=== PATIENT | male | born 1940 | race Caucasian/White ===

== ENCOUNTER 2016-05-04 07:45 | Inpatient (IN) | payer MEDICARE ==
[2016-05-25] MEDS ORDERED: HEPARIN SODIUM,PORCINE 5,000 UNIT/ML 1 ML VIAL SQ ONE (05:00)
[2016-05-25] MEDS ORDERED: LACTATED RINGERS 1,000 ML IV SCH (06:09)
[2016-05-25] MEDS ORDERED: ONDANSETRON 4 MG/2 ML VIAL IVP ONE ×2 (06:09→14:48)
[2016-05-25] MEDS ORDERED: MIDAZOLAM 2 MG/2 ML VIAL IV PRN (06:09)
[2016-05-25] MEDS ORDERED: LIDOCAINE 1% 20 ML VIAL (10MG/ML) FOR IV START INTRADERMA ONE (11:07)
--- NOTE | 2016-05-25 11:36 | P.GSHP ---
History of Present Illness H&P Date: 05/25/16 Chief Complaint: History of diverticulitis This a 75-year-old male who has a history of perforated diverticulitis. Patient presents today for reversal of colostomy. The patient is aware the risks of surgery including wound infection recurrent colostomy and anastomotic dehiscence. - Constitutional Constitutional: Reports as per HPI Past Medical History Past Medical History: GERD/Reflux, Hyperlipidemia, Hypertension, Myocardial Infarction (OK), Osteoarthritis (OA), Sleep Apnea/CPAP/BIPAP Additional Past Medical History / Comment(s): DIVERTICULITIS. no cpap used. LOST MUCH WEIGHT AFTER HIS SURGERIES. Pleural Effusion Last Myocardial Infarction Date:: 2004 History of Any Multi-Drug Resistant Organisms: None Reported Past Surgical History: Bowel Resection, Coronary Bypass/CABG, Heart Catheterization Additional Past Surgical History / Comment(s): THORACENTESIS IN DECEMBER 2015. Toshia Fundloplication 09/23/2015, 11-04-15 EXPLORATORY LAP"TAKEDOWN OF COLORECTAL ANASTOMOSIS W/END COLOSTOMY". CABG 2004-3 vessel, Past Anesthesia/Blood Transfusion Reactions: No Reported Reaction Past Psychological History: Anxiety Additional Psychological History / Comment(s): pt lives with , currently recieving [facility]. nurse 2 x per week, pt x4 days per week. Smoking Status: Former smoker Past Alcohol Use History: None Reported Additional Past Alcohol Use History / Comment(s): Quit smoking 2014- smoked for 20 yrs 1/2 PPD Past Drug Use History: None Reported - Past Family History Mother Family Medical History: Cancer Additional Family Medical History / Comment(s): . Father Family Medical History: No Reported History Additional Family Medical History / Comment(s): FROM OLD AGE AT 89 Medications and Allergies Home Medications Medication Instructions Recorded Confirmed Type Atorvastatin Calcium [Lipitor] 40 mg PO HS 12/30/14 05/09/16 History Metoprolol Tartrate 25 mg PO BID 12/30/14 05/09/16 History Clopidogrel [Plavix] 75 mg PO DAILY 12/22/15 05/25/16 History Isosorbide Mononitrate ER [Imdur] 30 mg PO QAM 12/22/15 05/09/16 History hydrALAZINE HCL [Apresoline] 50 mg PO TID 12/22/15 05/09/16 History Allergies Allergy/AdvReac Type Severity Reaction Status Date / Time morphine AdvReac Wheezing Verified 05/25/16 11:12 Surgical - Exam Vital Signs Temp Pulse Resp BP Pulse Ox 97 F L 54 L 16 114/54 98 05/25/16 11:18 05/25/16 11:18 05/25/16 11:18 05/25/16 11:18 05/25/16 11:18 - General well developed, no distress - Eyes PERRL - ENT normal pinna - Neck no masses - Respiratory normal expansion - Cardiovascular Rhythm: regular - Abdomen Colostomy in left lower quadrant Abdomen: soft, non tender Assessment and Plan Plan: History of perforated diverticula is. We'll perform reversal of colostomy.
[2016-05-25] MEDS ORDERED: PROPOFOL 10 MG/ML 20 ML VIAL IV ONE (12:18)
[2016-05-25] MEDS ORDERED: ePHEDrine 50 MG/ML 1 ML AMP ONE (12:18)
[2016-05-25] MEDS ORDERED: HYDROmorphone (PF) 1 MG/ML ONE (12:18)
[2016-05-25] MEDS ORDERED: SODIUM CHLORIDE 0.9% 100 ML BAG ONE (12:18)
[2016-05-25] MEDS: ceFAZolin 2 GM in SODIUM CHLORIDE 0.9% 100 ML IVPB ONE ×2 (12:18→15:29)
[2016-05-25] MEDS ORDERED: LIDOCAINE 1% INJ 10MG/ML (20 ML MDV) ONE (12:18)
[2016-05-25] MEDS ORDERED: fentaNYL (PF) 50 MCG/ML 2 ML AMP ONE (12:18)
[2016-05-25] MEDS ORDERED: ceFAZolin 1,000 MG VIAL ONE (12:18)
[2016-05-25] MEDS ORDERED: MIDAZOLAM 2 MG/2 ML VIAL ONE (12:18)
[2016-05-25] MEDS ORDERED: VECURONIUM 10 MG VIAL IV ONE (12:18)
[2016-05-25] MEDS ORDERED: SUCCINYLCHOLINE CHLORIDE 100 MG/5 ML SYR IV ONE (12:18)
[2016-05-25] MEDS ORDERED: LACTATED RINGERS 1,000 ML BAG IV ONE (12:18)
[2016-05-25 12:30] LABS: Basophils # (A) 0.1 k/uL (0-0.2); Basophils % (A) 1 %; CH 31.1; CHCM 34.5; Eosinophils # (A) 0.2 k/uL (0-0.7); Eosinophils % (A) 3 %; HCT 39.5 % (39.0-53.0); Luc # (Auto) 0.11; Luc % (Auto) 2; Lymphocytes # (A) 1.8 k/uL (1.0-4.8); Lymphocytes % (A) 24 %; Mean Platelet Volume 8.4; Monocytes # (A) 0.5 k/uL (0-1.0); Monocytes % (A) 7 %; Neutrophils # (A) 4.7 k/uL (1.3-7.7); Neutrophils % (A) 64 %; RBC 4.35 m/uL (4.30-5.90); RDW 14.8 % (11.5-15.5); WBC 7.4 k/uL (3.8-10.6); WBC (Perox) 7.52
[2016-05-25] MEDS: metroNIDAZOLE-NS PMX 500 MG in SALINE 1 100ML.BAG IVPB ONE ×2 (12:33→15:29)
[2016-05-25 12:40] LABS: Calcium 9.6 mg/dL (8.4-10.2)
[2016-05-25 12:50] LABS: Potassium 4.8 mmol/L (3.5-5.1)
[2016-05-25] MEDS ORDERED: LACTATED RINGERS 1,000 ML IV ONE ×2 (13:09→13:55)
[2016-05-25] MEDS: HYDROmorphone 1 MG/ML 1 ML SYRINGE IVP ONE ×3 (14:36→14:56)
--- NOTE | 2016-05-25 14:45 | P.OP ---
Date of Procedure: 05/25/16 Preoperative Diagnosis: History of perforated diverticulitis Postoperative Diagnosis: History of perforated diverticulitis Parastomal hernia Procedure(s) Performed: Reversal colostomy Repair of parastomal hernia Anesthesia: ROJAS Surgeon: Luke Aguillon Estimated Blood Loss (ml): 100 Pathology: other (Colon) Condition: stable Disposition: PACU Description of Procedure: The patient's placed on the operating room table in the supine position. He received general anesthesia. He was then placed in dorsolithotomy position. His abdomen was prepped and draped usual sterile fashion. The abdomen was entered through the midline incision. There were extensive adhesions. Approximately 30 minutes of operative time used to lyse adhesions. At this point the colostomy was visualized. And then the colon was transected with the ALFONSO stapler at the fascial level. There was a stomal hernia. This was repaired using 0 Ethibond suture. Next the rectal stump was mobilized. It had been previously marked with a 2-0 Prolene. The proximal colon was examined. And then a pursestring device placed across proximal colon. The colon was then opened and the EEA 25 mm anvil was placed in the colon. The pursestring was secured. And then the 25 mm EEA stapler was placed into the anus and passed throughout the rectum. The spike was driven through the rectal staple line. The anvil was then connected to the stapler. The stapler is then fired and then the anvil and stapler withdrawn. There were 2 intact tissue rings on the stapler. Next a hydrocele present used to occlude the proximal colon and then the anastomosis was checked with air insufflation. There is no evidence of extravasation. Another air pressure was used to have the air escaped from the anus. At this point the abdomen was irrigated there is no bleeding seen. The fascia was closed with looped #1 PDS suture. The skin was closed arianne. And then the colostomy was removed by dividing the mucosa and cutaneous junction with the left cautery. The colostomy stump was then withdrawn. A Abigail drains placed in the colostomy site and then the skin was closed arianne. Patient was sent to recovery in stable condition.
[2016-05-25] MEDS ORDERED: METOCLOPRAMIDE 5 MG/ML 2 ML VIAL IVP PRN (14:46)
[2016-05-25] MEDS ORDERED: ONDANSETRON 4 MG/2 ML VIAL IVP PRN (14:46)
[2016-05-25] MEDS ORDERED: hydrALAZINE HCL 20 MG/ML 1 ML VIAL IVP ONE (15:06)
[2016-05-25] MEDS: D5-0.45% NACL WITH KCL 20MEQ/L 1,000 ML IV SCH (19:53)
[2016-05-26] MEDS: HYDROmorphone 1 MG/ML 1 ML SYRINGE IVP PRN ×3 (00:59→08:47)
[2016-05-26] MEDS: D5-0.45% NACL WITH KCL 20MEQ/L 1,000 ML IV SCH ×4 (01:01→23:29)
[2016-05-26 07:31] LABS: Calcium 8.9 mg/dL (8.4-10.2); Potassium 4.9 mmol/L (3.5-5.1)
[2016-05-26 07:57] LABS: Basophils # (A) 0.1 k/uL (0-0.2); Basophils % (A) 1 %; CH 30.7; CHCM 33.6; Eosinophils # (A) 0.1 k/uL (0-0.7); Eosinophils % (A) 1 %; HCT 39.6 % (39.0-53.0); HDW 3.21; HGB 13.2 gm/dL (13.0-17.5); Luc % (Auto) 1; Lymphocytes # (A) 1.3 k/uL (1.0-4.8); Lymphocytes % (A) 11 %; MCH 30.6 pg (25.0-35.0); MCHC 33.2 g/dL (31.0-37.0); Mean Platelet Volume 7.7; Monocytes # (A) 0.5 k/uL (0-1.0); Monocytes % (A) 5 %; Neutrophils # (A) 9.4 k/uL (1.3-7.7); Neutrophils % (A) 82 %; RBC 4.31 m/uL (4.30-5.90); RDW 14.7 % (11.5-15.5); WBC 11.5 k/uL (3.8-10.6); WBC (Perox) 11.37
[2016-05-26] MEDS ORDERED: IPRATROPIUM-ALBUTEROL 3 ML NEB INHALATION PRN (10:29)
[2016-05-26] MEDS ORDERED: LORazepam 2 MG/ML SYRINGE IV PRN (12:21)
--- NOTE | 2016-05-26 12:24 | P.PN ---
Subjective Principal diagnosis: Diverticulitis Patient underwent colostomy reversal yesterday. He is having mild spasm-like pain at times. No bowel function. Denies nausea or vomiting. He is afebrile. White blood cell count 11.5. Objective - Vital Signs Vital signs: Vital Signs Temp 97.3 F L 05/26/16 02:53 Pulse 90 05/26/16 02:53 Resp 16 05/26/16 02:53 BP 157/73 05/26/16 02:53 Pulse Ox 95 05/26/16 02:53 Intake & Output 05/25/16 05/26/16 05/26/16 18:59 06:59 18:59 Intake Total 2900 1125 Output Total 1050 600 Balance 1850 525 Intake: IV 2900 1125 D5-0.45% NaCl with KCl 1125 20Meq/l 1,000 ml @ 125 mls/hr IV .Q8H [facility] Rx#: [id number] Output: Urine 150 600 Estimated Blood Loss 900 - Exam Abdomen: Soft, nondistended, dressing intact, serosanguineous drainage from the ostomy incision site, mild tenderness - Labs CBC & Chem 7: 05/26/16 07:01 05/26/16 07:01 Labs: Abnormal Lab Results - Last 24 Hours (Table) 05/25/16 05/26/16 05/26/16 Range/Units 12:16 07:01 07:01 WBC 11.5 H (3.8-10.6) k/uL Neutrophils # 9.4 H (1.3-7.7) k/uL Chloride 109 H 111 H (98-107) mmol/L Carbon Dioxide 21 L 19 L (22-30) mmol/L BUN 32 H 29 H (9-20) mg/dL Creatinine 2.61 H 2.23 H (0.66-1.25) mg/dL Glucose 135 H (74-99) mg/dL Assessment and Plan (1) Diverticulitis Narrative/Plan: Increase activity level. Change abdominal dressing today. Add Ativan for anxiety and pain purposes. Status: Acute
--- NOTE | 2016-05-26 15:17 | CONS ---
DATE OF CONSULTATION: Bala Velasco is a 75-year-old male who presented to the hospital for reversal of colostomy. He is in the postoperative state and has not had a bowel movement. He does feel some gurgling. He has pain at his abdominal wound site, but otherwise does not have any chest pain. He is slightly short of breath and has required oxygen. His past medical history is positive for gastroesophageal reflux disease, hyperlipidemia, hypertension, coronary artery disease, acute myocardial infarction, obstructive sleep apnea for which he has CPAP, osteoarthritis, coronary artery bypass in 2004, Toshia fundoplication, exploratory laparotomy with takedown of colorectal anastomosis with subsequent end colostomy and diverticulitis. SOCIAL HISTORY: The patient is a former smoker. FAMILY HISTORY: Positive for cancer in his mother. Father of old age at age 89. Medications prior to admission were hydralazine, metoprolol, Imdur, hydrocodone with acetaminophen, Plavix, Lipitor and Xanax. On physical examination, respiratory rate 16, pulse rate 94, temperature 97.7, blood pressure 180/81, O2 sat on room air is 97%. HEENT is unremarkable. Chest reveals decreased breath sounds at the bases. Cardiovascular system reveals an S1 and S2. Abdomen is soft. There is surgical dressing in place. There is trace pedal edema. Labs reveal a white count of 11.5, hemoglobin 13.2. Sodium 140, potassium 4.9, chloride 119, bicarb 19, BUN 29, creatinine 2.23. IMPRESSION: 1. Status post reversal of colostomy. 2. Coronary artery disease with cardiomyopathy. 3. Possible chronic obstructive pulmonary disease. 4. Hypertension. PLAN: At this point in time, continue supplemental oxygen. Keep him on antihypertensive medications. Continue incentive spirometry. Depending on how he does, we shall make further changes to his care.
[2016-05-26] MEDS: ALPRAZolam 0.25 MG TAB PO SCH ×2 (16:03→23:07)
[2016-05-26] MEDS: hydrALAZINE HCL 50 MG TAB PO SCH ×2 (16:04→23:26)
--- NOTE | 2016-05-26 16:54 | CONS ---
DATE OF CONSULTATION: CHIEF COMPLAINT: A 75-year-old white male postoperative for reversal of colostomy. He is feeling better. He is short of breath though and wants something for his breathing. He is requiring oxygen. Normally does not take oxygen at home. He has a past medical history of obstructive sleep apnea for which he takes CPAP, CABG surgery and Toshia, exploratory laparotomy and takedown colorectal anastomosis with subsequent colostomy and diverticulosis. He is a former smoker. Mom had cancer, at old age 89. Medications: 1. Imdur. 2. Metoprolol. 3. Hydralazine. 4. Plavix. 5. Lipitor. 6. Xanax. 7. Hydrocodone. REVIEW OF SYSTEMS: PSYCH: Negative. NEURO: Negative. CARDIAC: Negative. PULMONARY: As mentioned above. GI: As mentioned above. : Negative. VASCULAR: Negative. Immune: Negative. INTEGUMENT: Negative. PHYSICAL EXAMINATION: Blood pressure is high at 170s to 180s/70s to 80s. Temperature 97.7, O2 97% on room air. Chest decreased breath sounds at the bases. CARDIOVASCULAR: S1, S2. ABDOMEN: Soft, nontender. PSYCHIATRIC: Fair mood and affect. NEUROLOGIC: Alert and oriented x3. BUN is 29, creatinine 2.23, potassium 4.9, sodium 140. ASSESSMENT: 1. Status post reversal of colostomy. 2. Coronary artery disease. 3. Cardiomyopathy. 4. Chronic obstructive pulmonary disease. 5. Hypertension. Continue on updraft treatments, antihypertensive medications and incentive spirometry. Home medications are reordered. Updrafts will be given with DuoNeb. Please see further orders.
[2016-05-26] MEDS: ATORVASTATIN 40 MG TAB PO SCH (19:27)
[2016-05-26] MEDS: METOPROLOL TARTRATE 25 MG TAB PO SCH (19:27)
[2016-05-26] MEDS: HEPARIN SODIUM,PORCINE 5,000 UNIT/ML 1 ML VIAL SQ SCH (23:07)
[2016-05-26] MEDS: HYDROcodone/APAP 7.5-325MG 1 EACH TAB PO PRN (23:11)
[2016-05-27] MEDS: HYDROcodone/APAP 7.5-325MG 1 EACH TAB PO PRN ×3 (06:22→17:17)
[2016-05-27 07:27] LABS: Basophils % (A) 0 %; CH 30.7; CHCM 33.4; Eosinophils # (A) 0.4 k/uL (0-0.7); Eosinophils % (A) 4 %; HCT 33.8 % (39.0-53.0); HDW 3.16; HGB 11.1 gm/dL (13.0-17.5); Luc # (Auto) 0.11; Luc % (Auto) 1; Lymphocytes % (A) 11 %; MCH 30.5 pg (25.0-35.0); MCV 92.6 fL (80.0-100.0); Mean Platelet Volume 7.7; Monocytes # (A) 0.5 k/uL (0-1.0); Monocytes % (A) 5 %; Neutrophils % (A) 78 %; RBC 3.65 m/uL (4.30-5.90); RDW 14.6 % (11.5-15.5); WBC (Perox) 9.63
[2016-05-27 07:42] LABS: Calcium 8.8 mg/dL (8.4-10.2); Total Bilirubin 0.5 mg/dL (0.2-1.3); Total Protein 5.1 g/dL (6.3-8.2)
[2016-05-27 07:48] LABS: Potassium 4.6 mmol/L (3.5-5.1)
[2016-05-27] MEDS: ALPRAZolam 0.25 MG TAB PO SCH ×3 (08:28→19:46)
[2016-05-27] MEDS: ISOSORBIDE MONONITRATE ER 30 MG TAB.ER.24H PO SCH (08:28)
[2016-05-27] MEDS: hydrALAZINE HCL 50 MG TAB PO SCH ×3 (08:29→19:46)
[2016-05-27] MEDS: METOPROLOL TARTRATE 25 MG TAB PO SCH ×2 (08:29→19:47)
[2016-05-27] MEDS: HEPARIN SODIUM,PORCINE 5,000 UNIT/ML 1 ML VIAL SQ SCH ×2 (08:29→19:47)
[2016-05-27] MEDS: CLOPIDOGREL 75 MG TAB PO SCH (08:29)
--- NOTE | 2016-05-27 11:20 | P.PN ---
Subjective Principal diagnosis: Diverticulitis Patient doing better today. Spastic pain is improved. He is hungry. No bowel function. White blood cell count is normal. T-max 99 Objective - Vital Signs Vital signs: Vital Signs Temp 99.0 F 05/27/16 07:00 Pulse 66 05/27/16 07:00 Resp 16 05/27/16 08:34 BP 129/66 05/27/16 07:00 Pulse Ox 98 05/27/16 08:34 Intake & Output 05/26/16 05/27/16 05/27/16 18:59 06:59 18:59 Intake Total 1000 1125 Output Total 2550 300 Balance 1000 -1425 -300 Intake: IV 1000 1125 D5-0.45% NaCl with KCl 1000 1125 20Meq/l 1,000 ml @ 125 mls/hr IV .Q8H [facility] Rx#: [id number] Output: Urine 2550 300 Uretheral (Rubio) 2550 300 Other: Voiding Method Indwelling Catheter Indwelling Catheter - Exam Abdomen: Soft, nondistended, mild tenderness, incision clean and dry - Labs CBC & Chem 7: 05/27/16 06:46 05/27/16 06:46 Labs: Abnormal Lab Results - Last 24 Hours (Table) 05/27/16 05/27/16 Range/Units 06:46 06:46 RBC 3.65 L (4.30-5.90) m/uL Hgb 11.1 L (13.0-17.5) gm/dL Hct 33.8 L (39.0-53.0) % Chloride 113 H (98-107) mmol/L Carbon Dioxide 21 L (22-30) mmol/L BUN 21 H (9-20) mg/dL Creatinine 2.10 H (0.66-1.25) mg/dL Glucose 107 H (74-99) mg/dL AST 12 L (17-59) U/L Total Protein 5.1 L (6.3-8.2) g/dL Albumin 2.7 L (3.5-5.0) g/dL Assessment and Plan (1) Diverticulitis Narrative/Plan: Increase activity. Begin clear liquids. Status: Acute
[2016-05-27] MEDS: D5-0.45% NACL WITH KCL 20MEQ/L 1,000 ML IV SCH ×3 (17:17→22:12)
--- NOTE | 2016-05-27 18:59 | PN ---
DATE OF SERVICE: 05/27/2016 He does not complain of shortness of breath. He is using his incentive spirometer as directed. He has had some gurgling, but no bowel movements yet. On physical examination, his blood pressure 142/63, respiratory rate 17, pulse rate of 61, temperature 97. O2 sat on room air is 100%. HEENT is unremarkable. Chest reveals mild prolonged expiration, no clear wheeze. Cardiovascular system reveals an S1 and S2. ABDOMEN: Soft. Bowel sounds are sluggish but heard. There is no edema. Labs reveal a white count of 9, hemoglobin of 11.1. Sodium 141, potassium 4.6, chloride 113, bicarb 21, BUN 21, creatinine of 2.10. IMPRESSION: 1. Status post reversal of colostomy. 2. Coronary artery disease with cardiomyopathy. 3. Chronic obstructive pulmonary disease. 4. Hypertension. Continue incentive spirometry. Increase his activity level. He is off his oxygen, if he does get hypoxic, he may require gentle diuresis. Depending on how he does, we shall make further changes to his care.
[2016-05-27] MEDS: ATORVASTATIN 40 MG TAB PO SCH (19:47)
--- NOTE | 2016-05-27 19:50 | PN ---
75-year-old white male status post colostomy repair, COPD and breathing is much improved since yesterday with the updraft treatments I ordered yesterday. ( ) slowly removed today, as he wants to pee into a regular jar and take his Rubio catheter. I told him I would get it removed. 98% to 100% on room air. Blood pressure is 150s to 120s over 60s. Respiratory rate 16 to 18, pulse is 60s to 70s, temperature 97 to 98. CARDIOVASCULAR: S1 and S2. LUNGS: Transmitted upper airway signs. Decreased breath sounds x4. GI: Soft. Wound appears to be intact. Some mild blood oozing from the wound. HEMATOLOGIC: Negative Homans. ASSESSMENT: 1. Status post colostomy and repair. 2. Chronic obstructive pulmonary disease. Please see further orders on the chart. Rubio catheter will be removed. Medicines reviewed.
[2016-05-28] MEDS: HYDROcodone/APAP 7.5-325MG 1 EACH TAB PO PRN ×3 (07:10→22:59)
[2016-05-28] MEDS: ALPRAZolam 0.25 MG TAB PO SCH ×3 (07:49→21:11)
[2016-05-28] MEDS: ISOSORBIDE MONONITRATE ER 30 MG TAB.ER.24H PO SCH (07:49)
[2016-05-28] MEDS: hydrALAZINE HCL 50 MG TAB PO SCH ×3 (07:49→21:11)
[2016-05-28] MEDS: HEPARIN SODIUM,PORCINE 5,000 UNIT/ML 1 ML VIAL SQ SCH ×2 (07:49→22:56)
[2016-05-28] MEDS: METOPROLOL TARTRATE 25 MG TAB PO SCH ×2 (07:50→21:11)
[2016-05-28] MEDS: D5-0.45% NACL WITH KCL 20MEQ/L 1,000 ML IV SCH ×4 (08:18→23:23)
[2016-05-28] MEDS: CLOPIDOGREL 75 MG TAB PO SCH (10:36)
--- NOTE | 2016-05-28 14:25 | P.PN ---
Subjective 75-year-old being seen on rounds. Currently is resting in bed. Patient currently is denying any dizziness lightheadedness shortness of breath or chest pain. Patient reportedly had a small bowel movement this morning according to the patient. The temp maxed at 99. Patient is postop May 25 a repair of a parastomal hernia with reversal of colostomy done for a perforated diverticulitis Objective - Vital Signs Vital signs: Vital Signs Temp 97.0 F L 05/28/16 13:48 Pulse 61 05/28/16 13:48 Resp 16 05/28/16 13:48 BP 159/72 05/28/16 13:48 Pulse Ox 97 05/28/16 13:48 Intake & Output 05/27/16 05/28/16 05/28/16 18:59 06:59 18:59 Intake Total 1960 1125 1000 Output Total 700 880 500 Balance 1260 245 500 Intake: IV 1000 1125 400 D5-0.45% NaCl with KCl 1000 1125 400 20Meq/l 1,000 ml @ 50 mls /hr IV .Q20H [facility] Rx#: [id number] Oral 960 600 Output: Urine 700 880 500 Uretheral (Rubio) 300 Other: Voiding Method Urinal # Voids 2 # Bowel Movements 1 - Exam Physical exam 75-year-old gentleman resting in bed no postop events noted Lungs diminished at the bases otherwise adequate air movement Heart S1-S2 audible regular Abdomen soft dressing to the surgical site dry. Incontinently urine. No stool. No reports of nausea vomiting bowel tones present Extremities no edema to the upper or lower extremities - Labs CBC & Chem 7: 05/27/16 06:46 05/27/16 06:46 Assessment and Plan Plan: Impression Reversal colostomy with repair of a parastomal hernia done on 05/25/2016 History of perforated diverticulitis COPD stable Hypertension Chronic congestive heart failure systolic dysfunction compensated EF 45-50 on echocardiogram Chronic renal failure stage III Plan Continue postop surgical care per surgical service Increase activity with fall precautions Encourage the use of the incentive spirometer use every 1 hour while awake Resume home meds as appropriate Further recommendations pending DVT and GI prophylaxis The above dictated assessment and findings were discussed with dr marie . Impression and the plan of care have been dictated as directed. Maribel Matias nurse practitioner acting as a scribe for dr marie
[2016-05-28 15:09] VITALS: BMI 21.7
--- NOTE | 2016-05-28 18:02 | P.PN ---
Subjective Principal diagnosis: Diverticulitis Patient is a 75-year-old male with medical history significant for perforated diverticulitis and parastomal hernia status post reversal of colostomy and repair of parastomal hernia, postop day #3. Patient is evaluated on the surgical floor where he sitting on the side of the bed. Patient complains of incisional pain currently rated 7 out of 10. Patient complains of urinary frequency. Denies chills, nausea, vomiting, shortness of breath, or chest pain. Patient denies flatus or bowel movements. Afebrile. No evidence of leukocytosis. Objective - Vital Signs Vital signs: Vital Signs Temp 97.0 F L 05/28/16 13:48 Pulse 61 05/28/16 13:48 Resp 16 05/28/16 13:48 BP 159/72 05/28/16 13:48 Pulse Ox 97 05/28/16 13:48 Intake & Output 05/27/16 05/28/16 05/28/16 18:59 06:59 18:59 Intake Total 1960 1125 1000 Output Total 700 880 500 Balance 1260 245 500 Weight 61.235 kg Intake: IV 1000 1125 400 D5-0.45% NaCl with KCl 1000 1125 400 20Meq/l 1,000 ml @ 50 mls /hr IV .Q20H [facility] Rx#: [id number] Oral 960 600 Output: Urine 700 880 500 Uretheral (Rubio) 300 Other: Voiding Method Urinal # Voids 2 # Bowel Movements 1 - Exam GENERAL: Pt awake and alert, sitting on the side of the bed, appears uncomfortable. LUNGS: Breath sounds diminished to auscultation bilaterally. No wheezes, rales , or rhonchi. HEART: Heart S1, S2, no S3 or S4. Regular rate and rhythm. No murmurs, rubs or gallops. ABDOMEN: Soft, moderate incisional tenderness, nondistended, normoactive bowel sounds. No guarding, no rebound. No masses or organomegaly appreciated. Abdominal dressings dry and intact with some old sanguinous blood. [place] drain intact. NEUROLOGICAL: Pt oriented x 3. - Labs CBC & Chem 7: 05/27/16 06:46 05/27/16 06:46 Assessment and Plan Plan: Impression: 1. History of perforated diverticulitis status post reversal of colostomy on . 2. Parastomal hernia status post repair on 05/25/2016. Plan: 1. Continue clear liquid diet until patient has a bowel movement. Continue supportive treatment and pain management. Increase activity. Continue local wound care. Continue to follow with medical team. The above impression and plan have been discussed and directed by Dr. Aguillon. Declan ARANDA acting as scribe for Dr. Contreras.
--- NOTE | 2016-05-28 18:36 | PN ---
This patient was seen, evaluated, examined. Patient is status post reversal of colostomy. Clinically doing well. Patient has been complaining of increased frequency, has been getting IV fluids as well. Hemodynamic status is stable. Last set of vitals include blood pressure is 170/76, respiratory rate 16 to 18, heart rate 80, temperature 98, saturation 95% to 96%. HEENT: Unremarkable. NECK: Supple. LUNGS: Good air entry bilaterally. HEART: Regular rate and rhythm. ABDOMEN: Soft. No rebound or rigidity. EXTREMITIES: +1 peripheral pulses. NEUROLOGICAL EXAMINATION: Otherwise, awake and alert. Labs reviewed. Medications reviewed. IMPRESSION: 1. Severe chronic obstructive pulmonary disease, emphysema. 2. Chronic obstructive lung disease and chronic persistent asthma as well as obstructive sleep apnea, 3. Coronary artery disease, history of coronary artery bypass grafting. 4. History of advanced diverticulitis, status post colostomy, followed by reversal; doing well in that regard. Will follow.
[2016-05-28] MEDS: ATORVASTATIN 40 MG TAB PO SCH (21:11)
[2016-05-29 08:28] LABS: Basophils % (A) 1 %; CH 30.9; CHCM 33.2; Eosinophils # (A) 0.4 k/uL (0-0.7); Eosinophils % (A) 8 %; HCT 33.5 % (39.0-53.0); HGB 11.1 gm/dL (13.0-17.5); Luc # (Auto) 0.07; Luc % (Auto) 1; Lymphocytes # (A) 1.1 k/uL (1.0-4.8); Lymphocytes % (A) 20 %; MCHC 33.1 g/dL (31.0-37.0); MCV 93.8 fL (80.0-100.0); Monocytes # (A) 0.3 k/uL (0-1.0); Monocytes % (A) 5 %; Neutrophils # (A) 3.4 k/uL (1.3-7.7); Neutrophils % (A) 65 %; RBC 3.57 m/uL (4.30-5.90); RDW 14.6 % (11.5-15.5); WBC 5.2 k/uL (3.8-10.6); WBC (Perox) 5.57
[2016-05-29] MEDS: ISOSORBIDE MONONITRATE ER 30 MG TAB.ER.24H PO SCH (08:31)
[2016-05-29] MEDS: ALPRAZolam 0.25 MG TAB PO SCH ×3 (08:31→21:25)
[2016-05-29] MEDS: hydrALAZINE HCL 50 MG TAB PO SCH ×3 (08:31→21:25)
[2016-05-29] MEDS: HEPARIN SODIUM,PORCINE 5,000 UNIT/ML 1 ML VIAL SQ SCH ×2 (08:31→21:25)
[2016-05-29] MEDS: METOPROLOL TARTRATE 25 MG TAB PO SCH ×2 (08:31→21:25)
[2016-05-29] MEDS: CLOPIDOGREL 75 MG TAB PO SCH (08:31)
[2016-05-29] MEDS: HYDROcodone/APAP 7.5-325MG 1 EACH TAB PO PRN ×2 (08:35→14:14)
[2016-05-29 08:42] LABS: Calcium 9.7 mg/dL (8.4-10.2); Potassium 4.2 mmol/L (3.5-5.1)
--- NOTE | 2016-05-29 12:15 | P.PN ---
Subjective Pleasant 75 rolled gentleman who is being seen on rounds this morning patient has just returned from the bathroom gait noted to be steady. Patient states pain medication effective for pain control. Patient states he did have a bowel movement the day before. Patient is reportedly using the urinal with no difficulty. Reports no nausea vomiting reports tolerating a diet. Has remained afebrile with no white count Objective - Vital Signs Vital signs: Vital Signs Temp 97.7 F 05/29/16 08:00 Pulse 60 05/29/16 08:00 Resp 14 05/29/16 08:00 BP 151/69 05/29/16 08:00 Pulse Ox 96 05/29/16 08:00 Intake & Output 05/28/16 05/29/16 05/29/16 18:59 06:59 18:59 Intake Total 1000 600 360 Output Total 500 580 475 Balance 500 20 -115 Weight 61.235 kg Intake: IV 400 600 D5-0.45% NaCl with KCl 400 600 20Meq/l 1,000 ml @ 50 mls /hr IV .Q20H [facility] Rx#: [id number] Oral 600 360 Output: Urine 500 580 475 Other: Voiding Method Urinal Urinal # Voids 2 # Bowel Movements 1 - Exam Physical exam A 75 -year-old male currently resting in bed pleasant cooperative oriented 3 Lungs adequate air movement bilaterally. No conversational dyspnea noted. No cough noted. On room air sats are documented 96% Heart S1-S2 audible regular no murmur denying chest pain Abdomen not distended slight tenderness at the surgical site. Abdominal dressing dry. No facial grimacing with palpitation to the abdominal wall. Reports no nausea reports tolerating a diet Extremities no evidence of edema to the upper or lower extremity - Labs CBC & Chem 7: 05/29/16 08:05 05/29/16 08:03 Labs: Abnormal Lab Results - Last 24 Hours (Table) 05/29/16 05/29/16 Range/Units 08:03 08:05 RBC 3.57 L (4.30-5.90) m/uL Hgb 11.1 L (13.0-17.5) gm/dL Hct 33.5 L (39.0-53.0) % Chloride 111 H (98-107) mmol/L Creatinine 1.98 H (0.66-1.25) mg/dL Glucose 111 H (74-99) mg/dL Assessment and Plan Plan: Impression Reversal colostomy with repair of a parastomal hernia done on 05/25/2016 History of perforated diverticulitis resulting in a colostomy COPD stable Hypertension Chronic congestive heart failure systolic dysfunction compensated EF 45-50 on echocardiogram Chronic renal failure stage III Plan Continue postop surgical care per surgical service Increase activity with fall precautions Encourage the use of the incentive spirometer use every 1 hour while awake Resume home meds as appropriate Further recommendations pending DVT and GI prophylaxis Discharge timing defer to surgical service from a medical perspective is felt to be medically stable and appropriate to proceed The above dictated assessment and findings were discussed with dr marie . Impression and the plan of care have been dictated as directed. Maribel Matias nurse practitioner acting as a scribe for dr marie
[2016-05-29 14:28] VITALS: RESP 16
--- NOTE | 2016-05-29 15:41 | P.PN ---
Subjective Principal diagnosis: Diverticulitis Patient is a 75-year-old male with medical history significant for perforated diverticulitis and parastomal hernia status post reversal of colostomy and repair of parastomal hernia, postop day #4. Patient is evaluated on the surgical floor where he lying in bed. Patient is feeling better. Denies chills , nausea, vomiting, shortness of breath, or chest pain. Incisional pain controlled. Patient denies flatus with bowel movements. Tolerating soft food diet. Afebrile. No evidence of leukocytosis. Objective - Vital Signs Vital signs: Vital Signs Temp 98.2 F 05/29/16 14:27 Pulse 71 05/29/16 14:27 Resp 16 05/29/16 14:27 BP 182/84 05/29/16 14:27 Pulse Ox 96 05/29/16 14:27 Intake & Output 05/28/16 05/29/16 05/29/16 18:59 06:59 18:59 Intake Total 1000 600 760 Output Total 500 580 775 Balance 500 20 -15 Weight 61.235 kg Intake: IV 400 600 D5-0.45% NaCl with KCl 400 600 20Meq/l 1,000 ml @ 50 mls /hr IV .Q20H [facility] Rx#: [id number] Oral 600 760 Output: Urine 500 580 775 Other: Voiding Method Urinal Urinal # Voids 2 # Bowel Movements 1 - Exam GENERAL: Pt awake and alert, sitting on the side of the bed, appears uncomfortable. LUNGS: Breath sounds diminished to auscultation bilaterally. No wheezes, rales , or rhonchi. HEART: Heart S1, S2, no S3 or S4. Regular rate and rhythm. No murmurs, rubs or gallops. ABDOMEN: Soft, moderate incisional tenderness, nondistended, normoactive bowel sounds. No guarding, no rebound. No masses or organomegaly appreciated. Abdominal dressings dry and intact with some old sanguinous blood. Abigail drain intact. NEUROLOGICAL: Pt oriented x 3. - Labs CBC & Chem 7: 05/29/16 08:05 05/29/16 08:03 Labs: Abnormal Lab Results - Last 24 Hours (Table) 05/29/16 05/29/16 Range/Units 08:03 08:05 RBC 3.57 L (4.30-5.90) m/uL Hgb 11.1 L (13.0-17.5) gm/dL Hct 33.5 L (39.0-53.0) % Chloride 111 H (98-107) mmol/L Creatinine 1.98 H (0.66-1.25) mg/dL Glucose 111 H (74-99) mg/dL Assessment and Plan Plan: Impression: 1. History of perforated diverticulitis status post reversal of colostomy on . 2. Parastomal hernia status post repair on 05/25/2016. Plan: 1. Continue soft diet. Continue supportive treatment and pain management. Increase activity. Continue local wound care. Continue to follow with medical team. The above impression and plan have been discussed and directed by Dr. Aguillon. Declan ARANDA acting as scribe for Dr. Contreras.
[2016-05-29] MEDS: D5-0.45% NACL WITH KCL 20MEQ/L 1,000 ML IV SCH (16:33)
[2016-05-29] MEDS: ATORVASTATIN 40 MG TAB PO SCH (21:25)
[2016-05-30 07:51] VITALS: BP 147/78; PULSE 73; TEMP 98
[2016-05-30] MEDS: ALPRAZolam 0.25 MG TAB PO SCH ×2 (08:55→16:31)
[2016-05-30] MEDS: METOPROLOL TARTRATE 25 MG TAB PO SCH (08:56)
[2016-05-30] MEDS: hydrALAZINE HCL 50 MG TAB PO SCH ×2 (08:56→16:31)
[2016-05-30] MEDS: HEPARIN SODIUM,PORCINE 5,000 UNIT/ML 1 ML VIAL SQ SCH (08:56)
[2016-05-30] MEDS: CLOPIDOGREL 75 MG TAB PO SCH (08:56)
[2016-05-30] MEDS: ISOSORBIDE MONONITRATE ER 30 MG TAB.ER.24H PO SCH (08:57)
[2016-05-30] MEDS: HYDROcodone/APAP 7.5-325MG 1 EACH TAB PO PRN ×3 (09:12→16:32)
--- NOTE | 2016-05-30 13:39 | P.PN ---
Subjective 75-year-old male up ambulating in the room this morning. Patient states he had a bowel movement this morning. Patient is denying any cough fever chills shortness breath or chest pain. Patient states pain medication has been effective for pain control. Patient states is anxious to be discharged home. Patient is postop day 5 of reversal of colostomy and a repair of a parastomal hernia. Patient does have a past medical history significant for perforated diverticulitis Objective - Vital Signs Vital signs: Vital Signs Temp 98.0 F 05/30/16 07:50 Pulse 73 05/30/16 07:50 Resp 16 05/30/16 07:50 BP 147/78 05/30/16 07:50 Pulse Ox 96 05/30/16 07:50 Intake & Output 05/29/16 05/30/16 05/30/16 18:59 06:59 18:59 Intake Total 1000 480 Output Total 1475 900 Balance -475 -900 480 Intake: Oral 1000 480 Output: Urine 1475 900 Other: Voiding Method Urinal Urinal # Voids 1 - Exam Physical exam 75 -year-old male pleasant oriented 3 up in room states has been up ambulating in the [place] denies any dizziness lightheadedness or shortness of breath or chest pain Lungs essentially clear on room air no cough noted Heart S1-S2 audible regular Abdomen currently has an abdominal binder in place soft nontender not distended bowel tones 4 quadrants urinating no difficulty Extremities no edema noted - Labs CBC & Chem 7: 05/29/16 08:05 05/29/16 08:03 Assessment and Plan Plan: Impression Reversal colostomy with repair of a parastomal hernia done on 05/25/2016 History of perforated diverticulitis resulting in a colostomy COPD stable Hypertension Chronic congestive heart failure systolic dysfunction compensated EF 45-50 on echocardiogram Chronic renal failure stage III Past medical history for perforated diverticulitis resulting in an colostomy Plan Continue postop surgical care per surgical service Increase activity with fall precautions Encourage the use of the incentive spirometer use every 1 hour while awake Resume home meds as appropriate Further recommendations pending DVT and GI prophylaxis Discharge timing defer to surgical service from a medical perspective is felt to be medically stable and appropriate to proceed The above dictated assessment and findings were discussed with dr marie . Impression and the plan of care have been dictated as directed. Maribel Matias nurse practitioner acting as a scribe for dr marie
[2016-05-30] MEDS: D5-0.45% NACL WITH KCL 20MEQ/L 1,000 ML IV SCH (16:34)
--- NOTE | 2016-05-30 16:51 | PN ---
This patient was seen, evaluated, examined. This is a 75-year-old with reversal of colostomy. Patient clinically has been doing well, awake and alert. He is on full-liquid diet, tolerating well. No other specific complaints are present. Breathing comfortably. Denies any chest pain. Blood pressure is 150/80, respiratory rate 16, pulse 73, temperature 98, saturation 96%. HEENT: Unremarkable. NECK: Supple. LUNGS: Good air entry bilaterally. HEART: Regular rate, rhythm. ABDOMEN: Soft. NEUROLOGICAL EXAMINATION: Otherwise awake and alert. Labs reviewed. Medications reviewed as well. IMPRESSION: 1. Status post diverticulitis and perforation requiring colostomy, now with reversal of colostomy and repair of parastomal hernia, doing well. 2. Severe chronic obstructive pulmonary disease and chronic persistent asthma. 3. Hypertension, hypertensive cardiovascular disease. 4. Coronary artery disease. 5. History of coronary artery bypass grafting. 6. Congestive heart failure with chronic systolic heart failure related to above. 7. Chronic renal failure. 8. Restless leg syndrome. 9. Sleep apnea, on CPAP machine. PLAN: As above. Continue supportive care. Increase activity as tolerated. I agree with discharge planning with followup in outpatient setting.
--- NOTE | 2016-05-30 17:07 | P.DS ---
Providers Date of admission: 05/25/16 10:34 Expected date of discharge: 05/30/16 Attending physician: Luke Aguillon Consults: 05/25/16 14:46 Consult Physician Routine Consulting Provider: Karthikeyan Mendiola Consult Reason/Comments: Medical management Do you want consulting provider notified?: Yes 05/25/16 14:49 Consult Physician Routine Consulting Provider: Gerardo Quiros Consult Reason/Comments: Medical management Do you want consulting provider notified?: Yes Primary care physician: Gerardo [facility] Course: Patient is a 75-year-old male with medical history significant for perforated diverticulitis who presented to the hospital for reversal of colostomy and repair of parastomal hernia. Patient tolerated procedure well. Patient had an uneventful post operative course. Patient was felt stable for discharge to home with home care. Discharge diagnoses: History of perforated diverticulitis resulting in a colostomy status post reversal of colostomy with repair of parastomal hernia on 05/25/2016. The above impression and plan have been discussed and directed by Dr. Aguillon. Declan ARANDA acting as scribe for Dr. Aguillon. Procedures: Reversal colostomy; repair of parastomal hernia Patient Condition at Discharge: Good Plan - Discharge Summary New Discharge Prescriptions: HYDROcodone/APAP 7.5-325MG [[place] 7.5-325] 1 each PO QID PRN #28 tab PRN Reason: Pain Discharge Medication List Atorvastatin Calcium [Lipitor] 40 mg PO HS 12/30/14 [History] Metoprolol Tartrate 25 mg PO BID 12/30/14 [History] ALPRAZolam [Xanax] 0.25 mg PO TID #21 tab 11/14/15 [Rx] Clopidogrel [Plavix] 75 mg PO DAILY 12/22/15 [History] Isosorbide Mononitrate ER [Imdur] 30 mg PO QAM 12/22/15 [History] hydrALAZINE HCL [Apresoline] 50 mg PO TID 12/22/15 [History] HYDROcodone/APAP 7.5-325MG [[place] 7.5-325] 1 each PO QID PRN #28 tab 05/29/16 [ Rx] Follow up Appointment(s)/Referral(s): Gerardo Quiros MD [Primary Care Provider] - 06/01/16 1:45 pm (FOLLOW UP IN OFFICE IN 1-2 DAYS.) [facility], [NON-STAFF] - Karthikeyan Mendiola MD [STAFF PHYSICIAN] - 06/04/16 (PLEASE CALL FOR APPOINTMENT, OFFICE CLOSED AT TIME OF DISCHARGE.) Luke Aguillon MD [STAFF PHYSICIAN] - 06/07/16 3:50 pm Patient Instructions/Handouts: Open Colostomy Reversal (DC), Staple Care (DC) Activity/Diet/Wound Care/Special Instructions: No heavy lifting, pushing, or pulling items greater than 10 pounds. Soft diet Shower daily, no soaking in bath tubs, pools, or hot tubs. No driving while taking pain medication. Notify surgeon with any signs or symptoms of infection, increased pain, or not tolerating diet. Discharge Disposition: HOME WITH HOME HEALTH SERVICES
== END 2016-05-30 16:37 | disposition home health service (06) | DRG 330 ==
LOC: 2ORWHC 05-25 10:34 → 3SUR 05-25 14:18
PROVIDERS: ADMIT Surgery; ATTEND Surgery
PROC: 0WQF0ZZ Repair Abdominal Wall, Open Approach (ICD-10-PCS; 2016-05-25)
PROC: 0DNW0ZZ Release Peritoneum, Open Approach (ICD-10-PCS; 2016-05-25)
PROC: 0DQE0ZZ Repair Large Intestine, Open Approach (ICD-10-PCS; principal; 2016-05-25 12:35)
DX: Z43.3 Encounter for attention to colostomy (principal); I13.0 Hypertensive heart and chronic kidney disease with heart failure and stage 1 through stage 4 chronic kidney disease, or unspecified chronic kidney disease; I42.9 Cardiomyopathy, unspecified; I50.22 Chronic systolic (congestive) heart failure; K57.92 Diverticulitis of intestine, part unspecified, without perforation or abscess without bleeding; E78.5 Hyperlipidemia, unspecified; F41.9 Anxiety disorder, unspecified; G25.81 Restless legs syndrome; G47.33 Obstructive sleep apnea (adult) (pediatric); I25.10 Atherosclerotic heart disease of native coronary artery without angina pectoris; I25.2 Old myocardial infarction; J44.9 Chronic obstructive pulmonary disease, unspecified; K21.9 Gastro-esophageal reflux disease without esophagitis; K43.5 Parastomal hernia without obstruction or gangrene; M19.90 Unspecified osteoarthritis, unspecified site; N18.3 Chronic kidney disease, stage 3 (moderate); K57.90 Diverticulosis of intestine, part unspecified, without perforation or abscess without bleeding; R35.0 Frequency of micturition; K66.0 Peritoneal adhesions (postprocedural) (postinfection); J45.30 Mild persistent asthma, uncomplicated; Z87.891 Personal history of nicotine dependence; Z95.1 Presence of aortocoronary bypass graft; Z79.02 Long term (current) use of antithrombotics/antiplatelets; Z79.899 Other long term (current) drug therapy; Z88.5 Allergy status to narcotic agent
CPT/HCPCS: 80048; 80053; 85025; 88304

== ENCOUNTER → 2017-03-01 | Outpatient (CLI) | payer MEDICARE ==
[2017-03-01 10:25] LABS: Basophils # (A) 0.1 k/uL (0-0.2); Basophils % (A) 1 %; CH 29.7; CHCM 32.4; Eosinophils # (A) 0.4 k/uL (0-0.7); Eosinophils % (A) 5 %; HCT 39.4 % (39.0-53.0); HDW 2.96; HGB 13.5 gm/dL (13.0-17.5); Luc # (Auto) 0.14; Luc % (Auto) 2; Lymphocytes # (A) 2.2 k/uL (1.0-4.8); Lymphocytes % (A) 29 %; MCH 31.5 pg (25.0-35.0); MCHC 34.2 g/dL (31.0-37.0); MCV 92.2 fL (80.0-100.0); Mean Platelet Volume 7.6; Monocytes # (A) 0.4 k/uL (0-1.0); Monocytes % (A) 5 %; Neutrophils # (A) 4.5 k/uL (1.3-7.7); Neutrophils % (A) 58 %; RBC 4.27 m/uL (4.30-5.90); RDW 13.8 % (11.5-15.5); WBC 7.7 k/uL (3.8-10.6); WBC (Perox) 8.09
== END | disposition home or self-care (01) ==
LOC: LABWHC1 09:31
PROVIDERS: ATTEND Surgery
DX: Z01.818 Encounter for other preprocedural examination (principal); K43.2 Incisional hernia without obstruction or gangrene; D64.9 Anemia, unspecified; F17.200 Nicotine dependence, unspecified, uncomplicated
CPT/HCPCS: 36415; 85025; 86850; 86900; 86901

== ENCOUNTER 2017-03-05 06:09 | Day surgery (SDC) | payer MEDICARE ==
[2017-02-28 11:14] VITALS: BMI 23.3
[~2017-03-05 06:09] MED LIST: DEXAMETHASONE SOD PHOSPHATE 10 MG/ML 1 ML VIAL IV ONE; HEPARIN SODIUM,PORCINE 5,000 UNIT/ML 1 ML VIAL SQ ONE; MIDAZOLAM 2 MG/2 ML VIAL IV PRN; ONDANSETRON 4 MG/2 ML VIAL IVP ONE; ceFAZolin 2 GM in SODIUM CHLORIDE 0.9% 100 ML IVPB ONE
[2017-03-05] MEDS ORDERED: LIDOCAINE 1% 20 ML VIAL (10MG/ML) FOR IV START INTRADERMA ONE (07:07)
[2017-03-05] MEDS: LACTATED RINGERS 1,000 ML IV SCH (07:11)
[2017-03-05] MEDS ORDERED: BUPIVACAINE-EPI 0.5%-1:200,000 10 ML VIAL SQ ONE (07:41)
--- NOTE | 2017-03-05 08:02 | P.GSHP ---
History of Present Illness H&P Date: 03/05/17 Chief Complaint: Incisional hernia Cyst 76-year-old male who presents today for laparoscopic robotic system repair of incisional hernia. Patient has a history of Marci procedure procedure and then reversal of Marci. He is also incisional hernia along his midline incision. Patient is aware the risk of conversion to the open procedure due to adhesions. Past Medical History Past Medical History: Hyperlipidemia, Hypertension, Myocardial Infarction ([place]) Additional Past Medical History / Comment(s): DIVERTICULITIS, restless leg syndrome, Last Myocardial Infarction Date:: 2004 History of Any Multi-Drug Resistant Organisms: None Reported Past Surgical History: Bowel Resection, Coronary Bypass/CABG, Heart Catheterization Additional Past Surgical History / Comment(s): CABG 2004-3 vessel, heart cath 2004, colostomy/later reversal, Past Anesthesia/Blood Transfusion Reactions: No Reported Reaction Past Psychological History: Anxiety Additional Psychological History / Comment(s): . Smoking Status: Former smoker Past Alcohol Use History: None Reported Additional Past Alcohol Use History / Comment(s): quit smoking 3-4 yrs ago, started smoking age 17, 1/2 PPD Past Drug Use History: None Reported - Past Family History Mother Family Medical History: Cancer Additional Family Medical History / Comment(s): brain Father Family Medical History: No Reported History Additional Family Medical History / Comment(s): FROM OLD AGE AT 89 Medications and Allergies Home Medications Medication Instructions Recorded Confirmed Type Atorvastatin Calcium [Lipitor] 40 mg PO HS 12/30/14 02/28/17 History Metoprolol Tartrate 25 mg PO BID 12/30/14 02/28/17 History ALPRAZolam [Xanax] 0.25 mg PO TID #21 tab 11/14/15 02/28/17 Rx Clopidogrel [Plavix] 75 mg PO DAILY 12/22/15 03/05/17 History Isosorbide Mononitrate ER [Imdur] 30 mg PO QAM 12/22/15 02/28/17 History hydrALAZINE HCL [Apresoline] 50 mg PO TID 12/22/15 02/28/17 History HYDROcodone/APAP 7.5-325MG [[place] 1 each PO QID PRN #28 tab 05/29/16 02/28/17 Rx 7.5-325] Allergies Allergy/AdvReac Type Severity Reaction Status Date / Time morphine AdvReac Wheezing Verified 03/05/17 06:50 Surgical - Exam Vital Signs Temp Pulse Resp BP Pulse Ox 97.8 F 52 L 18 119/61 100 03/05/17 06:59 03/05/17 06:59 03/05/17 06:59 03/05/17 06:59 03/05/17 06:59 - General well developed, no distress - Eyes PERRL - ENT normal pinna - Neck no masses - Respiratory normal expansion - Cardiovascular Rhythm: regular - Abdomen Midline incisional hernia Abdomen: soft, non tender Assessment and Plan Plan: Internal hernia. We'll perform laparoscopic robotic assistance repair.
[2017-03-05] MEDS ORDERED: ROCURONIUM BROMIDE 10 MG/ML 10 ML VIAL IV ONE (08:15)
[2017-03-05] MEDS ORDERED: MIDAZOLAM 2 MG/2 ML VIAL ONE (08:15)
[2017-03-05] MEDS ORDERED: GLYCOPYRROLATE 0.2 MG/ML 2 ML VIAL ONE (08:15)
[2017-03-05] MEDS ORDERED: NEOSTIGMINE 1 MG/ML 10 ML VIAL ONE (08:15)
[2017-03-05] MEDS ORDERED: fentaNYL (PF) 50 MCG/ML 2 ML AMP ONE (08:15)
[2017-03-05] MEDS ORDERED: HYDROmorphone (PF) 1 MG/ML ONE (08:15)
[2017-03-05] MEDS ORDERED: LIDOCAINE 1% INJ 10MG/ML (20 ML MDV) ONE (08:15)
[2017-03-05] MEDS ORDERED: SUCCINYLCHOLINE CHLORIDE 100 MG/5 ML SYR IV ONE (08:15)
[2017-03-05] MEDS ORDERED: PROPOFOL 10 MG/ML 20 ML VIAL IV ONE (08:15)
[2017-03-05] MEDS ORDERED: SODIUM CHLORIDE 0.9% 500 ML IV ONE ×2 (10:19)
[2017-03-05] MEDS ORDERED: ONDANSETRON 4 MG/2 ML VIAL IVP PRN (10:59)
[2017-03-05] MEDS ORDERED: ACETAMINOPHEN TAB 325 MG TAB PO PRN (10:59)
[2017-03-05] MEDS ORDERED: HYDROmorphone 0.5 MG/0.5 ML SYRINGE IVP PRN (10:59)
[2017-03-05] MEDS ORDERED: NALOXONE 0.4 MG/ML 1 ML VIAL IV PRN (10:59)
[2017-03-05] MEDS ORDERED: METOCLOPRAMIDE 5 MG/ML 2 ML VIAL IVP PRN (10:59)
[2017-03-05] MEDS ORDERED: HYDROcodone/APAP 5-325MG 1 EACH TAB PO PRN (10:59)
[2017-03-05] MEDS ORDERED: LACTATED RINGERS 1,000 ML IV ONE ×2 (10:59→11:15)
[2017-03-05] MEDS: HYDROmorphone 0.5 MG/0.5 ML SYRINGE IVP PRN ×4 (11:04→11:43)
[2017-03-05] MEDS ORDERED: hydrALAZINE HCL 20 MG/ML 1 ML VIAL IVP ONE (11:14)
--- NOTE | 2017-03-05 11:21 | P.OP ---
Date of Procedure: 03/05/17 Preoperative Diagnosis: Incisional hernia Postoperative Diagnosis: Incisional hernia Adhesions Procedure(s) Performed: Laparoscopic lysis of adhesions Laparoscopic robotic-assisted repair of incisional hernia Anesthesia: ROJAS Surgeon: Luke Aguillon Estimated Blood Loss (ml): 10 Pathology: none sent Condition: stable Disposition: PACU Description of Procedure: The patient's placed on the operating table in the supine position. He received general anesthesia. His abdomen was prepped and draped usual sterile fashion. A Schnidt in the midline incision which contained incisional hernia. The skin incision sites were anesthetized 1% local Xylocaine. Using a 5 mm optical trocar under direct visualization panel cavity is entered in the right lateral position. The laparoscope was placed back the pleural cavity. There were adhesions noted along the midline. Next a 8 mm robotic trochars placed in the right upper quadrant and another 8 mm robotic trochars placed the right lower quadrant. Using laparoscopic Metzenbaum scissors the adhesions were lysed. The original 5 mm trocar was exchanged for a 12 mm trocar. The robot was then docked to the patient. Further lyse adhesions were performed using the da Rex robot using hook cautery and the monopolar fenestrator grasper. After the adhesions were lysed. The fascial defect was reapproximated using the #1 status fixed suture. And then a ventral light ST mesh was secured over top the repair using a combination of 20 the lock suture. The patient was then undocked the robot. The needles were retrieved. The secure strep tacker was used to secure the mesh. The trochars withdrawn. The skin was closed with 3-0 Monocryl suture. Dermabond was applied. Patient top she will well and was sent to recovery in stable condition.
[2017-03-05] MEDS ORDERED: METOPROLOL TARTRATE 5 MG/5 ML VIAL IVP ONE (11:43)
[2017-03-05] MEDS: KETOROLAC 30 MG/ML 1 ML VIAL IVP SCH ×3 (12:20→23:18)
[2017-03-05] MEDS ORDERED: HYDROcodone/APAP 7.5-325MG 1 EACH TAB PO PRN (13:52)
--- NOTE | 2017-03-05 14:06 | P.HPIM ---
History of Present Illness H&P Date: 03/05/17 Chief Complaint: internal hernia This is a 76-year-old male known to our services. He is Being seen examined and evaluated today, who presents status post laparoscopic robotic system repair of incisional hernia. Patient has a history of Marci procedure procedure and then reversal of Marci. He is also incisional hernia along his midline incision. The patient does not normally wear oxygen at home. He does wear BiPAP at home, history of obstructive sleep apnea. Patient also has a history of COPD, chronic persistent asthma, hypertension, hypertensive cardiovascular disease, CAD, history of CABG, congestive heart failure, chronic renal failure and restless leg syndrome. Patient is seen resting up in bed on 2 L of supplemental oxygen, she was noted to have desaturations postsurgical requiring administration of oxygen. He does have some exertional shortness of breath, does have some diffuse abdominal discomfort post surgery. Abdominal binder contact dressing is clean dry and intact. He is afebrile, no further complaints. Significant other is at bedside and updated and plan of care, all questions answered. Review of Systems 14 point review of system was completed and is negative outside above in the HPI. Past Medical History Past Medical History: COPD, Hyperlipidemia, Hypertension, Myocardial Infarction ([place]) Additional Past Medical History / Comment(s): DIVERTICULITIS, restless leg syndrome, Last Myocardial Infarction Date:: 2004 History of Any Multi-Drug Resistant Organisms: None Reported Past Surgical History: Bowel Resection, Coronary Bypass/CABG, Heart Catheterization Additional Past Surgical History / Comment(s): CABG 2004-3 vessel, heart cath 2004, colostomy/later reversal, Past Anesthesia/Blood Transfusion Reactions: No Reported Reaction Past Psychological History: Anxiety Additional Psychological History / Comment(s): . Smoking Status: Former smoker Past Alcohol Use History: None Reported Additional Past Alcohol Use History / Comment(s): quit smoking 3-4 yrs ago, started smoking age 17, 1/2 PPD Past Drug Use History: None Reported - Past Family History Mother Family Medical History: Cancer Additional Family Medical History / Comment(s): brain Father Family Medical History: No Reported History Additional Family Medical History / Comment(s): FROM OLD AGE AT 89 Medications and Allergies Home Medications Medication Instructions Recorded Confirmed Type Atorvastatin Calcium [Lipitor] 40 mg PO HS 12/30/14 02/28/17 History Metoprolol Tartrate 25 mg PO BID 12/30/14 02/28/17 History ALPRAZolam [Xanax] 0.25 mg PO TID #21 tab 11/14/15 02/28/17 Rx Clopidogrel [Plavix] 75 mg PO DAILY 12/22/15 03/05/17 History Isosorbide Mononitrate ER [Imdur] 30 mg PO QAM 12/22/15 02/28/17 History hydrALAZINE HCL [Apresoline] 50 mg PO TID 12/22/15 02/28/17 History HYDROcodone/APAP 7.5-325MG [[place] 1 each PO QID PRN #28 tab 05/29/16 02/28/17 Rx 7.5-325] Allergies Allergy/AdvReac Type Severity Reaction Status Date / Time morphine AdvReac Wheezing Verified 03/05/17 06:50 Physical Exam Vitals: Vital Signs Temp Pulse Resp BP Pulse Ox 03/05/17 11:52 71 16 145/74 99 03/05/17 11:44 72 16 165/74 100 03/05/17 11:30 82 16 175/70 100 03/05/17 11:11 69 16 186/76 100 03/05/17 10:59 67 16 183/73 100 03/05/17 10:48 97.9 F 73 16 168/77 100 03/05/17 06:59 97.8 F 52 L 18 119/61 100 Intake and Output 03/04/17 03/05/17 03/05/17 22:59 06:59 14:59 Intake Total 1600 Output Total 20 Balance 1580 Intake: IV 1600 Output: Estimated Blood Loss 20 GENERAL EXAM: Alert, active, comfortable in no apparent distress. HEAD: Normocephalic. EYES: Normal reaction of pupils, equal size. NOSE: Clear with pink turbinates. THROAT: No erythema or exudates. NECK: No masses, no JVD. CHEST: No chest wall deformity. LUNGS: Equal air entry with no crackles, wheeze, rhonchi or dullness. Bases diminished CVS: S1 and S2 normal with no audible mumurs, regular rhythm. ABDOMEN: No hepatosplenomegaly, hypoactive bowel sounds, no guarding or rigidity. Abdominal binder in place dressing looks clean dry and intact. EXTREMITIES: No edema noted, pedal pulses palpable. SKIN: No rashes CENTRAL NERVOUS SYSTEM: No focal deficits, tone is normal in all 4 extremities. Thrombosis Risk Factor Assmnt - DVT/VTE Prophylaxis DVT/VTE Prophylaxis: Pharmacologic Prophylaxis ordered - Choose All That Apply Each Factor Represents 1 point: Acute ID, Hx of IBD Each Risk Factor Represents 2 Points: Laparoscopic surgery, Major surgery Each Risk Factor Represents 3 Points: Age 75 years or older Thrombosis Risk Factor Assessment Total Risk Factor Score: 9 Thrombosis Risk Factor Assessment Level: High Risk Assessment and Plan Plan: Assessment Status post laparoscopic robotic repair of incisional hernia Acute hypoxic respiratory failure requiring supplemental oxygen post surgical procedure History of chronic obstructive pulmonary disease Hypertension, hypertensive cardiovascular disease Coronary artery disease History of coronary artery bypass grafting Congestive heart failure, systolic Restless leg syndrome Obstructive sleep apnea Plan Medications have been reviewed and will be continued as ordered. Home medications have been reviewed and restarted with the option of the Plavix, will defer to surgical services when they would like that restarted. Postsurgical instructions per surgeon. May use home BiPAP. Continue with pulmonary hygiene, coughing and deep breathing exercises, and supportive care. Supplemental oxygen to maintain oxygen saturations of 92% or better.. GI and DVT prophylaxis. We will continue to monitor labs/results and adjust treatment as necessary. Further recommendations pending. I performed an examination of the patient and discussed their management with the nurse practitioner. I have reviewed the nurse practitioner's note and agree with the documented findings and plan of care.
[2017-03-05] MEDS: ALPRAZolam 0.25 MG TAB PO SCH ×2 (15:07→21:27)
[2017-03-05] MEDS: hydrALAZINE HCL 50 MG TAB PO SCH ×2 (15:15→21:27)
[2017-03-05] MEDS ORDERED: ATORVASTATIN 40 MG TAB PO SCH (21:00)
[2017-03-05] MEDS: METOPROLOL TARTRATE 25 MG TAB PO SCH (21:27)
[2017-03-06] MEDS: KETOROLAC 30 MG/ML 1 ML VIAL IVP SCH ×2 (06:07→12:09)
[2017-03-06] MEDS: LACTATED RINGERS 1,000 ML IV SCH (06:09)
[2017-03-06 07:23] VITALS: BP 134/62; PULSE 56; RESP 16; TEMP 97.9
[2017-03-06] MEDS: METOPROLOL TARTRATE 25 MG TAB PO SCH (07:44)
[2017-03-06] MEDS: hydrALAZINE HCL 50 MG TAB PO SCH (07:44)
[2017-03-06] MEDS: ALPRAZolam 0.25 MG TAB PO SCH (07:44)
[2017-03-06] MEDS ORDERED: IPRATROPIUM-ALBUTEROL 3 ML NEB INHALATION SCH (08:00)
[2017-03-06] MEDS ORDERED: BUDESONIDE 0.5 MG/2 ML NEBU INHALATION SCH (08:00)
[2017-03-06] MEDS ORDERED: ENOXAPARIN 40 MG/0.4 ML SYRINGE SQ SCH (09:00)
[2017-03-06] MEDS ORDERED: ISOSORBIDE MONONITRATE ER 30 MG TAB.ER.24H PO SCH (09:00)
--- NOTE | 2017-03-06 09:22 | XR ---
EXAMINATION TYPE: XR chest 2V DATE OF EXAM: 03/06/2017 COMPARISON: 01/17/2016 INDICATION: Short of breath TECHNIQUE: Frontal and lateral views of the chest are obtained. FINDINGS: The heart size is normal. The pulmonary vasculature is normal. There is a left lower lobe infiltrate. Minimal elevation left diaphragm may be present. Posterior inf iltrate is on the lateral projection. Sternotomy wires from previous CABG are evident.. IMPRESSION: 1. Left lower lobe infiltrate suspicious for pneumonia.
--- NOTE | 2017-03-06 09:23 | P.PN ---
Subjective Progress Note Date: 03/06/17 Principal diagnosis: Incisional hernia, chronic hypoxic respiratory failure, severe COPD, severe degree of restless leg syndrome, obstructive sleep apnea on CPAP, history of coronary artery disease with history of CABG Patient status post a incisional hernia repair doing well breathing comfortably denies any chest pain cough chest x-ray just has been performed which I reviewed it and a small left lower lobe subsegmental atelectasis present patient is breathing comfortably denies any chest pain, he is tolerating by mouth fairly well Objective - Vital Signs Vital signs: Vital Signs Temp 97.9 F 03/06/17 07:00 Pulse 56 L 03/06/17 07:00 Resp 16 03/06/17 07:00 BP 134/62 03/06/17 07:00 Pulse Ox 97 03/06/17 08:27 Intake & Output 03/05/17 03/06/17 03/06/17 18:59 06:59 18:59 Intake Total 1600 100 Output Total 240 300 Balance 1360 -200 Weight 65.771 kg 65.771 kg Intake: IV 1600 Oral 100 Output: Urine 220 300 Estimated Blood Loss 20 Other: Voiding Method Urinal Urinal # Voids 0 - Exam GENERAL EXAM: Alert, active, comfortable in no apparent distress. HEAD: Normocephalic. EYES: Normal reaction of pupils, equal size. NOSE: Clear with pink turbinates. THROAT: No erythema or exudates. NECK: No masses, no JVD. CHEST: No chest wall deformity. LUNGS: Equal air entry with no crackles, wheeze, rhonchi or dullness. Bases diminished CVS: S1 and S2 normal with no audible mumurs, regular rhythm. ABDOMEN: No hepatosplenomegaly, hypoactive bowel sounds, no guarding or rigidity. Abdominal binder in place dressing looks clean dry and intact. EXTREMITIES: No edema noted, pedal pulses palpable. SKIN: No rashes CENTRAL NERVOUS SYSTEM: No focal deficits, tone is normal in all 4 extremities. Assessment and Plan Assessment: Incisional hernia, Status post laparoscopic robotic repair of incisional hernia Acute on chronic hypoxic respiratory failure hypoxic respiratory failure requiring supplemental oxygen post surgical procedure, basilar subsegmental atelectasis and multifactorial process History of chronic obstructive pulmonary disease Obstructive sleep apnea syndrome also contributing to hypoxia Hypertension, hypertensive cardiovascular disease Coronary artery disease History of coronary artery bypass grafting Congestive heart failure, systolic Restless leg syndrome Plan Continue deep breathing exercises incentive spirometry increase activity as tolerated, continue current management plan from pulmonary critical care standpoint patient can be discharged home with follow-up in outpatient setting in the meantime Medications have been reviewed and will be continued as ordered. Home medications have been reviewed and restarted with the option of the Plavix, will defer to surgical services when they would like that restarted. Postsurgical instructions per surgeon. May use home BiPAP. Continue with pulmonary hygiene, coughing and deep breathing exercises, and supportive care. Supplemental oxygen to maintain oxygen saturations of 92% or better.. GI and DVT prophylaxis. We will continue to monitor labs/results and adjust treatment as necessary. Further recommendations pending. Time with Patient: Greater than 30
--- NOTE | 2017-03-06 12:02 | P.PN ---
Subjective Progress Note Date: 03/06/17 76-year-old male seen and examined at bedside patient states he's been up to the bathroom ambulating without any difficulty. Denies any chest pain or shortness of breath. Patient does report having surgical pain pain medication has been effective for pain control. Laparoscopic robotic-assisted repair of incisional hernia done on March 05 Objective - Vital Signs Vital signs: Vital Signs Temp 97.9 F 03/06/17 07:00 Pulse 56 L 03/06/17 07:00 Resp 16 03/06/17 07:00 BP 134/62 03/06/17 07:00 Pulse Ox 97 03/06/17 08:27 Intake & Output 03/05/17 03/06/17 03/06/17 18:59 06:59 18:59 Intake Total 1600 100 Output Total 240 300 Balance 1360 -200 Weight 65.771 kg 65.771 kg Intake: IV 1600 Oral 100 Output: Urine 220 300 Estimated Blood Loss 20 Other: Voiding Method Urinal Urinal # Voids 0 - Exam Physical exam 76-year-old pleasant cooperative sitting up in bed tolerating diet Lungs essentially clear with adequate air movement no wheezing rales or rhonchi no cough noted Heart S1-S2 audible regular denying chest pain Abdomen surgical incision sites no evidence of redness soft not distended surgical tenderness appropriate bowel tones present states not passing any gas no stool urinating no difficulty abdominal binder in place Extremities no edema noted Venodyne's on bilateral lower extremities Assessment and Plan Assessment: Impression Status post laparoscopic robotic-assisted repair of an incisional hernia Acute hypoxic respiratory failure requiring supplemental oxygen post surgical procedure Chronic obstructive pulmonary disease stable no evidence of an exacerbation Known coronary artery disease with prior coronary artery bypass grafting Obstructive sleep apnea with BiPAP support at home Chronic systolic heart failure with no evidence of acute exacerbation Plan Continue postop surgical care as ordered Will restart Plavix when appropriate Pain control Resume home meds as appropriate May use BiPAP support from home The above impression and plan of care have been discussed and directed by signing physician. Maribel Matias nurse practitioner acting as scribe for signing physician.
--- NOTE | 2017-03-06 14:03 | P.DS ---
Providers Expected date of discharge: 03/06/17 Attending physician: Luke Feliciano Consults: 03/05/17 10:59 Consult Physician Routine Consulting Provider: Karthikeyan Mendiola Consult Reason/Comments: Medical management Do you want consulting provider notified?: Yes 03/06/17 10:01 Consult Physician Routine Consulting Provider: Gerardo Quiros Consult Reason/Comments: medical mangae Do you want consulting provider notified?: Yes Primary care physician: Gerardo [facility] Course: 76-year-old male who presented on the day of admission to undergo an elective laparoscopically robotic repair of an incisional hernia done on March 05. No postop events patient was up ambulating on the day of discharge pain medication effective for pain contro l patient was felt to be hemodynamically stable appropriate to proceed with a discharge Patient has a past medical history significant for perforated diverticulitis who underwent a reversal of the colostomy and repair of a parastomal hernia done on May [id number] there were no postop events Impression discharge diagnosis History of reversal of colostomy with repair of a parastomal hernia done on May 2016 Status post laparoscopic robotic-assisted repair of an incisional hernia done March 05 2017 Acute hypoxic respiratory failure requiring supplemental oxygen post surgical procedure Chronic obstructive pulmonary disease stable no evidence of an exacerbation Known coronary artery disease with prior coronary artery bypass grafting Obstructive sleep apnea with BiPAP support at home Chronic systolic heart failure with no evidence of acute exacerbation The above impression and plan of care have been discussed and directed by signing physician. Maribel Matias nurse practitioner acting as scribe for signing physician. Plan - Discharge Summary New Discharge Prescriptions: New Ibuprofen [Motrin] 400 mg PO Q6H #20 tab Continue Atorvastatin Calcium [Lipitor] 40 mg PO HS Metoprolol Tartrate 25 mg PO BID ALPRAZolam [Xanax] 0.25 mg PO TID #21 tab hydrALAZINE HCL [Apresoline] 50 mg PO TID Isosorbide Mononitrate ER [Imdur] 30 mg PO QAM Clopidogrel [Plavix] 75 mg PO DAILY HYDROcodone/APAP 7.5-325MG [[place] 7.5-325] 1 each PO QID PRN #28 tab PRN Reason: Pain Discharge Medication List Atorvastatin Calcium [Lipitor] 40 mg PO HS 12/30/14 [History] Metoprolol Tartrate 25 mg PO BID 12/30/14 [History] ALPRAZolam [Xanax] 0.25 mg PO TID #21 tab 11/14/15 [Rx] Clopidogrel [Plavix] 75 mg PO DAILY 12/22/15 [History] Isosorbide Mononitrate ER [Imdur] 30 mg PO QAM 12/22/15 [History] hydrALAZINE HCL [Apresoline] 50 mg PO TID 12/22/15 [History] HYDROcodone/APAP 7.5-325MG [[place] 7.5-325] 1 each PO QID PRN #28 tab 05/29/16 [ Rx] Ibuprofen [Motrin] 400 mg PO Q6H #20 tab 03/06/17 [Rx] Follow up Appointment(s)/Referral(s): Karthikeyan Mendiola MD [STAFF PHYSICIAN] - 1 Week Luke Feliciano MD [STAFF PHYSICIAN] - 03/11/17 Gerardo Quiros MD [Primary Care Provider] - 1 Week Patient Instructions/Handouts: Laparoscopic Herniorrhaphy (DC) Activity/Diet/Wound Care/Special Instructions: Cardiac diet. Restart the Plavix after seen by Dr. Mendiola in the office No lifting over 4 pounds until seen with Dr. feliciano follow-up visit May shower daily No tub bath No driving while taking pain medication Notify surgeon with any signs or symptoms of infection increased pain or not tolerating a diet Discharge Disposition: HOME SELF-CARE
--- NOTE | 2017-03-06 15:28 | CONS ---
CONSULTATION CHIEF COMPLAINT: 76-year-old white male, status post laparoscopic robotic assisted repair of incisional hernia. He had Marci pouch procedure, reversal of Marci. He wears BiPAP at home for sleep apnea. History of COPD, chronic persistent asthma, hypertension, hypertensive cardiovascular disease, coronary artery disease, history of CABG, congestive heart failure, chronic renal failure, restless legs syndrome. He is on 2 L oxygen here at this time. He is wearing an abdominal binder. Surgery site is good. Requesting pain medicines to be sent home today. REVIEW OF SYSTEMS: 14 point review of systems negative. PAST MEDICAL HISTORY: COPD, dyslipidemia, hypertension, myocardial infarction, diverticulitis, restless legs syndrome, coronary artery disease, heart catheterization, CABG in 2004, history of anxiety, former smoker. He has been 40 years to his . Quit smoking 3-4 years ago. FAMILY HISTORY: Mother with cancer of the brain, father of old age. HOME MEDICINES: 1. Lipitor 40 daily. 2. Metoprolol 25 b.i.d. 3. Xanax 0.25 t.i.d. 4. Plavix 75 mg daily. 5. Imdur 30 mg daily. 6. Apresoline 50 mg t.i.d. 7. Sanford 7.5 every q.i.d. ALLERGIES: MORPHINE. PHYSICAL EXAMINATION: Vital signs: Blood pressure 140 to 170s over 70s, respiratory 16-18, pulse 70s to 80s. Temp 97.8. HEENT: Normocephalic, atraumatic. Head normal. Ophthalmological: Pupils equal, round, reactive to light and accommodation. ENT: External ear canals within normal limits. Chest is clear. Lungs show diminished breath sounds. No rales or rhonchi. Abdomen is soft. No hepatosplenomegaly. Extremities: No cyanosis, clubbing, or edema. Skin no rash excoriations. METER CHANGES RECORDS CLERK is clear. ASSESSMENT: 1. Status post robotic repair of incisional hernia. 2. Chronic obstructive pulmonary disease exacerbation. 3. Status post surgery of acute hypoxemic respiratory failure. Hypertensive cardiovascular disease. 4. Coronary artery disease. 5. Restless leg syndrome. 6. Sleep apnea. RECOMMENDATIONS: Continue with BiPAP at home. Continue home medications. Plavix and aspirin and possibly some Motrin for going home. Follow up in office in a week or 2. MMODL / IJN: [id number] /
== END 2017-03-06 14:22 | disposition home or self-care (01) ==
LOC: OR 06:09 → 4MS4W 10:38 → OR 03-06 14:22
PROVIDERS: ATTEND Surgery
DX: K43.2 Incisional hernia without obstruction or gangrene (principal); K66.0 Peritoneal adhesions (postprocedural) (postinfection); J96.01 Acute respiratory failure with hypoxia; G47.33 Obstructive sleep apnea (adult) (pediatric); J44.9 Chronic obstructive pulmonary disease, unspecified; J45.998 Other asthma; G25.81 Restless legs syndrome; I50.22 Chronic systolic (congestive) heart failure; I25.10 Atherosclerotic heart disease of native coronary artery without angina pectoris; I13.0 Hypertensive heart and chronic kidney disease with heart failure and stage 1 through stage 4 chronic kidney disease, or unspecified chronic kidney disease; N18.9 Chronic kidney disease, unspecified; Z95.1 Presence of aortocoronary bypass graft; Z99.89 Dependence on other enabling machines and devices; I25.2 Old myocardial infarction; Z87.891 Personal history of nicotine dependence; Z79.02 Long term (current) use of antithrombotics/antiplatelets; Z79.899 Other long term (current) drug therapy; Z88.5 Allergy status to narcotic agent; Z98.890 Other specified postprocedural states
CPT/HCPCS: 49654; 94760; 71020; C1781; J2250; J0360; J1644; J1100; J2710; J0690; J2405; J2001; J1650; J3010; J1885 ×2; J1170 ×2; J0330; J2704; 86850; 86900; 86901

== ENCOUNTER → 2017-04-04 | Outpatient (CLI) | payer MEDICARE ==
--- NOTE | 2017-04-04 16:04 | CT ---
EXAMINATION TYPE: CT abdomen pelvis wo con DATE OF EXAM: 04/04/2017 COMPARISON: NONE INDICATION: Patient complains of RLQ pain post hernia repair 1 month ago. DLP: 270.5 mGycm, Automated exposure control for dose reduction was used. CONTRAST: 0 mL of Omnipaque 300. Study performed with Oral Contrast TECHNIQUE: Axial images were obtained from above the diaphragm to the pubic rami in the axial plane a t 5 mm thick sections. Reconstructed images are reviewed on the computer in the coronal plane. FINDINGS: Limited CT sections are obtained the lung bases. There is some mild atelectasis at the lateral left lung base. There is a 0.5 cm nodule in the posterior lateral periphery left lung base. Series 4 image 7. This head the appearance of a granuloma in the previous examination. CT ABDOMEN: Liver: Normal Spleen: Calcified granuloma are within the spleen. Pancreas: Normal Adrenal glands: The adrenal glands are normal. Gallbladder: Cholelithiasis may be present. Kidneys: No masses are evident. No hydronephrosis is present. A mid left cortical renal cyst may be present. Delayed images were obtained through the kidneys, which remain unremarkable. Aorta: Vascular calcification is within the aorta. There is an AP diameter fusiform prominence withi n the mid abdominal aorta measuring 3.1 cm. This was present previously. This terminates above the bi furcation. Inferior vena cava: Normal. CT PELVIS: Loops of bowel are incompletely distended with oral contrast. No dilated small bowel loops are eviden t. Colon contains contrast. Fecal debris is in the distal colon. There is a low-density collection extending from the umbilicus into the left abdomen and in the intr aperitoneal region along the anterior wall. This is a low-density extending towards the prior ileosto my. Seroma could be considered. Omental caking is considered less likely Appendix: Not identified Urinary bladder: There is incomplete distention. Wall thickening is not excluded. Genitourinary structures: Prostate is prominent Osseous structures: Lytic areas within the medial iliac wings bilaterally are not excluded. Facet hyp ertrophy is present. IMPRESSIONS: 1. There may be a peritoneal wall seroma along the intraperitoneal side extending from the umbilicus towards the prior ostomy site. 2. Fusiform prominence of the abdominal aorta. 3. Small nodular density posterior lateral left lung base stable from comparison 4. Prominent prostate. 5. Cholelithiasis
== END | disposition home or self-care (01) ==
LOC: RADCTMAIN 13:05
PROVIDERS: ATTEND Family Medicine
DX: K80.20 Calculus of gallbladder without cholecystitis without obstruction (principal)
CPT/HCPCS: 74176

== ENCOUNTER → 2017-05-23 | Outpatient (CLI) | payer MEDICARE ==
--- NOTE | 2017-05-23 12:46 | CT ---
EXAMINATION TYPE: CT abdomen wo con DATE OF EXAM: 05/23/2017 COMPARISON: 04/04/2017 and 12/30/2015 HISTORY: RUQ pain CT DLP: 224.70 mGycm Automated exposure control for dose reduction was used. TECHNIQUE: Helical acquisition of images was performed from the lung bases through the top of iliac crest to include entire abdomen. CONTRAST: Performed without Oral Contrast and without IV contrast. This limits evaluation of both the hollow an d solid viscera. FINDINGS: LUNG BASES: Right infrahilar calcified granuloma and left parenchymal lower lobe calcified granuloma are noted. LIVER/GB: Redemonstration of dependent cholelithiasis. The liver has an unremarkable unenhanced morph ology. PANCREAS: No ductal dilatation. SPLEEN: Benign punctate parenchymal granulomas. ADRENALS: No thickening or discrete nodularity. KIDNEYS: No nephrolithiasis. Slightly high density 1.1 cm exophytic right superior pole renal lesion is seen on series 3 image 27. BOWEL: Postsurgical changes are seen of the gastroesophageal junction. Numerous scattered colonic di verticula are seen without pericolonic fat stranding. Small bowel feces sign is seen within the left upper quadrant relating to increased transit time/ileus. No dilated bowel is seen. LYMPH NODES: No significant abnormality is appreciated. OSSEOUS STRUCTURES: Again iliac and sacral lytic lesions are appreciated, similar to the prior of . Moderate multilevel degenerative changes of the visualized thoracic spine are present. FREE AIR: No free air is visualized. OTHER: There is interval decrease in size of the postsurgical seroma posterior to the rectus abdomina l musculature previously measuring up to 1.5 cm in thickness and currently measuring up to 9 mm in th ickness. A fat-containing abdominal wall hernia is seen left para midline likely at the site of prior ostomy as there is increased density in the surrounding subcutaneous soft tissues. Wide neck. Umbilical mesenteric fat and small bowel containing ventral abdominal hernia has a 6.4 cm neck. No current evidence of bowel incarceration. Prostate gland is again enlarged measuring 5.2 cm i n transverse dimension. VASCULATURE: There is redemonstration of ectasia of the infrarenal abdominal aorta measuring up to 3. 0 x 3.0 cm. This does not yet meet criteria for abdominal aortic aneurysm. IMPRESSION: 1. DECREASE IN SIZE IN THE INTRA-ABDOMINAL SEROMA POSTERIOR TO THE RECTUS ABDOMINAL MUSCULATURE. 2. MULTIPLE PELVIC LYTIC LESIONS. CONSIDERATIONS ARE FOR METASTASIS SUCH LUNG CARCINOMA OR RENAL C ELL CARCINOMA OR OTHER ETIOLOGY SUCH MULTIPLE MYELOMA. 3. REDEMONSTRATION OF A MESENTERIC FAT AND SMALL BOWEL CONTAINING VENTRAL ABDOMINAL HERNIA WELL A LEFT PARA MIDLINE ABDOMINAL WALL HERNIA LIKELY AT THE SITE OF PRIOR OSTOMY. 4. STABLE INFRARENAL FUSIFORM ABDOMINAL AORTIC ECTASIA. 5. CHOLELITHIASIS.
== END | disposition home or self-care (01) ==
LOC: RADCTMAIN 11:55
PROVIDERS: ATTEND Family Medicine
DX: K80.20 Calculus of gallbladder without cholecystitis without obstruction (principal); I77.811 Abdominal aortic ectasia; K43.9 Ventral hernia without obstruction or gangrene; K91.872 Postprocedural seroma of a digestive system organ or structure following a digestive system procedure
CPT/HCPCS: 74150

== ENCOUNTER → 2017-06-12 | Outpatient (CLI) | payer MEDICARE ==
--- NOTE | 2017-06-13 17:55 | US ---
EXAMINATION TYPE: US kidneys/renal and bladder DATE OF EXAM: 06/12/2017 COMPARISON: CLINICAL HISTORY: R19.07 Pelvic lesion,N28.[address] showed possible renal lesion EXAM MEASUREMENTS: Right Kidney: 8.3 x 3.9 x 3.7 cm Left Kidney: 9.0 x 3.8 x 4.4 cm Urinary bladder is sonolucent. Right Kidney: Appears small in size. Superior cystic appearing lesion seen to be exophytic = 0.9 x 0 .7 x 0.7 cm. Cystic appearing lesion seen in renal sinus = 0.8 x 0.7 x 0.6 cm Left Kidney: Superior cystic lesion = 1.1 x 1.0 x 0.9 cm Bladder: mild/moderately distended. Wall appears thickened = 5.4 mm Bilateral Jets not seen IMPRESSION: 1. Subcentimeter cysts within the bilateral kidneys.
--- NOTE | 2017-06-13 18:45 | NM ---
EXAMINATION TYPE: NM bone scan whole body DATE OF EXAM: 06/13/2017 COMPARISON: CT abdomen pelvis 04/04/2017 HISTORY: Pelvic lesion, renal lesion Delayed whole-body scanning was performed following the injection of 26 mCi Tc 99m MDP. Images were acquired 3 hours post injection. FINDINGS: There is slight increased radiotracer accumulation within the posterior left L4 level. This could be related to some endplate changes at the L4-L5 level. Attention is paid to the pelvis. Abnormal uptake corresponding to the findings on 04/04/2017 CT pelvi s are not evident suggesting this is more likely benign process. IMPRESSION: 1. Degenerative changes L4 region on the left. 2. No suspicious uptake to suggest metastatic disease. 3. No suspicious uptake or photopenic defects within the pelvis to suggest metastatic disease or rom esponding to CT findings.
== END | disposition home or self-care (01) ==
LOC: RADNMMAIN 11:28
PROVIDERS: ATTEND Family Medicine
DX: N28.1 Cyst of kidney, acquired (principal); R19.07 Generalized intra-abdominal and pelvic swelling, mass and lump; M47.816 Spondylosis without myelopathy or radiculopathy, lumbar region
CPT/HCPCS: 76770; 78306; A9503

== ENCOUNTER → 2018-06-13 | Outpatient (CLI) | payer MEDICARE ==
[~2018-06-13] MED LIST changes: -DEXAMETHASONE SOD PHOSPHATE 10 MG/ML 1 ML VIAL IV ONE; -HEPARIN SODIUM,PORCINE 5,000 UNIT/ML 1 ML VIAL SQ ONE; -MIDAZOLAM 2 MG/2 ML VIAL IV PRN; -ONDANSETRON 4 MG/2 ML VIAL IVP ONE; +REGADENOSON 0.4 MG/5 ML SYRINGE IV ONE; -ceFAZolin 2 GM in SODIUM CHLORIDE 0.9% 100 ML IVPB ONE
--- NOTE | 2018-06-13 11:00 | NM ---
EXAMINATION TYPE: NM stress lexiscan cardiolite DATE OF EXAM: 06/13/2018 COMPARISON: NONE HISTORY: Precordial chest pain and abnormal EKG TECHNIQUE: After the intravenous administration of 10.3 mCi Tc 99m Sestamibi - Cardiolite resting SP ECT images acquired 45 minutes post injection. The patient received 0.4mg Lexiscan, 25.8 mCi Tc 99m Sestamibi - Stress images obtained [address] injection FINDINGS: Review of stress and rest SPECT images demonstrates small area of reversible ischemia involving the a pical inferior wall. Fixed defect inferior wall likely reflecting attenuation artifact from gastric a nd bowel activity. Gated analysis shows normal wall motion with an estimated left ventricular ejectio n fraction of 66 %. IMPRESSION: Small area of reversible ischemia apicoinferior wall.
--- NOTE | 2018-06-13 11:45 | P.STRESS ---
- Stress Test Note Stress Test Results/Findings: Exam Performed: NM stress lexiscan cardiolite Exam Date: 06/13/18 Reason for Exam: Bradycardia Height: 5 ft 6 in Weight: 70.307 kg Protocol: Ila Scan Stage: na Duration of Exercise: na Resting Heart Rate: 52 Resting Blood Pressure: 129/63 Maximum Achieved Heart Rate: 88 Maximum Achieved Blood Pressure: 129/63 85% PMHR: na 100% PMHR: na METS: na Technologist Comment: Stress Test Results/Findings: Baseline heart rate 52 beats a minute Baseline blood pressure 129/63 mmHg Twelve-lead ECG shows sinus rhythm normal NE right bundle branch block morphology with secondary ST-T changes Patient received Lexiscan infusion per protocol without any significant change in heart rate and blood pressure No ECG abnormalities noted during infusion Nuclear portion will be reported separately
--- NOTE | 2018-06-13 15:12 | EST ---
Stress Test Results/Findings: Exam Performed: NM stress lexiscan cardiolite Exam Date: 06/13/18 Reason for Exam: Bradycardia Height: 5 ft 6 in Weight: 70.307 kg Protocol: Ila Scan Stage: na Duration of Exercise: na Resting Heart Rate: 52 Resting Blood Pressure: 129/63 Maximum Achieved Heart Rate: 88 Maximum Achieved Blood Pressure: 129/63 85% PMHR: na 100% PMHR: na METS: na Technologist Comment: Stress Test Results/Findings: Baseline heart rate 52 beats a minute Baseline blood pressure 129/63 mmHg Twelve-lead ECG shows sinus rhythm normal IA right bundle branch block morphology with secondary ST-T changes Patient received Lexiscan infusion per protocol without any significant change in heart rate and blood pressure No ECG abnormalities noted during infusion Nuclear portion will be reported separately MTDD
== END | disposition home or self-care (01) ==
LOC: RADNMMAIN 07:56
PROVIDERS: ATTEND Family Medicine
DX: R00.1 Bradycardia, unspecified (principal)
CPT/HCPCS: 93017; 78452; A9500; J2785

== ENCOUNTER → 2018-07-11 | Outpatient (CLI) | payer MEDICARE ==
--- NOTE | 2018-07-11 15:02 | XR ---
EXAMINATION TYPE: XR cervical spine limited DATE OF EXAM: 07/11/2018 COMPARISON: None HISTORY: Cervicalgia TECHNIQUE: Three-view cervical spine FINDINGS: Degenerative disc changes are present through the cervical spine. Large anterior vertebral body spurs are present most notably C4, C5. Additional anterior vertebral body spurring is present C3 and C6. Posterior spinal lamellar line is intact. Facet degenerative changes are present. Odontoid a ppears unremarkable. Some minimal calcification may be within the right carotid bifurcation. IMPRESSION: 1. Degenerative disc changes and spondylosis within the cervical spine.
== END ==
LOC: RADXRMAIN 09:55
PROVIDERS: ATTEND Family Medicine
DX: M50.30 Other cervical disc degeneration, unspecified cervical region (principal); M47.812 Spondylosis without myelopathy or radiculopathy, cervical region
CPT/HCPCS: 72040

== ENCOUNTER → 2018-10-09 | Outpatient (CLI) | payer MEDICARE ==
--- NOTE | 2018-10-09 08:11 | CT ---
EXAMINATION TYPE: CT sinus wo con DATE OF EXAM: 10/09/2018 COMPARISON: None HISTORY: Sinus pressure, headaches, lack of sinus drainage CT DLP: 667.3 mGycm CONTRAST: 0 mL of Isovue 300 The paranasal sinuses are examined in the axial plane at 2 mm thick sections. Reconstructed images i n the coronal plane were obtained. The maxillary sinuses are clear. There is some mucosal thickening within the anterior ethmoid air ce lls. The sphenoid sinuses are clear. The frontal sinuses are clear. The septum is evaluated. There is septal deviation to the right. The ostiomeatal units are patent. Left is more difficult to confirm. IMPRESSIONS: 1. Mild mucosal thickening within anterior ethmoid air cells bilaterally.
== END | disposition home or self-care (01) ==
LOC: RADCTMAIN 07:31
PROVIDERS: ATTEND Family Medicine
DX: J32.2 Chronic ethmoidal sinusitis (principal)
CPT/HCPCS: 70486

== ENCOUNTER → 2019-07-20 | Outpatient (CLI) | payer MEDICARE ==
--- NOTE | 2019-07-20 13:37 | NM ---
EXAMINATION TYPE: NM stress lexiscan cardiolite DATE OF EXAM: 07/20/2019 COMPARISON: NONE HISTORY: Coronary artery disease. Prior abnormal stress test of 06/13/2018 TECHNIQUE: After the intravenous administration of 10.1 mCi Tc 99m Sestamibi - Cardiolite resting SP ECT images acquired 45 minutes post injection. The patient received 0.4mg Lexiscan, 26 mCi Tc 99m Sestamibi - Stress images obtained 30 minutes post injection FINDINGS: Review of stress and rest SPECT images demonstrates no distinct perfusion abnormality. The prior smal l area of reversible ischemia in the apical inferior wall has increased in size and now presents is a fixed defect from prior infarct in the inferolateral wall greater at rest than stress imaging estima balbir to involve approximately 3 segments. Gated analysis shows abnormal wall motion in the lateral inf erior wall with an estimated left ventricular ejection fraction of 45 %. TID is calculated at 1.05, w ithin normal limits. IMPRESSION: 1. No scintigraphic evidence for reversible ischemia. 2. 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 3. Estimated left ventricular ejection fraction of 45%.
== END | disposition home or self-care (01) ==
LOC: RADNMMAIN 08:47
PROVIDERS: ATTEND Family Medicine
DX: I25.2 Old myocardial infarction (principal); I25.10 Atherosclerotic heart disease of native coronary artery without angina pectoris
CPT/HCPCS: 93017; 78452; A9500; J2785

== ENCOUNTER → 2019-07-23 | Outpatient (CLI) | payer MEDICARE ==
--- NOTE | 2019-07-23 14:47 | US ---
EXAMINATION TYPE: US kidneys/renal and bladder DATE OF EXAM: 07/23/2019 COMPARISON: 06/12/2017 CLINICAL HISTORY: N18.3 CKD stage 3b. Hx renal cysts. EXAM MEASUREMENTS: Right Kidney: 7.8 x 3.9 x 3.9 cm Left Kidney: 7.4 x 4.1 x 4.5 cm Right Kidney: Appears small in size. Lower pole cystic appearing lesion = 1.5 x 1.3 x 1.5 cm. Too sm all to characterize renal lesion at the mid pole = 0.5 x 0.5 x 0.5 cm. This measured larger on the pr ior exam of 06/12/2017 at 0.9 x 0.7 x 0.7 cm. Left Kidney: Appears small in size. No hydronephrosis or masses seen Bladder: distended, anechoic Bilateral Jets not seen There is no evidence for hydronephrosis at this point in time. No nephrolithiasis is seen. The urin boby bladder is anechoic. Bilateral ureteral jets are not seen. Heterogenous prostate gland is partially visualized and incidentally seen. IMPRESSION: 1. Sonographic sequela of medical renal disease with renal atrophy bilaterally. 2. Benign-appearing right renal cyst and subcentimeter too small to accurately characterize right sue al lesion. 3. Incidentally noted heterogenous prostate gland, partially visualized.
== END | disposition home or self-care (01) ==
LOC: RADUSWWP 13:32
PROVIDERS: ATTEND Family Medicine
DX: N28.1 Cyst of kidney, acquired (principal); N28.9 Disorder of kidney and ureter, unspecified; N26.1 Atrophy of kidney (terminal); N18.3 Chronic kidney disease, stage 3 (moderate)
CPT/HCPCS: 76770

== ENCOUNTER → 2020-07-20 | Outpatient (CLI) | payer MEDICARE ==
--- NOTE | 2020-07-20 11:40 | ECHOF ---
Referral Reason:I49.8 bradycardia MEASUREMENTS -------- HEIGHT: 167.6 cm WEIGHT: 68.0 kg BP: 162/72 RVIDd: 3.1 cm (< 3.3) IVSd: 1.3 cm (0.6 - 1.1) LVIDd: 3.9 cm (3.9 - 5.3) LVPWd: 1.3 cm (0.6 - 1.1) IVSs: 1.9 cm LVIDs: 2.9 cm LVPWs: 1.5 cm LA Diam: 3.0 cm (2.7 - 3.8) LAESV Index (A-L): 26.06 ml/m Ao Diam: 3.8 cm (2.0 - 3.7) AV Cusp: 2.2 cm (1.5 - 2.6) MV EXCURSION: 17.007 mm (> 18.000) MV EF SLOPE: 83 mm/s (70 - 150) EPSS: 0.5 cm MV E Ujstus: 1.02 m/s MV DecT: 241 ms MV A Justus: 1.17 m/s MV E/A Ratio: 0.88 RAP: 5.00 mmHg RVSP: 33.95 mmHg FINDINGS -------- Resting bradycardia (HR<60bpm). This was a technically good study. The left ventricular size is normal. There is mild concentric left ventricular hypertrophy. Overa ll left ventricular systolic function is normal with, an EF between 60 - 65 %. The right ventricle is normal in size. Normal LA size by volume 22+/-6 ml/m2. The right atrium is normal in size. Interatrial and interventricular septum intact. There is mild aortic valve sclerosis. The mitral valve is normal. Mild tricuspid regurgitation present. There is borderline pulmonary hypertension. The right ventr icular systolic pressure, as measured by Doppler, is 33.95mmHg. Trace/mild (physiologic) pulmonic regurgitation. The aortic root is dilated measuring 3.8cm. Normal inferior vena cava with normal inspiratory collapse consistent with estimated right atrial pre ssure of 5 mmHg. There is no pericardial effusion. CONCLUSIONS -------- 1. Resting bradycardia (HR<60bpm). 2. The left ventricular size is normal. 3. There is mild concentric left ventricular hypertrophy. 4. Overall left ventricular systolic function is normal with, an EF between 60 - 65 %. 5. There is mild aortic valve sclerosis. 6. Mild tricuspid regurgitation present. 7. There is borderline pulmonary hypertension. 8. The right ventricular systolic pressure, as measured by Doppler, is 33.95mmHg. 9. Trace/mild (physiologic) pulmonic regurgitation. 10. The aortic root is dilated measuring 3.8cm. 11. There is no pericardial effusion. CAD APPLICATION SUPPORT SPECIALIST: Nae Ventura RDCS
== END ==
LOC: RADECHMAIN 08:20
PROVIDERS: ATTEND Family Medicine
DX: I08.2 Rheumatic disorders of both aortic and tricuspid valves (principal); I27.20 Pulmonary hypertension, unspecified
CPT/HCPCS: 93306

== ENCOUNTER 2021-02-21 09:27 | Emergency (ER) | payer MEDICARE ==
--- NOTE | 2021-02-21 11:14 | XR ---
EXAMINATION TYPE: XR Hip Complete RT DATE OF EXAM: 02/21/2021 CLINICAL HISTORY: Pain. TECHNIQUE: AP and frogleg views of the right hip are obtained. COMPARISON: CT abdomen and pelvis April 04, 2017. FINDINGS: There is no acute fracture/dislocation evident in the right hip. Mild axial joint space lo ss in the right hip is redemonstrated. No significant spurring is seen. Femoral head shape is maintai allison. Mild right pelvic and groin arterial calcification incidentally noted. IMPRESSION: As above. No significant change from 2017 CT study.
[2021-02-21] MEDS ORDERED: KETOROLAC 15 MG/ML 1 ML VIAL IM STA (13:17)
[2021-02-21] MEDS ORDERED: ORPHENADRINE 30 MG/ML 2 ML VIAL IM STA (13:17)
--- NOTE | 2021-02-21 14:40 | ED ---
General Adult HPI - General Chief complaint: Extremity Injury, Lower Stated complaint: hip pain Time Seen by Provider: 02/21/21 12:48 Source: patient, family, RN notes reviewed Mode of arrival: wheelchair Limitations: no limitations - History of Present Illness Initial comments: 80-year-old male with a past medical history of hyperlipidemia, hypertension, COPD, IA, diverticulitis presents to the emergency room for a chief complaint of right hip pain. Patient states it started hurting him a few days ago and progressively has worsened. States he feels he cannot bear weight on the right hip. Patient denies any injuries or falls. Patient has no other complaints at this time including shortness of breath, chest pain, abdominal pain, nausea or vomiting, headache, or visual changes. - Related Data Home Medications Medication Instructions Recorded Confirmed Atorvastatin Calcium [Lipitor] 40 mg PO HS 12/30/14 02/21/21 Clopidogrel [Plavix] 75 mg PO DAILY 12/22/15 02/21/21 Isosorbide Mononitrate ER [Imdur] 30 mg PO DAILY 12/22/15 02/21/21 hydrALAZINE HCL [Apresoline] 50 mg PO TID 12/22/15 02/21/21 Aspirin EC [Ecotrin Low Dose] 81 mg PO DAILY 02/21/21 02/21/21 HYDROcodone/APAP 7.5-325MG [[place] 1 tab PO QID PRN 02/21/21 02/21/21 7.5-325] Ibuprofen [Motrin Ib] 400 mg PO Q6H PRN 02/21/21 02/21/21 Montelukast [Singulair] 10 mg PO DAILY 02/21/21 02/21/21 Omeprazole 20 mg PO DAILY 02/21/21 02/21/21 Previous Rx's Medication Instructions Recorded ALPRAZolam [Xanax] 0.25 mg PO TID #21 tab 11/14/15 predniSONE 50 mg PO DAILY #5 tablet 02/21/21 Allergies Allergy/AdvReac Type Severity Reaction Status Date / Time Iodinated Contrast Media Allergy Dyspnea Verified 02/21/21 14:05 [Iodinated Contrast- Oral and IV Dye] morphine AdvReac Wheezing Verified 02/21/21 14:05 Review of Systems ROS Statement: Those systems with pertinent positive or pertinent negative responses have been documented in the HPI. ROS Other: All systems not noted in ROS Statement are negative. Past Medical History Past Medical History: COPD, Hyperlipidemia, Hypertension, Myocardial Infarction ([place]) Additional Past Medical History / Comment(s): DIVERTICULITIS, restless leg syndrome, Last Myocardial Infarction Date:: 2004 History of Any Multi-Drug Resistant Organisms: None Reported Past Surgical History: Bowel Resection, Coronary Bypass/CABG, Heart Catheterization Additional Past Surgical History / Comment(s): CABG 2004- vessel, colostomy/later reversal, Past Anesthesia/Blood Transfusion Reactions: No Reported Reaction Past Psychological History: Anxiety Smoking Status: Never smoker Past Alcohol Use History: None Reported Past Drug Use History: None Reported - Past Family History Mother Family Medical History: Cancer Additional Family Medical History / Comment(s): brain Father Family Medical History: No Reported History Additional Family Medical History / Comment(s): FROM OLD AGE AT 89 General Exam Limitations: no limitations General appearance: alert, in no apparent distress Head exam: Present: atraumatic Eye exam: Present: normal appearance, PERRL, EOMI. Absent: scleral icterus, conjunctival injection ENT exam: Present: normal exam, mucous membranes moist Neck exam: Present: normal inspection, full ROM. Absent: tenderness Respiratory exam: Present: normal lung sounds bilaterally. Absent: respiratory distress, wheezes Cardiovascular Exam: Present: regular rate, normal rhythm, normal heart sounds GI/Abdominal exam: Present: soft, normal bowel sounds. Absent: distended, tenderness Extremities exam: Present: normal capillary refill (Capillary refill less than 2 seconds, DP pulse 2+ right lower extremity). Absent: full ROM (Patient has about 30 flexion of the right hip, extension to neutral position.) Neurological exam: Present: alert Course Vital Signs 02/21/21 10:22 Temperature 98.1 F Pulse Rate 68 Respiratory 18 Rate Blood Pressure 152/78 O2 Sat by Pulse 96 Oximetry Medical Decision Making - Medical Decision Making Vitals are stable. Patient well-appearing. HPI and physical exam as documented. X-ray of the hip which was obtained through triage shows no fracture or dislocation. Signs of arthritis are noted. Given there is suspicion of sciatic component CT of the lumbar spine is obtained which showed spinal canal stenosis secondary to bulging disc at L3-L4. There is also is called L2-L3 with paracentral disc herniation as well as spinal canal narrowing L4 to [address] to [address] of the hip shows mild osteoarthritis at this time I did a limited patient and he was able to ambulate although he does have some pain remaining in the right hip. I do suspect is related to sciatica. He was started on Solu-Medrol and prednisone. He does have a walker and help at home. We will try Tylenol 3. He will return here for any worsening symptoms. Disposition Clinical Impression: Back pain, Hip pain, Bulging discs Disposition: HOME SELF-CARE Condition: Good Instructions (If sedation given, give patient instructions): Sciatica (ED), Hip Pain (ED) Additional Instructions: Please take steroid as directed. Take Tylenol 3 for pain. Use walker. Follow- up with orthopedics. Return to the emergency room for any worsening symptoms Prescriptions: predniSONE 50 mg PO DAILY #5 tablet Is patient prescribed a controlled substance at d/c from ED?: No Referrals: Gerardo Quiros MD [Primary Care Provider] - 1-2 days Fercho Lawrence MD [STAFF PHYSICIAN] - 1-2 days Time of Disposition: 15:23
--- NOTE | 2021-02-21 14:54 | CT ---
EXAMINATION TYPE: CT hip RT wo con DATE OF EXAM: 02/21/2021 COMPARISON: CT 04/04/2017, plain film 02/21/2021 HISTORY: severe right flank/right hip pain CT DLP: 387.6 mGycm Automated exposure control for dose reduction was used. Helical imaging through the right hip. FINDINGS: There is a small spur along the acetabulum at the level I aspect of the joint space. Mild marginal sp urring is present in the femoral head. Alignment is maintained. Acetabular roof shows a focal area of sclerosis which is stable and likely represents a bone island. There is no fracture or dislocation. Dense vascular calcifications are present along the external iliac, common femoral, superficial femor al artery and deep femoral artery on the right. Some spurring present at the right sacroiliac joint. Prostate is enlarged. IMPRESSION: MILD OSTEOARTHRITIC CHANGE. ADDITIONAL FINDINGS ABOVE.
--- NOTE | 2021-02-21 15:00 | CT ---
EXAMINATION TYPE: CT lumbar spine wo con DATE OF EXAM: 02/21/2021 COMPARISON: None HISTORY: severe right flank/right hip pain CT DLP: 751.8 mGycm CONTRAST: Normal TECHNIQUE: CT of the lumbar spine is performed on a spiral scan at 3 mm thick sections. Reconstructed images are performed in the coronal and sagittal planes. FINDINGS: T12-L1: No focal disc herniation or significant disc bulge is evident. No spinal canal stenosis or neural foraminal stenosis is present. L1-L2: No focal disc herniation or significant disc bulge is evident. No spinal canal stenosis or n eural foraminal stenosis is present L2-L3: Broad-based disc bulge is present with moderate intrathecal sac flattening. No AP spinal canal stenosis present. There appears to be a left paracentral disc herniation extending beyond the endpla te of L3. This is moderate anterior thecal sac compression. Correlate with left L4 radicular symptoms . Some facet hypertrophy is present with posterolateral thecal sac contact. Moderate left and mild-to -moderate right foraminal narrowing is present. L3-L4: Mild disc bulge may be present. Endplate spurring is noted. There is loss of disc height at th is level. Facet hypertrophy and ligamentum flavum laxity is present. Spinal canal narrowing is likely present. L4-L5: Disc bulging is present which may have moderate anterior thecal sac compression. Facet hypertr ophy is present greater on the right. Some ligamentum flavum laxity is present. Some spinal canal kahlil rowing is present. There is moderate left and severe right foraminal stenosis. L5-S1: No focal disc herniation or significant disc bulge is evident. No spinal canal stenosis. Fac et hypertrophy is noted. Vertebral alignment appears normal. Multilevel disc changes are present most notably L3-4 and to a le sser degree L4-5 and L1-L2 and posteriorly T12-L1. IMPRESSION: Spinal canal stenosis secondary to disc bulging and facet hypertrophy and ligamentum flavum laxity pr esent L3-4. 2. Disc bulge at L2-3 has a left paracentral disc herniation extension with moderate anterior thecal sac compression. Correlate with left L4 radicular symptoms 3. L4-5 spinal canal narrowing due to disc bulging and facet hypertrophy and ligamentum flavum laxity . 4. Multilevel foraminal stenosis discussed above. 5. No acute osseous abnormality.
[2021-02-21] MEDS ORDERED: methylPREDNISolone SOD SUCCI 125 MG/2 ML VIAL IM STA (15:23)
[2021-02-21] MEDS ORDERED: ACET/COD 300 MG/30 MG STARTER PACK 6 TAB BTL PO STA (15:51)
[2021-02-21 16:07] VITALS: RESP 20
[2021-02-21 16:08] VITALS: BP 150/80; PULSE 66; TEMP 98.2
== END 2021-02-21 16:07 | disposition home or self-care (01) ==
LOC: EC 09:27
DX: M48.061 Spinal stenosis, lumbar region without neurogenic claudication (principal); M51.26 Other intervertebral disc displacement, lumbar region; E78.5 Hyperlipidemia, unspecified; G25.81 Restless legs syndrome; I10 Essential (primary) hypertension; I25.2 Old myocardial infarction; J44.9 Chronic obstructive pulmonary disease, unspecified; Z79.02 Long term (current) use of antithrombotics/antiplatelets; Z79.82 Long term (current) use of aspirin; Z79.899 Other long term (current) drug therapy; Z95.1 Presence of aortocoronary bypass graft; Z88.5 Allergy status to narcotic agent; Z91.041 Radiographic dye allergy status
CPT/HCPCS: 73502; 72131; 73700; 99284; 96372; J2360; J2930; J1885

== ENCOUNTER 2021-05-01 11:10 | Observation (INO) | payer MEDICARE ==
--- NOTE | 2021-05-01 11:31 | ED ---
General Adult HPI - General Chief complaint: Dizziness Stated complaint: tingling all over Time Seen by Provider: 05/01/21 11:23 Source: patient, family, RN notes reviewed, old records reviewed Mode of arrival: wheelchair Limitations: no limitations - History of Present Illness Initial comments: 80-year-old well-appearing male, alert and oriented 4, presents to the emergency room with 1 week of intermittent frontal headache, watery eyes and nasal drainage. States that he also has body aches, lightheadedness and dizziness with generalized weakness and feels "tingly all over". Patient states this has been ongoing for a week. He did try aspirin with no relief. States he talked to his doctor Ochoa who told him to come into ER for carotid Doppler and evaluation of his heart. He denies any chest pain or difficulty in breathing. He has been vaccinated against coronavirus. He denies any nausea vomiting or diarrhea. He does have a history of COPD, hypertension, coronary artery bypass graft 2004, diverticulitis with colostomy reversal and pancreatitis. -: week(s) (1) Location: head Radiation: non-radiation Severity scale (1-10): 0 Consistency: intermittent, now resolved Improves with: none Worsens with: none Associated Symptoms: fever/chills, headaches (frontal), other (watery eyes, runny nose) Treatments Prior to Arrival: none - Related Data Home Medications Medication Instructions Recorded Confirmed Atorvastatin Calcium [Lipitor] 40 mg PO HS 12/30/14 05/01/21 Clopidogrel [Plavix] 75 mg PO DAILY 12/22/15 05/01/21 Isosorbide Mononitrate ER [Imdur] 30 mg PO DAILY 12/22/15 05/01/21 hydrALAZINE HCL [Apresoline] 50 mg PO TID 12/22/15 05/01/21 Aspirin EC [Ecotrin Low Dose] 81 mg PO DAILY 02/21/21 05/01/21 Montelukast [Singulair] 10 mg PO DAILY 02/21/21 05/01/21 Omeprazole 20 mg PO DAILY 02/21/21 05/01/21 Naproxen 500 mg PO BID 05/01/21 05/01/21 Pregabalin [Lyrica] 75 mg PO BID 05/01/21 05/01/21 Previous Rx's Medication Instructions Recorded ALPRAZolam [Xanax] 0.25 mg PO TID #21 tab 11/14/15 Allergies Allergy/AdvReac Type Severity Reaction Status Date / Time Iodinated Contrast Media Allergy Dyspnea Verified 05/01/21 13:21 [Iodinated Contrast- Oral and IV Dye] morphine AdvReac Wheezing Verified 05/01/21 13:21 Review of Systems ROS Statement: Those systems with pertinent positive or pertinent negative responses have been documented in the HPI. ROS Other: All systems not noted in ROS Statement are negative. Past Medical History Past Medical History: COPD, Hyperlipidemia, Hypertension, Myocardial Infarction ([place]) Additional Past Medical History / Comment(s): DIVERTICULITIS, restless leg syndrome, Last Myocardial Infarction Date:: 2004 History of Any Multi-Drug Resistant Organisms: None Reported Past Surgical History: Bowel Resection, Coronary Bypass/CABG, Heart Catheterization Additional Past Surgical History / Comment(s): CABG 2004- vessel, colostomy/later reversal, Past Anesthesia/Blood Transfusion Reactions: No Reported Reaction Past Psychological History: Anxiety Smoking Status: Never smoker Past Alcohol Use History: None Reported Past Drug Use History: None Reported - Past Family History Mother Family Medical History: Cancer Additional Family Medical History / Comment(s): brain Father Family Medical History: No Reported History Additional Family Medical History / Comment(s): FROM OLD AGE AT 89 General Exam Limitations: no limitations General appearance: alert, in no apparent distress Head exam: Present: atraumatic, normocephalic, normal inspection Eye exam: Present: normal appearance, PERRL, EOMI. Absent: scleral icterus, conjunctival injection, nystagmus, periorbital swelling, periorbital tenderness ENT exam: Present: normal exam, normal oropharynx, mucous membranes moist Neck exam: Present: normal inspection, full ROM. Absent: tenderness, meningismus, lymphadenopathy, thyromegaly Respiratory exam: Present: normal lung sounds bilaterally. Absent: respiratory distress, wheezes, rales, rhonchi, stridor, chest wall tenderness, accessory muscle use Cardiovascular Exam: Present: regular rate, normal rhythm, normal heart sounds. Absent: systolic murmur, diastolic murmur, rubs, gallop, clicks, JVD GI/Abdominal exam: Present: soft, normal bowel sounds. Absent: distended, ten derness, guarding, rebound, rigid Extremities exam: Present: normal inspection, full ROM, normal capillary refill. Absent: tenderness, pedal edema, joint swelling, calf tenderness Neurological exam: Present: alert, oriented X3 Psychiatric exam: Present: normal affect, normal mood Skin exam: Present: warm, dry, intact, normal color. Absent: rash, cyanosis, diaphoretic, petechiae, pallor Course Vital Signs 05/01/21 05/01/21 05/01/21 11:13 13:15 17:00 Temperature 98 F Pulse Rate 71 64 64 Respiratory 18 18 18 Rate Blood Pressure 173/93 126/70 146/77 O2 Sat by Pulse 98 97 96 Oximetry 05/01/21 18:05 Temperature 98 F Pulse Rate 64 Respiratory 18 Rate Blood Pressure 146/77 O2 Sat by Pulse 96 Oximetry EKG Findings - EKG Results: EKG: sinus rhythm (Ventricular rate of 66, RI interval of 0.136, QRS 0.168, QTc 0.425) Medical Decision Making - Medical Decision Making 80-year-old well-appearing male presents to the emergency room with 1 week of intermittent frontal headache, watery eyes, nasal drainage and body aches. Patient states this has been ongoing for a week. He states that he has been increasingly weak with episodes of dizziness and lightheadedness. He denies any chest pain or difficulty in breathing. He has been vaccinated against coronavirus. He does have a history of COPD, hypertension, CKD, coronary artery bypass graft 2004, diverticulitis with colostomy reversal and pancreatitis. Patient is negative for coronavirus. His urinalysis is clear with no signs of dehydration or infection. Troponin is negative at 0.012, EKG does not show any ST elevation. Case discussed with Dr. Alcocer, patient will be admitted for dizziness and weakness, chronic kidney disease. - Lab Data Result diagrams: 05/01/21 11:37 05/01/21 11:37 Lab Results 05/01/21 05/01/21 05/01/21 Range/Units 11:37 11:37 11:37 WBC 7.4 (3.8-10.6) k/uL RBC 4.66 (4.30-5.90) m/uL Hgb 14.3 (13.0-17.5) gm/dL Hct 44.3 (39.0-53.0) % MCV 95.1 (80.0-100.0) fL MCH 30.7 (25.0-35.0) pg MCHC 32.3 (31.0-37.0) g/dL RDW 15.3 (11.5-15.5) % Plt Count 203 (150-450) k/uL MPV 7.6 Neutrophils % 68 % Lymphocytes % 22 % Monocytes % 6 % Eosinophils % 2 % Basophils % 1 % Neutrophils # 5.0 (1.3-7.7) k/uL Lymphocytes # 1.6 (1.0-4.8) k/uL Monocytes # 0.4 (0-1.0) k/uL Eosinophils # 0.2 (0-0.7) k/uL Basophils # 0.1 (0-0.2) k/uL Sodium 138 (137-145) mmol/L Potassium 4.2 (3.5-5.1) mmol/L Chloride 109 H (98-107) mmol/L Carbon Dioxide 22 (22-30) mmol/L Anion Gap 7 mmol/L BUN 30 H (9-20) mg/dL Creatinine 1.91 H (0.66-1.25) mg/dL Est GFR (CKD-EPI)AfAm 37 (>60 ml/min/1.73 sqM) Est GFR (CKD-EPI)NonAf 32 (>60 ml/min/1.73 sqM) Glucose 95 (74-99) mg/dL Calcium 9.2 (8.4-10.2) mg/dL Magnesium 2.0 (1.6-2.3) mg/dL Total Bilirubin 0.8 (0.2-1.3) mg/dL AST 17 (17-59) U/L ALT 14 (4-49) U/L Alkaline Phosphatase 89 (38-126) U/L Troponin I <0.012 (0.000-0.034) ng/mL Total Protein 6.5 (6.3-8.2) g/dL Albumin 3.9 (3.5-5.0) g/dL Urine Color Urine Appearance (Clear) Urine pH (5.0-8.0) Ur Specific [place] (1.001-1.035) Urine Protein (Negative) Urine Glucose (UA) (Negative) Urine Ketones (Negative) Urine Blood (Negative) Urine Nitrite (Negative) Urine Bilirubin (Negative) Urine Urobilinogen (<2.0) mg/dL Ur Leukocyte Esterase (Negative) Coronavirus (PCR) (Not Detectd) 05/01/21 05/01/21 Range/Units 11:47 13:12 WBC (3.8-10.6) k/uL RBC (4.30-5.90) m/uL Hgb (13.0-17.5) gm/dL Hct (39.0-53.0) % MCV (80.0-100.0) fL MCH (25.0-35.0) pg MCHC (31.0-37.0) g/dL RDW (11.5-15.5) % Plt Count (150-450) k/uL MPV Neutrophils % % Lymphocytes % % Monocytes % % Eosinophils % % Basophils % % Neutrophils # (1.3-7.7) k/uL Lymphocytes # (1.0-4.8) k/uL Monocytes # (0-1.0) k/uL Eosinophils # (0-0.7) k/uL Basophils # (0-0.2) k/uL Sodium (137-145) mmol/L Potassium (3.5-5.1) mmol/L Chloride (98-107) mmol/L Carbon Dioxide (22-30) mmol/L Anion Gap mmol/L BUN (9-20) mg/dL Creatinine (0.66-1.25) mg/dL Est GFR (CKD-EPI)AfAm (>60 ml/min/1.73 sqM) Est GFR (CKD-EPI)NonAf (>60 ml/min/1.73 sqM) Glucose (74-99) mg/dL Calcium (8.4-10.2) mg/dL Magnesium (1.6-2.3) mg/dL Total Bilirubin (0.2-1.3) mg/dL AST (17-59) U/L ALT (4-49) U/L Alkaline Phosphatase (38-126) U/L Troponin I (0.000-0.034) ng/mL Total Protein (6.3-8.2) g/dL Albumin (3.5-5.0) g/dL Urine Color Light Yellow Urine Appearance Clear (Clear) Urine pH 5.0 (5.0-8.0) Ur Specific [place] 1.007 (1.001-1.035) Urine Protein Negative (Negative) Urine Glucose (UA) Negative (Negative) Urine Ketones Negative (Negative) Urine Blood Negative (Negative) Urine Nitrite Negative (Negative) Urine Bilirubin Negative (Negative) Urine Urobilinogen <2.0 (<2.0) mg/dL Ur Leukocyte Esterase Negative (Negative) Coronavirus (PCR) Not Detected (Not Detectd) Disposition Clinical Impression: Dizziness, Weakness Disposition: ADMITTED IP TO THIS [facility] Decision Date: 05/01/21 Decision Time: 14:32
[2021-05-01 11:49] LABS: Basophils # (A) 0.1 k/uL (0-0.2); Basophils % (A) 1 %; Eosinophils # (A) 0.2 k/uL (0-0.7); Eosinophils % (A) 2 %; HCT 44.3 % (39.0-53.0); HGB 14.3 gm/dL (13.0-17.5); Lymphocytes # (A) 1.6 k/uL (1.0-4.8); Lymphocytes % (A) 22 %; MCH 30.7 pg (25.0-35.0); MCHC 32.3 g/dL (31.0-37.0); MCV 95.1 fL (80.0-100.0); Mean Platelet Volume 7.6; Monocytes # (A) 0.4 k/uL (0-1.0); Monocytes % (A) 6 %; Neutrophils % (A) 68 %; Platelet Count 203 k/uL (150-450); RBC 4.66 m/uL (4.30-5.90); RDW 15.3 % (11.5-15.5); WBC 7.4 k/uL (3.8-10.6)
[2021-05-01 12:02] LABS: Albumin 3.9 g/dL (3.5-5.0); Calcium 9.2 mg/dL (8.4-10.2); Potassium 4.2 mmol/L (3.5-5.1); Total Bilirubin 0.8 mg/dL (0.2-1.3); Total Protein 6.5 g/dL (6.3-8.2)
[2021-05-01 13:24] LABS: Appearance,Urine Clear (Clear); Bilirubin,Urine Negative (Negative); Blood,Urine Negative (Negative); Color,Urine Light Yellow; Glucose,Urine (UA) Negative (Negative); Ketones,Urine Negative (Negative); Leukocyte Esterase,Urine Negative (Negative); Nitrite,Urine Negative (Negative); Protein,Urine Negative (Negative); Specific Gravity,Urine 1.007 (1.001-1.035); Urobilinogen,Urine <2.0 mg/dL (<2.0)
[2021-05-01] MEDS ORDERED: NALOXONE 0.4 MG/ML 1 ML VIAL IV PRN (14:30)
--- NOTE | 2021-05-01 15:00 | US ---
EXAMINATION TYPE: US carotid duplex BILAT DATE OF EXAM: 05/01/2021 COMPARISON: NONE CLINICAL HISTORY: dizziness. EXAM MEASUREMENTS: RIGHT: Peak Systolic Velocity (PSV) cm/sec ----- Right CCA: 74.0 ----- Right ICA: 58.1 ----- Right ECA: 103.1 ICA/CCA ratio: 1.27 RIGHT: End Diastole cm/sec ----- Right CCA: 8.6 ----- Right ICA: 19.7 ----- Right ECA: 5.7 LEFT: Peak Systolic Velocity (PSV) cm/sec ----- Left CCA: 92.4 ----- Left ICA: 70.0 ----- Left ECA: 103.0 ICA/CCA ratio: 1.32 LEFT: End Diastole cm/sec ----- Left CCA: 18.4 ----- Left ICA: 21.0 ----- Left ECA: 6.5 VERTEBRALS (direction of flow): Right Vertebral: Antegrade Left Vertebral: Antegrade Rhythm: Normal Mild plaque seen in the bilateral carotid artery bulb. IMPRESSION: 1. Mild atheromatous plaquing without significant flow-limiting stenosis. Criteria for Assigning % of Stenosis / Diameter reduction (Estimation based on the indirect measurements of the internal carotid artery velocities (ICA PSV). 1. Normal (no stenosis)=ICA PSV < 125 cm/s: ratio < 2.0: ICA EDV<40 cm/s. 2. Less than 50% stenosis=ICA PSV < 125 cm/s: ratio < 2.0: ICA EDV<40 cm/s. 3. 50 to 69% stenosis=ICA PSV of 125 to 230 cm/s: ration 2.0 ? 4.0: ICA EDV 40-100 cm/s. 4. Greater than 70% stenosis to near occlusion= ICA PSV > 230 cm/s: ratio > 4.0: ICA EDV > 100 cm/s. 5. Near occlusion= ICA PSV velocities may be low or undetectable: variable ratio and ICA EDV. 6. Total occlusion=unable to detect flow.
[2021-05-01] MEDS: PREGABALIN 75 MG CAP PO SCH (19:56)
[2021-05-01] MEDS: hydrALAZINE HCL 50 MG TAB PO SCH (19:57)
[2021-05-01] MEDS: ALPRAZolam 0.25 MG TAB PO SCH (20:45)
[2021-05-01] MEDS ORDERED: ATORVASTATIN 40 MG TAB PO SCH (21:00)
--- NOTE | 2021-05-01 23:50 | HP ---
HISTORY AND PHYSICAL This 80-year-old white male presents with a frontal headache, watery eyes, nasal drainage and 4-extremity numbness and dizziness, weakness and tingling all over 4 extremities for the last 2 weeks. He says he has been negative for COVID. He saw Dr. Packer, who said to come to the ER for carotid Doppler, evaluation of his heart. Denies any chest pain or shortness of breath. He has history of COPD and nicotine addiction. He had CABG surgery in 2004, diverticulitis, colostomy and reversal, pancreatitis. As mentioned above, the frontal headaches. Home medicines are Lipitor 40 daily, Plavix 75 daily, Imdur 30 mg daily, hydralazine 50 t.i.d., aspirin 81 mg daily, Singulair 10 mg daily, omeprazole 20 mg daily, Naprosyn 500 mg b.i.d., Lyrica 75 b.i.d. ALLERGIES: MORPHINE, IODINE. FAMILY HISTORY: Mother with cancer of the brain. Father of old age. Fourteen-point review of systems otherwise is negative. PHYSICAL EXAMINATION: Vital signs stable. Afebrile. Cardiovascular S1, S2. Lungs clear. Decreased breath sounds x4. Abdomen soft, non-tender. Hematology negative Homans. Psych fair mood and affect. ASSESSMENT: 1. Atypical dizziness. 2. Possible prerenal renal insufficiency and mild dehydration, although he states he has been increasing his fluids at home over the last week or 2 without success. Will check a B12, folic acid level. Get neurology involved. Rehydrate him overnight for elevated BUN and creatinine. Do a CT of the chest for smoking and COPD as well as CT of the brain for dizziness. Carotid Doppler so far is negative for any blockage. Prognosis guarded. MMODL / IJN: [id number] /
[2021-05-02] MEDS: SODIUM CHLORIDE 0.9% 1,000 ML IV SCH ×2 (01:01→12:54)
[2021-05-02 07:39] VITALS: RESP 18
[2021-05-02 08:19] VITALS: PULSE 77
--- NOTE | 2021-05-02 08:23 | CT ---
EXAMINATION TYPE: CT brain wo con DATE OF EXAM: 05/02/2021 COMPARISON: 02/16/2015 HISTORY: Doizziness, Gen. weakness CT DLP: 1090.4 mGycm Automated exposure control for dose reduction was used. FINDINGS: Moderate generalized degenerative change with low attenuation white matter which is nonspecific. No midline shift or mass effect. No acute hemorrhage. There is intracranial atherosclerotic changes. Calvarium is intact. Orbits are symmetric. Craniocervi pita junction demonstrates low-lying cerebellar tonsils at the level of foramen magnum. Sella turcica has a normal appearance. Nasal septal deviation with no significant changes of sinusitis. IMPRESSION: DEGENERATIVE AND NONSPECIFIC WHITE MATTER CHANGES MOST TYPICAL REMOTE WHITE MATTER ISCHEMIA. IF JANIE RN FOR ACUTE ISCHEMIA CORRELATE WITH MRI CLINICALLY WARRANTED.
--- NOTE | 2021-05-02 08:29 | CT ---
EXAMINATION TYPE: CT chest wo con DATE OF EXAM: 05/02/2021 COMPARISON: None HISTORY: COPD CT DLP: 322.7 mGycm. Automated Exposure Control for Dose Reduction was Utilized. TECHNIQUE: CT scan of the thorax is performed without IV contrast. FINDINGS: LUNGS: The lungs are grossly clear, there is no concerning parenchymal mass or nodule identified. T here is no pleural effusion or pneumothorax seen. The tracheobronchial tree is patent. Subsegmental areas of consolidation are seen involving the lung bases most typical of scar or atelectasis. Emphyse matous changes are noted. MEDIASTINUM: Lack of IV contrast is noted to limit evaluation for mediastinal and especially hilar ad enopathy. There are no definitive greater than 1 cm hilar or mediastinal lymph nodes. Atherosclerotic change of the aorta. Coronary artery calcifications are seen. There is epicardial lead suggested. OTHER: Hypertrophic change of the spine. There is a intramuscular lipoma within the posterior paraspi nal structures on the right measuring 3.3 cm. Gallstones incidentally noted. Surgical clips in the ep igastrium. Poststernotomy changes are seen. Hypodensity within the right kidney measures 1 Hounsfield unit compatible with simple cyst. There is a anterior abdominal wall hernia laterally on the left co ntaining peritoneal fat. IMPRESSION: 1. COPD with basilar atelectasis favored over infiltrate. 2. Coronary artery calcification. 3. Cholelithiasis. 4. Intramuscular lipoma posterior right paraspinal musculature measuring 3.3 cm correlate with MRI as clinically warranted.
[2021-05-02] MEDS: hydrALAZINE HCL 50 MG TAB PO SCH ×2 (08:50→16:12)
[2021-05-02] MEDS: ALPRAZolam 0.25 MG TAB PO SCH ×2 (08:50→16:12)
[2021-05-02] MEDS: PREGABALIN 75 MG CAP PO SCH (08:50)
[2021-05-02] MEDS ORDERED: ASPIRIN 81 MG PO SCH (09:00)
[2021-05-02] MEDS ORDERED: MONTELUKAST 10 MG TAB PO SCH (09:00)
[2021-05-02] MEDS ORDERED: PANTOPRAZOLE 40 MG TABLET PO SCH (09:00)
[2021-05-02] MEDS ORDERED: CLOPIDOGREL 75 MG TAB PO SCH (09:00)
[2021-05-02] MEDS ORDERED: ISOSORBIDE MONONITRATE ER 30 MG TAB.ER.24H PO SCH (09:00)
--- NOTE | 2021-05-02 09:23 | P.CRDCN ---
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 Patient used to follow in the office with Dr. Holt but has not been seen since July 2018. We have been asked to see the patient in consultation for dizziness. Patient examined at the bedside. Patient states over the last week he has been feeling a tingling sensation over his entire body. He states the tingling sensation is not localized to one side of his body or one part of his body but rather a generalized tingling sensation. He also reports feeling dizzy. He states he does not check his blood pressure at home. He states the dizziness does not occur when he is changing positions and can happen when he is just sitting down. Yesterday reports having an episode of double vision last week when he was in his living room and began seeing to television sets in 2 sets of 1 dose and blinds. Patient denies having any chest pain or pressure. He denies shortness of breath. He denies any syncopal episodes. EKG reveals sinus mechanism with right bundle branch block Carotid Doppler: Mild atheromatous plaquing without significant flow limiting stenosis CT of the brain: Degenerative and nonspecific white matter changes most typical remote white matter ischemia. CT chest: COPD with basilar atelectasis favored over infiltrate. Coronary artery calcification. Cholelithiasis. Intramuscular lipoma posterior right paraspinal musculature measuring 3.3 cm. Laboratory data: WBC 7.4. Hemoglobin 14.3. Platelet count 203. Sodium 138. Potassium 4.2. BUN 30. Creatinine 1.91. Troponin negative 1. Current home cardiac medications include hydralazine 50 mg 3 times a day, Imdur 30 mg daily, Plavix 75 mg daily, Lipitor 40 mg daily, and aspirin 81 mg daily Most recent echocardiogram obtained in July 2020 revealed ejection fraction 60- 65%, mild tricuspid regurgitation, and borderline pulmonary hypertension Patient underwent Lexiscan stress test in July 2019 with no evidence of reversible ischemia. Evidence of old infarct in the inferior lateral wall. Ejection fraction 45%. REVIEW OF SYSTEMS: At the time of my exam: CONSTITUTIONAL: Denies fever or chills. HEENT: Denies blurred vision, vision changes, or eye pain. Denies hemoptysis CARDIOVASCULAR: Denies chest pain. Denies orthopnea. Denies PND. Denies palpitations RESPIRATORY: Denies shortness of breath. GASTROINTESTINAL: Denies abdominal pain. Denies nausea or vomiting. HEMATOLOGIC: Denies bleeding disorders. GENITOURINARY: Denies any blood in urine. SKIN: Denies pruitis. Denies rash. PHYSICAL EXAM: VITAL SIGNS: Reviewed. GENERAL: Well-developed in no acute distress. HEENT: Head is normocephalic. Pupils are equal, round. Sclerae anicteric. Mucous membranes of the mouth are moist. Neck supple. No JVD or thyromegaly LUNGS: Respirations even and unlabored. Lungs essentially clear to auscultation bilaterally. HEART: Regular rate and rhythm. S1 and S2 heard. ABDOMEN: Soft. Nondistended. Nontender. EXTREMITIES: Normal range of motion. No clubbing or cyanosis. Peripheral pulses intact. No lower extremity edema NEUROLOGIC: Awake and alert. Oriented x 3. ASSESSMENT: Dizziness Coronary artery disease with previous CABG x 3 Hypertension Hyperlipidemia Chronic kidney disease PLAN: Obtain 2D echo to assess cardiac structure and function Check orthostatics Begin telemetry monitoring to assess for any arrhythmias or AV blocks Resume home cardiac medications Neurology consulted. Await recommendations Further recommendations pending patient's course Nurse practitioner note has been reviewed by physician. Signing provider agrees with the documented findings, assessment, and plan of care. Past Medical History Past Medical History: COPD, GERD/Reflux, Hyperlipidemia, Hypertension, Myocardial Infarction ([place]) Additional Past Medical History / Comment(s): DIVERTICULITIS, restless leg syndrome, Last Myocardial Infarction Date:: 2004 History of Any Multi-Drug Resistant Organisms: None Reported Past Surgical History: Bowel Resection, Coronary Bypass/CABG, Heart Catheterization Additional Past Surgical History / Comment(s): CABG 2005-3 vessel, colostomy/later reversal, Past Anesthesia/Blood Transfusion Reactions: No Reported Reaction Past Psychological History: Anxiety Smoking Status: Former smoker Past Alcohol Use History: None Reported Additional Past Alcohol Use History / Comment(s): quit smoking 3-4 yrs ago, started smoking age 17, 1/2 PPD Past Drug Use History: None Reported - Past Family History Mother Family Medical History: Cancer Additional Family Medical History / Comment(s): brain Father Family Medical History: No Reported History Additional Family Medical History / Comment(s): FROM OLD AGE AT 89 Medications and Allergies Home Medications Medication Instructions Recorded Confirmed Type Atorvastatin Calcium [Lipitor] 40 mg PO HS 12/30/14 05/01/21 History ALPRAZolam [Xanax] 0.25 mg PO TID #21 tab 11/14/15 05/01/21 Rx Clopidogrel [Plavix] 75 mg PO DAILY 12/22/15 05/01/21 History Isosorbide Mononitrate ER [Imdur] 30 mg PO DAILY 12/22/15 05/01/21 History hydrALAZINE HCL [Apresoline] 50 mg PO TID 12/22/15 05/01/21 History Aspirin EC [Ecotrin Low Dose] 81 mg PO DAILY 02/21/21 05/01/21 History Montelukast [Singulair] 10 mg PO DAILY 02/21/21 05/01/21 History Omeprazole 20 mg PO DAILY 02/21/21 05/01/21 History Naproxen 500 mg PO BID 05/01/21 05/01/21 History Pregabalin [Lyrica] 75 mg PO BID 05/01/21 05/01/21 History Allergies Allergy/AdvReac Type Severity Reaction Status Date / Time Iodinated Contrast Media Allergy Dyspnea Verified 05/01/21 13:21 [Iodinated Contrast- Oral and IV Dye] morphine AdvReac Wheezing Verified 05/01/21 13:21 Physical Exam Vitals: Vital Signs Temp Pulse Pulse Pulse Resp BP BP 05/02/21 07:00 97.9 F 57 L 18 155/79 05/02/21 02:00 98.2 F 65 17 135/76 05/01/21 18:32 97.8 F 72 18 172/69 05/01/21 18:05 98 F 64 18 146/77 05/01/21 17:00 64 18 146/77 05/01/21 13:15 64 18 126/70 05/01/21 11:13 98 F 71 18 173/93 Pulse Ox 05/02/21 07:00 98 05/02/21 02:00 97 05/01/21 18:32 99 05/01/21 18:05 96 05/01/21 17:00 96 05/01/21 13:15 97 05/01/21 11:13 98 Intake and Output 05/01/21 05/02/21 05/02/21 22:59 06:59 14:59 Output Total 125 600 Balance -125 -600 Output: Urine 125 600 Other: # Voids 1 2 Weight 68.039 kg Results 05/01/21 11:37 05/01/21 11:37 Cardiac Enzymes 05/01/21 05/01/21 Range/Units 11:37 11:37 AST 17 (17-59) U/L Troponin I <0.012 (0.000-0.034) ng/mL CBC 05/01/21 Range/Units 11:37 WBC 7.4 (3.8-10.6) k/uL RBC 4.66 (4.30-5.90) m/uL Hgb 14.3 (13.0-17.5) gm/dL Hct 44.3 (39.0-53.0) % Plt Count 203 (150-450) k/uL Comprehensive Metabolic Panel 05/01/21 Range/Units 11:37 Sodium 138 (137-145) mmol/L Potassium 4.2 (3.5-5.1) mmol/L Chloride 109 H (98-107) mmol/L Carbon Dioxide 22 (22-30) mmol/L BUN 30 H (9-20) mg/dL Creatinine 1.91 H (0.66-1.25) mg/dL Glucose 95 (74-99) mg/dL Calcium 9.2 (8.4-10.2) mg/dL AST 17 (17-59) U/L ALT 14 (4-49) U/L Alkaline Phosphatase 89 (38-126) U/L Total Protein 6.5 (6.3-8.2) g/dL Albumin 3.9 (3.5-5.0) g/dL Current Medications Generic Name Dose Route Start Last Admin Trade Name Freq PRN Reason Stop Dose Admin Alprazolam 0.25 mg 05/01/21 22:00 05/01/21 20:45 Alprazolam 0.25 Mg Tab PO 0.25 mg TID [facility] Administration Aspirin 81 mg 05/02/21 09:00 Aspirin 81 Mg PO DAILY [facility] Atorvastatin Calcium 40 mg 05/01/21 21:00 05/01/21 19:56 Atorvastatin 40 Mg Tab PO 40 mg HS BJ Administration Clopidogrel Bisulfate 75 mg 05/02/21 09:00 Clopidogrel 75 Mg Tab PO DAILY BJ Hydralazine HCl 50 mg 05/01/21 22:00 05/01/21 19:57 Hydralazine Hcl 50 Mg Tab PO 50 mg TID BJ Administration Sodium Chloride 1,000 mls @ 75 mls/hr 05/01/21 23:15 05/02/21 01:01 Saline 0.9% IV 75 mls/hr .[id number] BJ Administration Isosorbide Mononitrate 30 mg 05/02/21 09:00 Isosorbide Mononitrate Er 30 Mg Tab.Er.24h PO DAILY BJ Montelukast Sodium 10 mg 05/02/21 09:00 Montelukast 10 Mg Tab PO DAILY BJ Naloxone HCl 0.2 mg 05/01/21 14:30 Naloxone 0.4 Mg/Ml 1 Ml Vial IV Q2M PRN Opioid Reversal Pantoprazole Sodium 40 mg 05/02/21 09:00 Pantoprazole 40 Mg Tablet PO DAILY BJ Pregabalin 75 mg 05/01/21 21:00 05/01/21 19:56 Pregabalin 75 Mg Cap PO 75 mg BID BJ Administration Intake and Output 05/01/21 05/02/21 05/02/21 22:59 06:59 14:59 Output Total 125 600 Balance -125 -600 Output: Urine 125 600 Other: # Voids 1 2 Weight 68.039 kg 05/01/21 11:37 05/01/21 11:37
[2021-05-02 09:41] LABS: Basophils # (A) 0.11 X 10*3/uL (0.00-0.10); Basophils % (A) 1.6 %; Eosinophils # (A) 0.24 X 10*3/uL (0.04-0.35); Eosinophils % (A) 3.5 %; HCT 40.5 % (39.6-50.0); HGB 12.8 g/dL (13.0-17.0); Lymphocytes # (A) 1.91 X 10*3/uL (0.90-5.00); Lymphocytes % (A) 28.2 %; MCH 29.9 pg (27.0-32.0); MCHC 31.6 g/dL (32.0-37.0); MCV 94.6 fL (80.0-97.0); Mean Platelet Volume 10.7 fL (9.5-12.2); Monocytes # (A) 0.46 X 10*3/uL (0.20-1.00); Monocytes % (A) 6.8 %; Neutrophils # (A) 3.95 X 10*3/uL (1.80-7.70); Neutrophils % (A) 58.3 %; Platelet Count 177 X 10*3/uL (140-440); RBC 4.28 X 10*6/uL (4.40-5.60); WBC 6.78 X 10*3/uL (4.50-10.00)
--- NOTE | 2021-05-02 10:46 | P.CNNES ---
History of Present Illness Consult date: 05/02/21 Requesting physician: Gerardo Quiros Reason for Consult: Dizziness/Neuropathy History of Present Illness: Patient is a 80-year-old male came to the hospital yesterday at 11:10 AM for evaluation of dizziness, lightheadedness and paresthesias in the body. Patient states that 2-3 weeks ago he developed paresthesias involving his body, involving the trunk, and some in the arms and legs, however not involving the face. He also noticed lightheadedness, dizziness, which she describes as "cannot get balance together", denies spinning sensation. This dizziness would occur when he is sitting, laying or standing, and positional change does not make it worse. The symptoms have been present all the time throughout the day. He is also noticing some tremulousness of his hands. He denies any neck pain or any low back pain or any problem with bowel or bladder control issues. He feels the legs are weak bilaterally. Patient states about 2 weeks ago he had an episode of transient diplopia when he was watching TV. He was seeing double TV, double curtains, and the symptoms resolved within 2-3 minutes. He denied any slurred speech or any facial droop. At present he has no eye symptoms except his eyes water a lot. No diplopia at this time. Patient states that he has received Moderna vaccine 2 months ago. Vital signs on arrival blood pressure 173/93, pulse rate 71 temperature 98.0. The blood pressure did improve subsequently to 156/80. EKG shows normal sinus rhythm, right bundle branch block. Carotid Doppler revealed mild atheromatous plaquing without significant flow limiting stenosis. Computed tomography scan of head showed degenerative and nonspecific white matter changes most typical remote white matter ischemia. If concern for acute ischemia correlate with MRI as clinically warranted. Craniocervical junction demonstrates low lying cerebellar tonsils at the level of foramen magnum. Carotid Doppler revealed mild atheromatous plaquing without significant flow limiting stenosis. Antegrade flow in both vertebral arteries. Computed tomography scan of the chest showed COPD with basilar atelectasis favored over infiltrate. Coronary artery calcification. Cholelithiasis. Intramuscular lipoma posterior right paraspinal musculature measuring 3.3 cm correlate with MRI as clinically warranted. Patient's blood test shows normal CBC, normal electrolytes, BUN 30, creatinine 1.91. Hepatic panel is normal troponin negative, UA negative, jones virus PCR negative. Patient denies diabetes. He does have hypertension. No previous history of strokes or TIA. He smoked half pack per day for 10 years, quit 3 years ago. Patient's home medications include aspirin 81 mg, Plavix 75 mg, Lipitor 40 mg besides other medications that he takes. He states he is compliant with the medication, does not miss a dose. Review of Systems As mentioned above in HPI. All other review of systems reviewed are unremarkable. Denies any chest pain, shortness of breath, wheezing or cough. Denies any fever or chills. No rash. No neck or back pain. Past Medical History Past Medical History: COPD, GERD/Reflux, Hyperlipidemia, Hypertension, Myocardial Infarction ([place]) Additional Past Medical History / Comment(s): DIVERTICULITIS, restless leg syndrome, Last Myocardial Infarction Date:: 2004 History of Any Multi-Drug Resistant Organisms: None Reported Past Surgical History: Bowel Resection, Coronary Bypass/CABG, Heart Catheterizat ion Additional Past Surgical History / Comment(s): CABG 2004-3 vessel, colo stomy/later reversal, Past Anesthesia/Blood Transfusion Reactions: No Reported Reaction Past Psychological History: Anxiety Smoking Status: Former smoker Past Alcohol Use History: None Reported Additional Past Alcohol Use History / Comment(s): quit smoking 3-4 yrs ago, started smoking age 17, 1/2 PPD Past Drug Use History: None Reported - Past Family History Mother Family Medical History: Cancer Additional Family Medical History / Comment(s): brain Father Family Medical History: No Reported History Additional Family Medical History / Comment(s): FROM OLD AGE AT 89 Medications and Allergies Home Medications Medication Instructions Recorded Confirmed Type Atorvastatin Calcium [Lipitor] 40 mg PO HS 12/30/14 05/01/21 History ALPRAZolam [Xanax] 0.25 mg PO TID #21 tab 11/14/15 05/01/21 Rx Clopidogrel [Plavix] 75 mg PO DAILY 12/22/15 05/01/21 History Isosorbide Mononitrate ER [Imdur] 30 mg PO DAILY 12/22/15 05/01/21 History hydrALAZINE HCL [Apresoline] 50 mg PO TID 12/22/15 05/01/21 History Aspirin EC [Ecotrin Low Dose] 81 mg PO DAILY 02/21/21 05/01/21 History Montelukast [Singulair] 10 mg PO DAILY 02/21/21 05/01/21 History Omeprazole 20 mg PO DAILY 02/21/21 05/01/21 History Naproxen 500 mg PO BID 05/01/21 05/01/21 History Pregabalin [Lyrica] 75 mg PO BID 05/01/21 05/01/21 History Allergies Allergy/AdvReac Type Severity Reaction Status Date / Time Iodinated Contrast Media Allergy Dyspnea Verified 05/01/21 13:21 [Iodinated Contrast- Oral and IV Dye] morphine AdvReac Wheezing Verified 05/01/21 13:21 Physical Examination - Vital Signs Vital Signs: Vital Signs Temp Pulse Pulse Pulse Resp BP BP 05/02/21 08:10 77 05/02/21 08:08 72 157/80 05/02/21 08:06 61 05/02/21 07:00 97.9 F 57 L 18 05/02/21 02:00 98.2 F 65 17 05/01/21 18:32 97.8 F 72 18 05/01/21 18:05 98 F 64 18 146/77 05/01/21 17:00 64 18 146/77 05/01/21 13:15 64 18 126/70 05/01/21 11:13 98 F 71 18 173/93 BP BP BP Pulse Ox 05/02/21 08:10 156/80 05/02/21 08:08 05/02/21 08:06 150/78 05/02/21 07:00 155/79 98 05/02/21 02:00 135/76 97 05/01/21 18:32 172/69 99 05/01/21 18:05 96 05/01/21 17:00 96 05/01/21 13:15 97 05/01/21 11:13 98 Intake and Output 05/01/21 05/02/21 05/02/21 22:59 06:59 14:59 Output Total 125 600 Balance -125 -600 Output: Urine 125 600 Other: # Voids 1 2 Weight 68.039 kg Patient is an elderly male, in no acute distress. Patient is alert awake oriented to time place and person. Speech and language functions are normal. Attention, concentration and fund of knowledge is a dequate. On cranial examination, pupils are round and reacting to light, visual hutchinson are full on confrontation, extraocular muscles are intact with no nystagmus. Face is symmetric, tongue protrudes to the midline. Palatal elevation and sensation normal, hearing and shoulder shrug normal, facial sensation normal. Shoulder shrug normal. On muscle strength testing, there is no pronator drift and the strength is normal in arms and legs distally and proximally, except right hip flexion which is 5-related to some hip issues. Deep tendon reflexes are (right/left) biceps 2/1+, brachioradialis 2/1+, knee 1+2/2+3, ankles 1+/2, and plantars are downgoing bilaterally. Sensory to touch is equal with no neglect. Cerebellar function showed no ataxia for [id number] testing. No dysdiadochokinesia. Tone and bulk of muscles normal. Gait normal. On general examination, there is no carotid bruit or murmur, S1-S2 audible. Abdomen is soft nontender. Chest is clear. Peripheral pulses are present. No edema. Results - Laboratory Findings CBC and BMP: 05/02/21 04:50 05/01/21 11:37 Abnormal Lab Findings: Abnormal Labs 05/01/21 11:37 Chloride 109 H BUN 30 H Creatinine 1.91 H Assessment and Plan Assessment: * Dizziness/imbalance, paresthesias of arms and legs, unclear etiology. Exam is relatively nonfocal except for somewhat asymmetric reflexes. Differential diagnosis is between cerebral ischemia, cervical spinal issues, versus metabolic/nutritional deficiencies. Patient denies any significant neck pain or any signs of myelopathy. * Hypertension * Coronary artery disease * X tobacco use Plan: * Recommend MRI of the brain and cervical spine. Patient states he has some wire in the body that prevents him getting an MRI. He was told that he can never have MRI of the brain. * 2-D echo has been completed, results pending. We will review the results. * Continue dual antiplatelet medications and statins. * Check B12, folate, TSH, lipid panel and hemoglobin A1c. * Telemetry monitoring. * Cardiology also on board. * We will follow. Thank you for the consult.
[2021-05-02 10:48] LABS: Folate, Serum 5.7 ng/mL (4.40-31.00)
[2021-05-02 11:24] LABS: African American GFR (CKD) 40.6 (60.0-200.0); Albumin 3.8 g/dL (3.8-4.9); Albumin/Globulin Ratio 2.34 (1.60-3.17); Anion Gap 12.4 mmol/L (10.00-18.00); BUN/Creat Ratio 16.46 Ratio (12.00-20.00); Blood Urea Nitrogen 29.3 mg/dL (9.0-27.0); Calcium 8.6 mg/dL (8.7-10.3); Carbon Dioxide 19.8 mmol/L (20.0-27.5); Globulin 1.6 g/dL (1.6-3.3); Potassium 4.7 mmol/L (3.5-5.5); Total Bilirubin 0.3 mg/dL (0.30-1.20); Total Protein 5.4 g/dL (6.2-8.2)
--- NOTE | 2021-05-02 12:00 | ECHOF ---
Referral Reason:LV function, dizziness MEASUREMENTS -------- HEIGHT: 167.6 cm WEIGHT: 68.0 kg BP: 155/79 RVIDd: 3.4 cm (< 3.3) IVSd: 1.3 cm (0.6 - 1.1) LVIDd: 4.4 cm (3.9 - 5.3) LVPWd: 1.4 cm (0.6 - 1.1) IVSs: 2.1 cm LVIDs: 2.7 cm LVPWs: 1.6 cm LA Diam: 3.6 cm (2.7 - 3.8) LAESV Index (A-L): 17.54 ml/m Ao Diam: 3.4 cm (2.0 - 3.7) AV Cusp: 2.2 cm (1.5 - 2.6) MV EXCURSION: 14.230 mm (> 18.000) MV EF SLOPE: 102 mm/s (70 - 150) EPSS: 0.6 cm MV E Justus: 1.09 m/s MV DecT: 236 ms MV A Justus: 1.00 m/s MV E/A Ratio: 1.09 RAP: 5.00 mmHg RVSP: 26.68 mmHg FINDINGS -------- Resting bradycardia (HR<60bpm). This was a technically adequate study. The left ventricular size is normal. There is moderate concentric left ventricular hypertrophy. O verall left ventricular systolic function is normal with, an EF between 60 - 65 %. The right ventricle is mildly enlarged. Normal LA size by volume 22+/-6 ml/m2. The right atrium is normal in size. Interatrial and interventricular septum intact. The aortic valve is trileaflet, and appears structurally normal. No aortic stenosis or regurgitation. The mitral valve is normal. Mild tricuspid regurgitation present. Right ventricular systolic pressure is normal at < 35 mmHg. There is no pulmonic regurgitation present. The aortic root size is normal. Normal inferior vena cava with normal inspiratory collapse consistent with estimated right atrial pre ssure of 5 mmHg. There is no pericardial effusion. CONCLUSIONS -------- 1. The left ventricular size is normal. 2. There is moderate concentric left ventricular hypertrophy. 3. Overall left ventricular systolic function is normal with, an EF between 60 - 65 %. 4. The right ventricle is mildly enlarged. 5. The aortic valve is trileaflet, and appears structurally normal. No aortic stenosis or regurgitati on. 6. Mild tricuspid regurgitation present. 7. There is no pericardial effusion. AIRLINE MANAGERIAL SUPERVISOR: Nae Ventura RDCS
[2021-05-02] MEDS ORDERED: CYANOCOBALAMIN 1,000 MCG/ML 1 ML VIAL IM ONE (14:32)
[2021-05-02] MEDS ORDERED: FOLIC ACID 1 MG TAB PO SCH (14:45)
[2021-05-02 15:05] VITALS: BP 110/62; TEMP 97.6
[2021-05-02 18:27] LABS: Chol/HDL Ratio 2.74 Ratio; LDL Cholesterol,Calculated 34.8 mg/dL (0.0-131.0)
[2021-05-03] MEDS ORDERED: CYANOCOBALAMIN 500 MCG TAB PO SCH (09:00)
== END 2021-05-02 18:10 | disposition home or self-care (01) ==
LOC: EC 11:10 → 6NMEDSUR 14:38
PROVIDERS: ADMIT Family Medicine; ATTEND Family Medicine
DX: R42 Dizziness and giddiness (principal); G62.9 Polyneuropathy, unspecified; I12.9 Hypertensive chronic kidney disease with stage 1 through stage 4 chronic kidney disease, or unspecified chronic kidney disease; N18.9 Chronic kidney disease, unspecified; J44.9 Chronic obstructive pulmonary disease, unspecified; I45.10 Unspecified right bundle-branch block; R26.89 Other abnormalities of gait and mobility; I25.10 Atherosclerotic heart disease of native coronary artery without angina pectoris; I07.1 Rheumatic tricuspid insufficiency; I25.2 Old myocardial infarction; R51.9 Headache, unspecified; R53.1 Weakness; F41.9 Anxiety disorder, unspecified; G25.81 Restless legs syndrome; E78.5 Hyperlipidemia, unspecified; K21.9 Gastro-esophageal reflux disease without esophagitis; H53.2 Diplopia; I67.82 Cerebral ischemia; I67.2 Cerebral atherosclerosis; R94.4 Abnormal results of kidney function studies; K80.20 Calculus of gallbladder without cholecystitis without obstruction; D17.9 Benign lipomatous neoplasm, unspecified; J34.2 Deviated nasal septum; K43.9 Ventral hernia without obstruction or gangrene; Z20.822 Contact with and (suspected) exposure to COVID-19; Z79.02 Long term (current) use of antithrombotics/antiplatelets; Z79.82 Long term (current) use of aspirin; Z79.899 Other long term (current) drug therapy; Z79.1 Long term (current) use of non-steroidal anti-inflammatories (NSAID); Z91.041 Radiographic dye allergy status; Z88.5 Allergy status to narcotic agent; Z95.1 Presence of aortocoronary bypass graft; Z90.49 Acquired absence of other specified parts of digestive tract; Z87.19 Personal history of other diseases of the digestive system; Z87.891 Personal history of nicotine dependence; Z80.8 Family history of malignant neoplasm of other organs or systems
CPT/HCPCS: 96372; 99285; 36415; 93005; 93306; 83921; 80061; 80053 ×2; 84443; 82607; 82746; 83735; 84484 ×2; 85025 ×2; 81003; 83036; 87635; 93880; 70450; 71250; G0378 ×2; J3420

== ENCOUNTER 2021-12-14 18:31 | Emergency (ER) | payer MEDICARE ==
[2021-12-14 18:51] VITALS: BP 125/71; PULSE 84; RESP 18; TEMP 98.1
[2021-12-14] MEDS ORDERED: LIDOCAINE 1% INJ 10MG/ML (5 ML VIAL-PF) SQ ONE (19:04)
[2021-12-14] MEDS ORDERED: BACITRACIN OINT 1 EACH PACKET TOPICAL ONE (19:30)
--- NOTE | 2021-12-14 19:34 | ED ---
General Adult HPI - General Chief complaint: Skin/Abscess/Foreign Body Stated complaint: fish hook in left leg Time Seen by Provider: 12/14/21 19:00 Source: patient, family, RN notes reviewed, old records reviewed Mode of arrival: ambulatory Limitations: no limitations - History of Present Illness Initial comments: Patient presents with two fish hooks in his left leg. State sat down on it about one hour prior to arrival. Patient denies any other injuries. -: hour(s) (1) Location: left, lower extremity (upper leg) Severity scale (1-10): 3 Consistency: constant Associated Symptoms: denies other symptoms Treatments Prior to Arrival: none - Related Data Home Medications Medication Instructions Recorded Confirmed Atorvastatin Calcium [Lipitor] 40 mg PO HS 12/30/14 05/01/21 Clopidogrel [Plavix] 75 mg PO DAILY 12/22/15 05/01/21 Isosorbide Mononitrate ER [Imdur] 30 mg PO DAILY 12/22/15 05/01/21 hydrALAZINE HCL [Apresoline] 50 mg PO TID 12/22/15 05/01/21 Aspirin EC [Ecotrin Low Dose] 81 mg PO DAILY 02/21/21 05/01/21 Montelukast [Singulair] 10 mg PO DAILY 02/21/21 05/01/21 Omeprazole 20 mg PO DAILY 02/21/21 05/01/21 Naproxen 500 mg PO BID 05/01/21 05/01/21 Pregabalin [Lyrica] 75 mg PO BID 05/01/21 05/01/21 Previous Rx's Medication Instructions Recorded ALPRAZolam [Xanax] 0.25 mg PO TID #21 tab 11/14/15 Cephalexin [Keflex] 500 mg PO Q6HR 2 Days #8 cap 12/14/21 Allergies Allergy/AdvReac Type Severity Reaction Status Date / Time Iodinated Contrast Media Allergy Dyspnea Verified 12/14/21 18:51 [Iodinated Contrast- Oral and IV Dye] morphine AdvReac Wheezing Verified 12/14/21 18:51 Review of Systems ROS Statement: Those systems with pertinent positive or pertinent negative responses have been documented in the HPI. ROS Other: All systems not noted in ROS Statement are negative. Past Medical History Past Medical History: COPD, GERD/Reflux, Hyperlipidemia, Hypertension, Myocardial Infarction ([place]) Additional Past Medical History / Comment(s): DIVERTICULITIS, restless leg syndrome, Last Myocardial Infarction Date:: 2004 History of Any Multi-Drug Resistant Organisms: None Reported Past Surgical History: Bowel Resection, Coronary Bypass/CABG, Heart Catheterization Additional Past Surgical History / Comment(s): CABG 2005-3 vessel, colostomy/later reversal, Past Anesthesia/Blood Transfusion Reactions: No Reported Reaction Past Psychological History: Anxiety Smoking Status: Former smoker Past Alcohol Use History: None Reported Past Drug Use History: None Reported - Past Family History Mother Family Medical History: Cancer Additional Family Medical History / Comment(s): brain Father Family Medical History: No Reported History Additional Family Medical History / Comment(s): FROM OLD AGE AT 89 General Exam Limitations: no limitations General appearance: alert, in no apparent distress Head exam: Present: atraumatic Eye exam: Absent: scleral icterus, conjunctival injection Respiratory exam: Absent: respiratory distress, accessory muscle use Cardiovascular Exam: Present: regular rate Extremities exam: Present: normal capillary refill. Absent: pedal edema Neurological exam: Present: alert, oriented X3, normal gait Psychiatric exam: Present: normal affect, normal mood Skin exam: Present: warm, dry, other (two fish hooks in the left posterior thigh). Absent: cyanosis, diaphoretic Course Vital Signs 12/14/21 18:48 Temperature 98.1 F Pulse Rate 84 Respiratory 18 Rate Blood Pressure 125/71 O2 Sat by Pulse 96 Oximetry Medical Decision Making - Medical Decision Making Fish hooks removed from patient's left leg after anesthetized with lidocaine. B acitracin dressing was applied. He was placed on antibiotics for 2 days prophylactically. He was directed to watch for signs of infection. Follow-up with his primary care doctor next week as needed. Return to the emergency room with any new or concerning symptoms. Case discussed with Dr. Nagel Disposition Clinical Impression: Fish hook in lower leg Disposition: HOME SELF-CARE Condition: Good Instructions (If sedation given, give patient instructions): Puncture Wound (ED ) Additional Instructions: Keep wound clean with a Neosporin bandage for the next 2 days. Take Keflex as prescribed to prevent infection. Return to the emergency room if any new or concerning symptoms. Prescriptions: Cephalexin [Keflex] 500 mg PO Q6HR 2 Days #8 cap Is patient prescribed a controlled substance at d/c from ED?: No Referrals: None,Stated [REFERRING] - 1-2 days Time of Disposition: 19:33
== END 2021-12-14 19:48 | disposition home or self-care (01) ==
LOC: EC 18:31
DX: S80.852A Superficial foreign body, left lower leg, initial encounter (principal); J44.9 Chronic obstructive pulmonary disease, unspecified; E78.5 Hyperlipidemia, unspecified; E03.9 Hypothyroidism, unspecified; I10 Essential (primary) hypertension; I25.2 Old myocardial infarction; Z91.041 Radiographic dye allergy status; Z88.5 Allergy status to narcotic agent; F41.9 Anxiety disorder, unspecified; Z72.89 Other problems related to lifestyle; Z79.82 Long term (current) use of aspirin; K21.9 Gastro-esophageal reflux disease without esophagitis; Z79.899 Other long term (current) drug therapy; Z87.891 Personal history of nicotine dependence
CPT/HCPCS: 99283; J2001

== ENCOUNTER → 2022-02-01 | Outpatient (CLI) | payer MEDICARE ==
--- NOTE | 2022-02-01 15:33 | US ---
EXAMINATION TYPE: US kidneys/renal and bladder DATE OF EXAM: 02/01/2022 COMPARISON: Renal ultrasound July 23, 2019 CLINICAL HISTORY: N18.30 Chronic kidney disease, stage 3 unspecified. CKD EXAM MEASUREMENTS: Right Kidney: 8.2 x 4.0 x 4.2 cm Left Kidney: 9.3 x 3.9 x 3.3 cm Right Kidney: small in size. cystic area lower pole = 1.9 x 1.9 x 2.1cm Left Kidney: no evidence of hydronephrosis Bladder: not fully distended Bilateral Jets seen: no Cortical thinning and increased cortical echogenicity in both kidneys. Incidental 1.9 cm thin-walled cyst lower pole right kidney.. The urinary bladder is not greatly distended. Bilateral ureteral jet s are not seen. IMPRESSION: Evidence of chronic medical renal disease. No hydronephrosis seen bilaterally.
== END | disposition home or self-care (01) ==
LOC: RADUSWWP 14:39
PROVIDERS: ATTEND Internal Medicine Nephrology
DX: N18.30 Chronic kidney disease, stage 3 unspecified (principal)
CPT/HCPCS: 76770

== ENCOUNTER 2022-02-05 12:43 | Day surgery (SDC) | payer MEDICARE ==
[2022-02-01 16:01] VITALS: BMI 25.9
[~2022-02-05 12:43] MED LIST changes: +LACTATED RINGERS 1,000 ML IV SCH; +LIDOCAINE 1% (10MG/ML) FOR IV START INTRADERMA PRN; -REGADENOSON 0.4 MG/5 ML SYRINGE IV ONE
[2022-02-05 13:21] VITALS: RESP 16; TEMP 97.9
[2022-02-05 13:23] LABS: Glucose,Whole Blood 97 mg/dL (70-110)
[2022-02-05] MEDS ORDERED: PROPOFOL 10 MG/ML 20 ML VIAL IV ONE (14:40)
[2022-02-05] MEDS ORDERED: LIDOCAINE 2% INJ 20 MG/ML (2 ML VIAL) ONE (14:40)
--- NOTE | 2022-02-05 14:47 | P.GSHP ---
History of Present Illness H&P Date: 02/05/22 Chief Complaint: GERD This is an 7-year-old male with history of GERD. Patient presents today for EGD. Past Medical History Past Medical History: COPD, GERD/Reflux, Hearing Disorder / Deafness, Hyperlipidemia, Hypertension, Myocardial Infarction (MD), Osteoarthritis (OA), Sleep Apnea/CPAP/BIPAP Additional Past Medical History / Comment(s): DIVERTICULITIS, restless leg syndrome, kidney disease, CPAP use, hard of hearing. Last Myocardial Infarction Date:: 2004 History of Any Multi-Drug Resistant Organisms: None Reported Past Surgical History: Bowel Resection, Coronary Bypass/CABG, Heart Catheterization Additional Past Surgical History / Comment(s): CABG 2004- vessel, colostomy/later reversal, colonsocopy. Past Anesthesia/Blood Transfusion Reactions: No Reported Reaction Past Psychological History: Anxiety Smoking Status: Former smoker Past Alcohol Use History: None Reported Additional Past Alcohol Use History / Comment(s): Quit smoking 3-4 yrs ago, started smoking age 17, 1/2 PPD. Past Drug Use History: None Reported - Past Family History Mother Family Medical History: Cancer Additional Family Medical History / Comment(s): Brain cancer. Father Family Medical History: No Reported History Additional Family Medical History / Comment(s): FROM OLD AGE AT 89 Brother(s) Family Medical History: Cancer Medications and Allergies Home Medications Medication Instructions Recorded Confirmed Type Atorvastatin Calcium [Lipitor] 40 mg PO HS 12/30/14 02/05/22 History ALPRAZolam [Xanax] 0.25 mg PO TID #21 tab 11/14/15 02/05/22 Rx Clopidogrel [Plavix] 75 mg PO DAILY 12/22/15 02/05/22 History Isosorbide Mononitrate ER [Imdur] 30 mg PO QAM 12/22/15 02/05/22 History hydrALAZINE HCL [Apresoline] 50 mg PO TID 12/22/15 02/05/22 History Aspirin EC [Ecotrin Low Dose] 81 mg PO DAILY 02/21/21 02/05/22 History Montelukast [Singulair] 10 mg PO DAILY 02/21/21 02/05/22 History Omeprazole 20 mg PO QAM 02/21/21 02/05/22 History Ascorbic Acid [Vitamin C] 500 mg PO DAILY 02/01/22 02/05/22 History Cholecalciferol [Vitamin D3 (25 50 mcg PO DAILY 02/01/22 02/05/22 History Mcg = 1000 Iu)] Empagliflozin [Jardiance] 25 mg PO DAILY 02/01/22 02/05/22 History Furosemide [Lasix] 20 mg PO Q48H 02/01/22 02/05/22 History Zinc Gluconate [Zinc] 50 mg PO DAILY 02/01/22 02/05/22 History Allergies Allergy/AdvReac Type Severity Reaction Status Date / Time Iodinated Contrast Media Allergy Dyspnea Verified 02/05/22 13:14 [Iodinated Contrast- Oral and IV Dye] morphine AdvReac Wheezing Verified 02/05/22 13:14 Surgical - Exam Vital Signs Temp Pulse Resp BP Pulse Ox 97.9 F 66 16 170/79 95 02/05/22 13:20 02/05/22 13:20 02/05/22 13:20 02/05/22 13:20 02/05/22 13:20 - General well developed, well nourished, no distress - Eyes PERRL - ENT normal pinna - Neck no masses - Respiratory normal expansion - Cardiovascular Rhythm: regular - Abdomen Abdomen: soft, non tender Assessment and Plan Assessment: GERD. We'll perform EGD.
--- NOTE | 2022-02-05 14:53 | P.OP ---
Date of Procedure: 02/05/22 Preoperative Diagnosis: GERD Postoperative Diagnosis: Gastritis Inflamed cardia of stomach Mild esophagitis Small sliding hiatal hernia Procedure(s) Performed: EGD Anesthesia: MAC Surgeon: Luke Aguillon Pathology: other (Antrum, cardia, esophagus) Condition: stable Disposition: PACU Description of Procedure: Patient's placed on the endoscopy table in the lateral position. He received IV sedation. The gastroscope placed oropharynx passed in the esophagus and stomach. Scope the pylorus. The first and second portion of the duodenum appeared normal. Scope summer back the antrum this was mildly inflamed. A biopsies performed. Scope was unretroflexed and remainder of the stomach was examined. There appeared to be inflammatory changes the cardia of the stomach this area was biopsied. There. He also a small sliding hiatal hernia. The GE junction was at 38 cm. The distal esophagus appeared inflamed and a biopsies performed. The proximal esophagus appeared normal. Scope withdrawn for patient.
[2022-02-05 15:09] VITALS: PULSE 59
[2022-02-05] MEDS ORDERED: ACETAMINOPHEN TAB 325 MG TAB PO ONE (15:10)
[2022-02-05] MEDS ORDERED: ACETAMINOPHEN TAB 325 MG TAB ONE (15:11)
[2022-02-05 15:17] VITALS: BP 154/71
== END 2022-02-05 15:36 | disposition home or self-care (01) ==
LOC: ORWHC2ENDO 12:43
PROVIDERS: ATTEND Surgery
DX: K29.50 Unspecified chronic gastritis without bleeding (principal); K21.00 Gastro-esophageal reflux disease with esophagitis, without bleeding; J44.9 Chronic obstructive pulmonary disease, unspecified; E78.5 Hyperlipidemia, unspecified; I10 Essential (primary) hypertension; M19.90 Unspecified osteoarthritis, unspecified site; I25.2 Old myocardial infarction; G47.30 Sleep apnea, unspecified; H91.90 Unspecified hearing loss, unspecified ear; Z87.891 Personal history of nicotine dependence; Z95.5 Presence of coronary angioplasty implant and graft; Z91.041 Radiographic dye allergy status; Z88.6 Allergy status to analgesic agent; Z79.890 Hormone replacement therapy; Z79.899 Other long term (current) drug therapy; Z79.82 Long term (current) use of aspirin; Z79.891 Long term (current) use of opiate analgesic; N28.9 Disorder of kidney and ureter, unspecified; K44.9 Diaphragmatic hernia without obstruction or gangrene; K31.89 Other diseases of stomach and duodenum
CPT/HCPCS: 88305; 43239; J2704; J2001

== ENCOUNTER → 2022-02-09 | Outpatient (CLI) | payer MEDICARE ==
--- NOTE | 2022-02-09 10:34 | CT ---
EXAMINATION TYPE: CT abdomen pelvis wo con DATE OF EXAM: 02/09/2022 COMPARISON: 05/23/2017 HISTORY: BURNING ABD PAIN , BLACK STOOLS CT DLP: 493.3 mGycm Examination of the solid and hollow viscera is limited given the lack of contrast. FINDINGS: LUNG BASES: No evidence for nodule. No evidence for infiltrate. LIVER/GB: Small layering gallstones noted. No space-occupying hepatic lesion. PANCREAS: No pancreatic mass identified. No inflammatory process seen. SPLEEN: No evidence for splenomegaly. No intrasplenic lesions seen. ADRENALS: No adrenal nodules identified. No evidence for thickening. KIDNEYS: No evidence for renal mass. No nephrolithiasis. No hydronephrosis. BOWEL: Appendix has a normal appearance. No evidence of bowel obstruction. No inflammatory process. Lymph nodes: No evidence for adenopathy greater than 1 cm. Abdominal aorta: Atheromatous changes seen. Infrarenal abdominal aortic aneurysm measuring 3.4 cm AP dimension. Genital organs: No significant abnormality. Other: Midline ventral hernia noted measures 6.8 cm in transverse dimension by 2.5 cm AP dimension an d contains a segment of small bowel. No evidence for incarceration or strangulation at this time. Fat -containing anterior abdominal wall hernia to the left of midline measuring 2.9 cm. IMPRESSION: 1. Anterior abdominal wall hernias as noted above. No evidence for strangulation or incarceration. 2. Small layering gallstones. 3. Infrarenal abdominal aortic aneurysm
== END | disposition home or self-care (01) ==
LOC: RADCTMAIN 08:54
PROVIDERS: ATTEND Surgery
DX: K56.609 Unspecified intestinal obstruction, unspecified as to partial versus complete obstruction (principal)
CPT/HCPCS: 36415; 74176; 82565; 84520

== ENCOUNTER 2022-02-19 05:41 | Day surgery (SDC) | payer MEDICARE ==
[~2022-02-19 05:41] MED LIST changes: +ACETAMINOPHEN TAB 500 MG TAB PO PRN; +HEPARIN SODIUM,PORCINE/PF 5,000 UNIT/0.5 ML SYRINGE SQ PRN; -LACTATED RINGERS 1,000 ML IV SCH; -LIDOCAINE 1% (10MG/ML) FOR IV START INTRADERMA PRN
[2022-02-19] MEDS ORDERED: LIDOCAINE 1% (10MG/ML) FOR IV START INTRADERMA PRN (05:52)
[2022-02-19] MEDS ORDERED: fentaNYL (PF) 50 MCG/ML 2 ML AMP IV PRN (05:52)
[2022-02-19] MEDS ORDERED: LACTATED RINGERS 1,000 ML IV SCH (05:52)
[2022-02-19] MEDS ORDERED: ONDANSETRON 4 MG/2 ML VIAL IVP ONE (05:52)
[2022-02-19] MEDS ORDERED: LACTATED RINGERS 1,000 ML IV ONE ×4 (06:13→15:30)
[2022-02-19 06:23] LABS: Glucose,Whole Blood 84 mg/dL (70-110)
[2022-02-19 07:09] LABS: Basophils # (A) 0.1 k/uL (0-0.2); Basophils % (A) 2 %; Eosinophils # (A) 0.3 k/uL (0-0.7); Eosinophils % (A) 4 %; HCT 39.6 % (39.0-53.0); Lymphocytes % (A) 27 %; MCH 28.8 pg (25.0-35.0); MCHC 32.9 g/dL (31.0-37.0); MCV 87.7 fL (80.0-100.0); Mean Platelet Volume 8.4; Monocytes # (A) 0.5 k/uL (0-1.0); Monocytes % (A) 6 %; Neutrophils # (A) 4.3 k/uL (1.3-7.7); Neutrophils % (A) 60 %; Platelet Count 157 k/uL (150-450); RBC 4.51 m/uL (4.30-5.90); RDW 15.3 % (11.5-15.5); WBC 7.3 k/uL (3.8-10.6)
[2022-02-19 07:29] LABS: Calcium 8.8 mg/dL (8.4-10.2)
[2022-02-19 07:30] LABS: Potassium 4.7 mmol/L (3.5-5.1)
[2022-02-19] MEDS ORDERED: MIDAZOLAM 2 MG/2 ML VIAL IVP ONE (07:34)
[2022-02-19] MEDS ORDERED: fentaNYL (PF) 50 MCG/ML 2 ML AMP IVP ONE (07:35)
[2022-02-19] MEDS ORDERED: SODIUM CHLORIDE 0.9% (PF) 10 ML VIAL ONE (08:00)
[2022-02-19] MEDS ORDERED: LIDOCAINE 2% INJ 20 MG/ML (2 ML VIAL) ONE (08:00)
[2022-02-19] MEDS ORDERED: HYDROmorphone (PF) 1 MG/ML ONE (08:00)
[2022-02-19] MEDS ORDERED: PROPOFOL 10 MG/ML 20 ML VIAL IV ONE (08:00)
[2022-02-19] MEDS ORDERED: ROCURONIUM 10 MG/ML (5 ML VIAL) IV ONE (08:00)
[2022-02-19] MEDS ORDERED: NEOSTIGMINE 1 MG/ML 10 ML VIAL ONE (08:00)
[2022-02-19] MEDS ORDERED: SUCCINYLCHOLINE CHLORIDE 200 MG/10 ML VIAL IV ONE (08:00)
[2022-02-19] MEDS ORDERED: ROPIVACAINE 5 MG/ML 30 ML VIAL ONE (08:00)
[2022-02-19] MEDS ORDERED: GLYCOPYRROLATE 0.2 MG/ML 2 ML VIAL ONE (08:00)
[2022-02-19] MEDS ORDERED: fentaNYL (PF) 50 MCG/ML 2 ML AMP ONE (08:00)
--- NOTE | 2022-02-19 09:18 | P.ANPRN ---
Procedure Note - Anesthesia - Nerve Block Performed Bilateral Rectus Abdominis Time Out Performed: Yes (:33) Date of Procedure: 02/19/22 Procedure Start Time: Procedure Stop Time: : Location of Patient: PreOp Indication: Acute Post-Operative Pain, Requested by Surgeon (Pal) Sedation Type: Sedate with meaningful contact maintained Preparation: Sterile Prep Position: Supine Catheter: None Needle Types: Pajunk Needle Gauge: 21 Ultrasound used to visualize needle placement: Yes Ultrasound used to observe medication spread: Yes Injectate: 0.5% Ropivacaine (see comment for volume) (15cc+10ccPF Normal saline each side) Blood Aspirated: No Pain Paresthesia on Injection Noted: No Resistance on Injection: Normal Image Stored and Saved: Yes Events: Uneventful and Well Tolerated
[2022-02-19] MEDS ORDERED: NALOXONE 0.4 MG/ML 1 ML VIAL IV PRN (09:20)
[2022-02-19] MEDS ORDERED: ONDANSETRON 4 MG/2 ML VIAL IVP PRN (09:20)
[2022-02-19] MEDS ORDERED: HYDROcodone/APAP 5-325MG 1 EACH TAB PO PRN (09:20)
--- NOTE | 2022-02-19 09:20 | P.GSHP ---
History of Present Illness H&P Date: 02/19/22 Chief Complaint: Incarcerated incisional hernia Is an 7-year-old male who's developed an incarcerated incisional hernia. Patient presents today for open repair with mesh. Past Medical History Past Medical History: COPD, GERD/Reflux, Hyperlipidemia, Hypertension, Myocardial Infarction (VT) Additional Past Medical History / Comment(s): DIVERTICULITIS, restless leg syndrome, Last Myocardial Infarction Date:: 2004 History of Any Multi-Drug Resistant Organisms: None Reported Past Surgical History: Bowel Resection, Coronary Bypass/CABG, Heart Catheterization Additional Past Surgical History / Comment(s): CABG 2004- vessel, colostomy/later reversal, upper endoscopy 02/08 Past Anesthesia/Blood Transfusion Reactions: No Reported Reaction Smoking Status: Former smoker - Past Family History Mother Family Medical History: Cancer Additional Family Medical History / Comment(s): Brain cancer. Father Family Medical History: No Reported History Additional Family Medical History / Comment(s): FROM OLD AGE AT 89 Brother(s) Family Medical History: Cancer Medications and Allergies Home Medications Medication Instructions Recorded Confirmed Type Atorvastatin Calcium [Lipitor] 40 mg PO HS 12/30/14 02/15/22 History ALPRAZolam [Xanax] 0.25 mg PO TID #21 tab 11/14/15 02/15/22 Rx Clopidogrel [Plavix] 75 mg PO DAILY 12/22/15 02/15/22 History Isosorbide Mononitrate ER [Imdur] 30 mg PO QAM 12/22/15 02/15/22 History hydrALAZINE HCL [Apresoline] 50 mg PO TID 12/22/15 02/15/22 History Aspirin EC [Ecotrin Low Dose] 81 mg PO DAILY 02/21/21 02/15/22 History Montelukast [Singulair] 10 mg PO DAILY 02/21/21 02/15/22 History Omeprazole 20 mg PO QAM 02/21/21 02/15/22 History Ascorbic Acid [Vitamin C] 500 mg PO DAILY 02/01/22 02/15/22 History Cholecalciferol [Vitamin D3 (25 50 mcg PO DAILY 02/01/22 02/15/22 History Mcg = 1000 Iu)] Empagliflozin [Jardiance] 25 mg PO DAILY 02/01/22 02/15/22 History Furosemide [Lasix] 20 mg PO Q48H 02/01/22 02/15/22 History Zinc Gluconate [Zinc] 50 mg PO DAILY 02/01/22 02/15/22 History Allergies Allergy/AdvReac Type Severity Reaction Status Date / Time Iodinated Contrast Media Allergy Dyspnea Verified 02/15/22 10:37 [Iodinated Contrast- Oral and IV Dye] morphine AdvReac Wheezing Verified 02/15/22 10:37 Surgical - Exam Vital Signs Temp Pulse Resp BP Pulse Ox 98 F 57 L 18 138/68 98 02/19/22 06:11 02/19/22 06:11 02/19/22 06:11 02/19/22 06:11 02/19/22 06:11 - General well developed, well nourished, no distress - Eyes PERRL - ENT normal pinna - Neck no masses - Respiratory normal expansion - Cardiovascular Rhythm: regular - Abdomen Incisional hernia located near the umbilicus and old colostomy site. The hernia is incarcerated Abdomen: soft Results - Labs 02/19/22 06:48 02/19/22 06:48 Abnormal Lab Results - Last 24 Hours (Table) 02/19/22 Range/Units 06:48 Chloride 110 H (98-107) mmol/L Carbon Dioxide 20 L (22-30) mmol/L BUN 26 H (9-20) mg/dL Creatinine 1.95 H (0.66-1.25) mg/dL Diabetes panel 02/19/22 Range/Units 06:48 Sodium 140 (137-145) mmol/L Potassium 4.7 (3.5-5.1) mmol/L Chloride 110 H (98-107) mmol/L Carbon Dioxide 20 L (22-30) mmol/L BUN 26 H (9-20) mg/dL Creatinine 1.95 H (0.66-1.25) mg/dL Glucose 97 (74-99) mg/dL Calcium 8.8 (8.4-10.2) mg/dL Calcium panel 02/19/22 Range/Units 06:48 Calcium 8.8 (8.4-10.2) mg/dL Pituitary panel 02/19/22 Range/Units 06:48 Sodium 140 (137-145) mmol/L Potassium 4.7 (3.5-5.1) mmol/L Chloride 110 H (98-107) mmol/L Carbon Dioxide 20 L (22-30) mmol/L BUN 26 H (9-20) mg/dL Creatinine 1.95 H (0.66-1.25) mg/dL Glucose 97 (74-99) mg/dL Calcium 8.8 (8.4-10.2) mg/dL Adrenal panel 02/19/22 Range/Units 06:48 Sodium 140 (137-145) mmol/L Potassium 4.7 (3.5-5.1) mmol/L Chloride 110 H (98-107) mmol/L Carbon Dioxide 20 L (22-30) mmol/L BUN 26 H (9-20) mg/dL Creatinine 1.95 H (0.66-1.25) mg/dL Glucose 97 (74-99) mg/dL Calcium 8.8 (8.4-10.2) mg/dL Assessment and Plan Assessment: Incarcerated incisional hernia. We'll perform open repair with mesh.
--- NOTE | 2022-02-19 09:29 | P.OP ---
Date of Procedure: 02/19/22 Preoperative Diagnosis: Incarcerated incisional hernia Postoperative Diagnosis: Incarcerated incisional hernia Procedure(s) Performed: (Incarcerated incisional hernia with mesh Anesthesia: ROJAS Surgeon: Luke Aguillon Estimated Blood Loss (ml): 15 Pathology: other (Hernia sac) Condition: stable Disposition: PACU Operative Findings: Incisional hernia 15 x 10 cm in size with incarcerated omentum and bowel [place] Prolene mesh Description of Procedure: The patient's placed on the operative table in the supine position. He received general endotracheal tube anesthesia. His abdomen was prepped and draped usual fashion. A skin incision was made in the midline. Over top of the hernia. Using blunt sharp dissection with cautery the hernia sac was dissected free from the fascia. Hernia sac was opened. The incarcerated omentum and small bowel was placed back within the peritoneal cavity. The hernia sac was then divided with cautery to pathology. The fascial defect was then closed with [id number] Ethibond suture. This was then buttressed with 0- Stratafix suture. The mesh was then secured with secure strap tacker. A ADI drains placed over top the mesh and brought through separate stab incision in the right upper quadrant. #1 Vicryl was then used to close Owen's fascia. The skin was closed arianne. Patient top she will was sent to recovery room in stable condition.
[2022-02-19] MEDS ORDERED: HYDROmorphone 0.5 MG/0.5 ML SYRINGE IVP ONE (09:56)
[2022-02-19] MEDS: KETOROLAC 15 MG/ML 1 ML VIAL IVP SCH ×3 (10:01→23:16)
[2022-02-19] MEDS ORDERED: diphenhydrAMINE 50 MG/ML 1 ML VIAL IVP ONE (12:17)
[2022-02-19] MEDS ORDERED: ATORVASTATIN 40 MG TAB PO SCH (21:00)
[2022-02-19] MEDS: hydrALAZINE HCL 50 MG TAB PO SCH (21:12)
[2022-02-19] MEDS: ALPRAZolam 0.25 MG TAB PO SCH (21:12)
[2022-02-19] MEDS: ACETAMINOPHEN TAB 325 MG TAB PO PRN (21:20)
[2022-02-20] MEDS: KETOROLAC 15 MG/ML 1 ML VIAL IVP SCH ×2 (05:52→11:47)
[2022-02-20] MEDS ORDERED: PANTOPRAZOLE 40 MG TABLET PO SCH (07:30)
[2022-02-20] MEDS: ALPRAZolam 0.25 MG TAB PO SCH (08:10)
[2022-02-20] MEDS: hydrALAZINE HCL 50 MG TAB PO SCH (08:11)
[2022-02-20] MEDS: ACETAMINOPHEN TAB 325 MG TAB PO PRN (08:11)
[2022-02-20 08:28] VITALS: RESP 17
[2022-02-20] MEDS ORDERED: CLOPIDOGREL 75 MG TAB PO SCH (09:00)
[2022-02-20] MEDS ORDERED: FUROSEMIDE 20 MG TAB PO SCH (09:00)
[2022-02-20] MEDS ORDERED: MONTELUKAST 10 MG TAB PO SCH (09:00)
[2022-02-20] MEDS ORDERED: ENOXAPARIN 40 MG/0.4 ML SYRINGE SQ SCH (09:00)
[2022-02-20] MEDS ORDERED: ISOSORBIDE MONONITRATE ER 30 MG TAB.ER.24H PO SCH (09:00)
[2022-02-20 11:38] VITALS: BP 156/72; PULSE 88; TEMP 98
--- NOTE | 2022-02-20 12:52 | P.DS ---
Providers Attending physician: Luke Aguillon Consults: 02/19/22 09:20 Consult Physician Routine Consulting Provider: Gerardo Quiros Consult Reason/Comments: Medical management Do you want consulting provider notified?: Yes Primary care physician: Gerardo Quiros Hospital Course: Discharge diagnosis 1. Incarcerated incisional hernia status post repair with mesh placement Hospital course This is a 81-year-old male with an incarcerated incisional hernia he is status post open repair of incarcerated incisional hernia with mesh placement. Patient tolerated surgery well. His pain is controlled. He is up and ambulating. He is tolerating diet. He is afebrile. Patient does report some burning with urination with frequency. He may have the beginning of a urinary tract infection. He'll be discharged home with antibiotics. Patient's incision sites clean dry and intact. He is stable for discharge. Please refer to chart for any further details. Patient seen and examined with Dr. Aguillon Physician Septic Cleaner note has been reviewed by physician. Signing provider agrees with the documented findings, assessment, and plan of care. Patient Condition at Discharge: Stable Plan - Discharge Summary New Discharge Prescriptions: New Docusate [Colace] 100 mg PO BID #30 capsule oxyCODONE HCL [OxyIR] 5 mg PO Q6H PRN 3 Days #12 tab PRN Reason: Pain Amoxic-Pot Clav 875-125Mg [Augmentin 875-125] 1 tab PO BID 5 Days #10 tab Acetaminophen Tab [Tylenol] 1,000 mg PO Q6HR PRN #30 tablet PRN Reason: Pain Continue Atorvastatin Calcium [Lipitor] 40 mg PO HS ALPRAZolam [Xanax] 0.25 mg PO TID #21 tab hydrALAZINE HCL [Apresoline] 50 mg PO TID Isosorbide Mononitrate ER [Imdur] 30 mg PO QAM Clopidogrel [Plavix] 75 mg PO DAILY Omeprazole 20 mg PO QAM Aspirin EC [Ecotrin Low Dose] 81 mg PO DAILY Zinc Gluconate [Zinc] 50 mg PO DAILY Cholecalciferol [Vitamin D3 (25 Mcg = 1000 Iu)] 50 mcg PO DAILY Ascorbic Acid [Vitamin C] 500 mg PO DAILY Empagliflozin [Jardiance] 25 mg PO DAILY Montelukast [Singulair] 10 mg PO DAILY Furosemide [Lasix] 20 mg PO Q48H Discharge Medication List Atorvastatin Calcium [Lipitor] 40 mg PO HS 12/30/14 [History] ALPRAZolam [Xanax] 0.25 mg PO TID #21 tab 11/14/15 [Rx] Clopidogrel [Plavix] 75 mg PO DAILY 12/22/15 [History] Isosorbide Mononitrate ER [Imdur] 30 mg PO QAM 12/22/15 [History] hydrALAZINE HCL [Apresoline] 50 mg PO TID 12/22/15 [History] Aspirin EC [Ecotrin Low Dose] 81 mg PO DAILY 02/21/21 [History] Montelukast [Singulair] 10 mg PO DAILY 02/21/21 [History] Omeprazole 20 mg PO QAM 02/21/21 [History] Ascorbic Acid [Vitamin C] 500 mg PO DAILY 02/01/22 [History] Cholecalciferol [Vitamin D3 (25 Mcg = 1000 Iu)] 50 mcg PO DAILY 02/01/22 [History] Empagliflozin [Jardiance] 25 mg PO DAILY 02/01/22 [History] Furosemide [Lasix] 20 mg PO Q48H 02/01/22 [History] Zinc Gluconate [Zinc] 50 mg PO DAILY 02/01/22 [History] Acetaminophen Tab [Tylenol] 1,000 mg PO Q6HR PRN #30 tablet 02/20/22 [Rx] Amoxic-Pot Clav 875-125Mg [Augmentin 875-125] 1 tab PO BID 5 Days #10 tab 02/20/22 [Rx] Docusate [Colace] 100 mg PO BID #30 capsule 02/20/22 [Rx] oxyCODONE HCL [OxyIR] 5 mg PO Q6H PRN 3 Days #12 tab 02/20/22 [Rx] Follow up Appointment(s)/Referral(s): [facility], [NON-STAFF] - 1 Week Luke Aguillon MD [STAFF PHYSICIAN] - 02/27/22 2:00 pm Activity/Diet/Wound Care/Special Instructions: No driving while taking OxyIR No lifting over 10 pounds Shower daily. No soaking or tub baths for 2 weeks Very light activity until you are reevaluated at your follow up appointment with your surgeon Keep a log of ADI drain output and bring with you to your follow-up appointment Milk/strip drains 2-3 times a day Avoid Motrin and ibuprofen products due to history of chronic kidney disease Discharge Disposition: HOME WITH HOME HEALTH SERVICES
== END 2022-02-20 16:10 | disposition home health service (06) ==
LOC: OR 05:41 → 5NMEDONC 14:52 → OR 02-20 16:10
PROVIDERS: ATTEND Surgery
DX: K43.0 Incisional hernia with obstruction, without gangrene (principal); G89.18 Other acute postprocedural pain; D21.4 Benign neoplasm of connective and other soft tissue of abdomen; J44.9 Chronic obstructive pulmonary disease, unspecified; K21.9 Gastro-esophageal reflux disease without esophagitis; E78.5 Hyperlipidemia, unspecified; E11.9 Type 2 diabetes mellitus without complications; I10 Essential (primary) hypertension; I25.2 Old myocardial infarction; Z87.891 Personal history of nicotine dependence; Z95.5 Presence of coronary angioplasty implant and graft; Z91.041 Radiographic dye allergy status; Z79.82 Long term (current) use of aspirin; Z79.890 Hormone replacement therapy; Z79.899 Other long term (current) drug therapy; Z79.51 Long term (current) use of inhaled steroids; Z79.84 Long term (current) use of oral hypoglycemic drugs
CPT/HCPCS: 97162; 64999; 80048; 85025; 88302; 49561; 49568; C1781; J2250; J1200; J0690; J2405; J1650; J3010; J1885 ×2; J1170; J1644

== ENCOUNTER → 2022-10-25 | Outpatient (CLI) | payer MEDICARE ==
--- NOTE | 2022-10-27 00:16 | CT ---
EXAMINATION TYPE: CT abdomen pelvis wo con CT DLP: 739 mGycm, Automated exposure control for dose reduction was used. DATE OF EXAM: 10/25/2022 4:09 PM COMPARISON: CT abdomen pelvis most recent from and 02/09/2022. CLINICAL INDICATION:Male, 82 years old with history of R10.11 RIGHT UPPER QUADRANT PAIN; RUQ pain TECHNIQUE: Axial CT of the abdomen and pelvis. Sagittal and coronal reformats were created on a [employer] workstation. Contrast used: None Oral contrast used: without Oral Contrast FINDINGS: LOWER CHEST: Streaky atelectasis changes in lung bases. One of the sternotomy wires transversing the inferior aspect of the pericardium. ABDOMEN LIVER: Unremarkable GALLBLADDER AND BILE DUCTS: Cholelithiasis. PANCREAS: Unremarkable. SPLEEN: Unremarkable. ADRENAL GLANDS: Unremarkable. KIDNEYS AND URETERS: No evidence of hydronephrosis or renal calculus. Right renal cyst. PELVIS BLADDER: Unremarkable REPRODUCTIVE: Prostate is enlarged in size measuring 5.8 cm in transverse dimension. ABDOMEN & PELVIS STOMACH AND BOWEL: No evidence of bowel obstruction. Postsurgical changes to the bowel. No evidence o f bowel obstruction. There is a large stool burden throughout the colon. Multiple large diverticula a re seen throughout the colon. The appendix is normal and filled with feces. PERITONEUM/RETROPERITONEUM: No evidence of pneumoperitoneum or free fluid. VASCULATURE: Infrarenal aortic aneurysm measuring up to 3.4 x 3.1 cm. MUSCULOSKELETAL: No acute osseous abnormalities. Moderate disc degeneration changes are present throu ghout the thoracolumbar spine. LYMPH NODES: No gross evidence for lymphadenopathy. SOFT TISSUE/ABDOMINAL WALL: Right fat-containing inguinal hernia and left inguinal hernia contains so me fluid measuring 2.8 x 1.7 cm.. Postsurgical changes anterior abdominal wall. Post hernia repair ch anges from prior. IMPRESSION: 1. Cholelithiasis, no additional finding in the right upper quadrant 2 correlate with patient's pain . 2. Scattered colonic diverticula which are larger in caliber. 3. Infrarenal aortic aneurysm measuring up to 3.4 x 3.1 cm. Stable from prior. 4. Prostatomegaly correlate serum PSA. 5. Postsurgical changes to the sigmoid colon.
== END | disposition home or self-care (01) ==
LOC: RADCTMAIN 15:45
PROVIDERS: ATTEND Family Medicine
DX: K80.20 Calculus of gallbladder without cholecystitis without obstruction (principal); K57.30 Diverticulosis of large intestine without perforation or abscess without bleeding; I71.43 Infrarenal abdominal aortic aneurysm, without rupture; N40.0 Benign prostatic hyperplasia without lower urinary tract symptoms
CPT/HCPCS: 74176

== ENCOUNTER → 2023-06-13 | Outpatient (CLI) | payer MEDICARE ==
--- NOTE | 2023-06-13 10:01 | CT ---
EXAMINATION TYPE: CT lumbar spine wo con DATE OF EXAM: 06/13/2023 COMPARISON: 02/21/2021 HISTORY: lower back pain and down left leg x3 months CT DLP: combined DLP: 1004.6 mGycm CONTRAST: None TECHNIQUE: CT of the lumbar spine is performed on a spiral scan at 3 mm thick sections. Reconstructed images are performed in the coronal and sagittal planes. FINDINGS: T11-12, T10-11. These areas are included within the field of view. No focal disc herniation is eviden t. Disc levels are narrowed. No spinal canal stenosis is present. Some narrowing of the bilateral T10 -11 levels is noted T12-L1: Small central protrusion is present. This is mild to moderate anterior thecal sac compression . No AP spinal canal stenosis present. Neural foramen and moderate narrowing L1-L2: Broad-based disc bulge is moderate anterior thecal sac compression. Borderline spinal canal st enosis. Present. Facet hypertrophy is present with some posterior lateral thecal sac compression. Sev ere bilateral foraminal narrowing is present. L2-L3: Broad-based disc bulges moderate anterior thecal sac flattening. No AP spinal canal stenosis i s present. Severe bilateral foraminal stenosis is present. L3-L4: There is loss of disc height at this level. Endplate spurring is mild anterior thecal sac flat tening. Facet hypertrophy and ligamentum flavum laxity are contributing to spinal canal stenosis. Sev ere bilateral foraminal stenosis is present. L4-L5: Endplate changes and residual disc has mild anterior thecal sac flattening. Facet hypertrophy and ligamentum flavum laxity is posterior lateral thecal sac compression. These are contributing to s gulshan canal stenosis through the L4-5 level. There is loss of disc height and vacuum disc phenomenon. Severe Lateral recess stenosis is present. Moderate to severe bilateral foraminal stenosis is presen t. L5-S1: No focal disc herniation or significant disc bulge is evident. No spinal canal stenosis or n eural foraminal stenosis is present Vertebral alignment appears normal. There is loss of disc height and vacuum disc phenomenon L4-5 L1-2 and T12-L1. Endplate sclerotic changes are noted at the L3-4 level. Appears to be some aneurysmal di latation of the abdominal aorta extending out of the field of view on these images. Please see CT abd omen report same date. IMPRESSION: 1. Degenerative disc changes L4-5 and L3-4 and L1-2 and T12-L1. 2. Multilevel foraminal stenosis appears severe discussed above. 3. Spinal canal stenosis secondary to disc bulging and facet hypertrophy and ligamentum flavum laxity at the L4-5 and L3-4 levels.
--- NOTE | 2023-06-13 13:22 | CT ---
EXAMINATION TYPE: CT abdomen wo con DATE OF EXAM: 06/13/2023 COMPARISON: 10/25/2022 INDICATION: pt states he has a "smaller kidney", no pain DLP: combined DLP: 1004.6 mGycm, Automated exposure control for dose reduction was used. CONTRAST: 0 mL of Isovue 300. Study performed without Oral Contrast TECHNIQUE: Axial images were obtained from above the diaphragm to the pubic rami in the axial plane a t 5 mm thick sections. Reconstructed images are reviewed on the computer in the coronal plane. FINDINGS: Limited CT sections are obtained the lung bases. The lung bases are clear. CT ABDOMEN: Liver: Normal Spleen: Calcified granulomata within the spleen. Pancreas: Normal Adrenal glands: The adrenal glands are normal. Gallbladder: Cholelithiasis. Kidneys: No masses are evident. No hydronephrosis is present. There is a 1.8 cm cyst on the medial right kidney. Medial inferior pole right renal cyst is present measuring 2.4 cm. Delayed images were obtained through the kidneys, which remain unremarkable. Aorta: Vascular calcification is within the aorta. There is fusiform prominence of the mid abdominal aorta with an AP diameter of 3.5 cm. Inferior vena cava: Normal. Loops of bowel within the abdomen without oral contrast appear unremarkable. Few diverticuli within t he proximal transverse colon. IMPRESSION: 1. Mild diverticulosis of transverse colon. 2. Right renal cysts. 3. No significant interval change.
== END | disposition home or self-care (01) ==
LOC: RADCTMAIN 08:58
PROVIDERS: ATTEND Family Medicine
DX: M51.36 Other intervertebral disc degeneration, lumbar region (principal); M47.816 Spondylosis without myelopathy or radiculopathy, lumbar region; M48.061 Spinal stenosis, lumbar region without neurogenic claudication; M51.26 Other intervertebral disc displacement, lumbar region; M99.73 Connective tissue and disc stenosis of intervertebral foramina of lumbar region; M24.28 Disorder of ligament, vertebrae; K57.30 Diverticulosis of large intestine without perforation or abscess without bleeding; N28.1 Cyst of kidney, acquired
CPT/HCPCS: 72131; 74150

== ENCOUNTER → 2023-10-31 | Outpatient (CLI) | payer MEDICARE ==
--- NOTE | 2023-10-31 08:52 | USB ---
Reason for Exam: Clinical finding. Technique: Method: Targeted. Findings: The axilla of both breasts and the retroareolar of both breasts were scanned. Flame-shaped retroareolar densities seen bilaterally.. Overall Assessment: Probably benign, BI-RAD 3 Management: Screening Mammogram of both breasts in 1 year. A clinical breast exam by your physician is recommended on an annual basis and results should be correlated with mammographic findings. This exam should not preclude additional follow-up of suspicious palpable abnormalities. Results were given to the patient verbally at the time of exam. Electronically signed and approved by: Chucky Danielle M.D. Radiologis
--- NOTE | 2023-10-31 13:43 | MM ---
Reason for Exam: Clinical finding. Tissue Density: The breasts are heterogeneously dense, which may obscure small masses. Findings: Analyzed By CAD. Retroareolar increased density noted bilaterally. Findings likely reflect gynecomastia. Overall Assessment: Incomplete: need additional imaging evaluation, BI-RAD 0 Management: Diagnostic Breast Ultrasound of both breasts. . Results were given to the patient verbally at the time of exam. Patient should continue monthly self-breast exams. A clinical breast exam by your physician is recommended on an annual basis. This exam should not preclude additional follow-up of suspicious palpable abnormalities. Note on [place] scores and lifetime risk: 1. A [place] score greater than 3% is considered moderate risk. If this is the case, consider specialist referral to assess eligibility for a risk reducing agent. 2. If overall lifetime risk for the development of breast cancer is 20% or higher, the patient may qualify for future screening with alternating mammogram and breast MRI. Note on [place] scores and lifetime risk: 1. A [place] score greater than 3% is considered moderate risk. If this is the case, consider specialist referral to assess eligibility for a risk reducing agent. 2. If overall lifetime risk for the development of breast cancer is 20% or higher, the patient may qualify for future screening with alternating mammogram and breast MRI. Electronically signed and approved by: Chucky Danielle M.D. Radiologis
== END | disposition home or self-care (01) ==
LOC: RADMAMWWP 08:11
PROVIDERS: ATTEND Family Medicine
DX: N64.4 Mastodynia (principal)
CPT/HCPCS: 77066; 76642; G0279; 77062

== ENCOUNTER → 2023-12-10 | Outpatient (CLI) | payer MEDICARE ==
--- NOTE | 2023-12-10 13:13 | US ---
EXAMINATION TYPE: US kidneys/renal and bladder DATE OF EXAM: 12/10/2023 COMPARISON: CT 06/13/2023 US 02/01/2022 CLINICAL INDICATION: Male, 83 years old with history of N18.4 CHRONIC KIDNEY DISEASE, STAGE 4 (SEVERE ); Nocturia EXAM MEASUREMENTS: Right Kidney: 7.4 x 3.9 x 5.0 cm Left Kidney: 10.8 x 4.5 x 4.2 cm Post Void Residual Volume: NA mL Right Kidney: Perinephric fat stranding; Simple cyst seen = 2.2 x 2.2 x 2.0 cm Left Kidney: Perinephric fat stranding Bladder: Not full distended Bilateral Jets seen: Not able to assess Normal Post Void Residual: NA There is no evidence for hydronephrosis at this point in time. No nephrolithiasis is seen. No solid masses are identified. The urinary bladder is anechoic. IMPRESSION: Simple cyst right kidney.
== END | disposition home or self-care (01) ==
LOC: RADUSWWP 12:39
PROVIDERS: ATTEND Family Medicine
DX: N18.4 Chronic kidney disease, stage 4 (severe) (principal); N28.1 Cyst of kidney, acquired
CPT/HCPCS: 76770